=== PATIENT | male | born 1950 | race Caucasian/White ===

== ENCOUNTER 2020-09-16 20:46 | Inpatient (IN) | payer MEDICARE, BC ==
[2020-09-16] MEDS ORDERED: SODIUM CHLORIDE 0.9% 500 ML 500 ML IV STA (21:03)
[2020-09-16] MEDS ORDERED: DILTIAZEM DRIP BOLUS FROM BAG 1 MG SOLN IV ONE (21:04)
[2020-09-16] MEDS ORDERED: NITROGLYCERIN-D5W PMX 50 MG in DEXTROSE/WATER 1 250ML.BAG IV ONE (21:06)
[2020-09-16 21:14] LABS: Basophils % (A) 1 %; Eosinophils # (A) 0.5 k/uL (0-0.7); Eosinophils % (A) 6 %; HGB 14.8 gm/dL (13.0-17.5); Lymphocytes # (A) 1.6 k/uL (1.0-4.8); Lymphocytes % (A) 20 %; MCHC 32.2 g/dL (31.0-37.0); MCV 93.1 fL (80.0-100.0); Mean Platelet Volume 8.3; Monocytes # (A) 0.4 k/uL (0-1.0); Monocytes % (A) 5 %; Neutrophils # (A) 5.4 k/uL (1.3-7.7); Neutrophils % (A) 67 %; Platelet Count 164 k/uL (150-450); RBC 4.94 m/uL (4.30-5.90); RDW 13.6 % (11.5-15.5)
[2020-09-16 21:21] LABS: ALT 25 U/L (4-49); AST 26 U/L (17-59); African American GFR (CKD) >90 (>60 ml/min/1.73 sqM); Albumin 3.9 g/dL (3.5-5.0); Alkaline Phosphatase 69 U/L (38-126); Anion Gap 8 mmol/L; Blood Urea Nitrogen 20 mg/dL (9-20); Calcium 9.1 mg/dL (8.4-10.2); Carbon Dioxide 25 mmol/L (22-30); Chloride 106 mmol/L (98-107); Glucose 224 mg/dL (74-99); Magnesium 1.8 mg/dL (1.6-2.3); Non-African American GFR(CKD) 82 (>60 ml/min/1.73 sqM); Potassium 3.9 mmol/L (3.5-5.1); Sodium 139 mmol/L (137-145); Total Bilirubin 0.4 mg/dL (0.2-1.3); Total Protein 6.9 g/dL (6.3-8.2)
[2020-09-16] MEDS ORDERED: HEPARIN SODIUM,PORCINE 5,000 UNIT/ML 1 ML VIAL IV PRN (21:25)
[2020-09-16] MEDS ORDERED: HEPARIN SODIUM,PORCINE 5,000 UNIT/ML 1 ML VIAL IV ONE (21:25)
[2020-09-16] MEDS ORDERED: HEPARIN SOD,PORK IN 0.45% NACL 25,000 UNIT in 0.45% NACL 1 250ML.BAG IV SCH (21:30)
[2020-09-16] MEDS ORDERED: DILTIAZEM 125 MG in SODIUM CHLORIDE 0.9% 100 ML IV SCH (21:30)
--- NOTE | 2020-09-16 21:32 | XR ---
EXAMINATION TYPE: XR chest 2V DATE OF EXAM: 09/16/2020 COMPARISON: March 06, 2009 HISTORY: Chest pain TECHNIQUE: 2 views FINDINGS: There is no heart failure nor confluent pneumonic infiltrate. There is slight blunting righ t costophrenic angle. There are no hilar masses. Heart size is normal. There are chest leads. IMPRESSION: Pleural diaphragmatic scarring at the right lung base unchanged. No acute lung disease.
[2020-09-16 21:37] LABS: INR 1.1 (<1.2); Prothrombin Time 11.2 sec (9.0-12.0)
--- NOTE | 2020-09-16 21:40 | ED ---
General Adult HPI - General Chief complaint: Chest Pain Stated complaint: Chest pain Time Seen by Provider: 09/16/20 21:03 Source: patient, EMS, RN notes reviewed, old records reviewed Mode of arrival: EMS Limitations: no limitations - History of Present Illness Initial comments: 70-year-old male history of hypertension, diabetes, tobacco use presenting for evaluation of chest pain. Pain began approximately one hour prior to arrival. This was left upper chest pain which radiated to both upper extremities. Was associated with diaphoresis. No vomiting. He has no known history of coronary artery disease. He states that approximately one week ago he had a similar episode which was very brief. EMS was contacted the patient was given aspirin and nitroglycerin and he has had significant improvement in his pain at the time my evaluation. - Related Data Allergies Allergy/AdvReac Type Severity Reaction Status Date / Time No Known Allergies Allergy Verified 09/16/20 22:11 Review of Systems ROS Statement: Those systems with pertinent positive or pertinent negative responses have been documented in the HPI. ROS Other: All systems not noted in ROS Statement are negative. Past Medical History Past Medical History: COPD, Hypertension History of Any Multi-Drug Resistant Organisms: None Reported Past Surgical History: Adenoidectomy, Orthopedic Surgery, Tonsillectomy Past Psychological History: No Psychological Hx Reported Smoking Status: Current every day smoker Past Alcohol Use History: Rare Past Drug Use History: None Reported General Exam Limitations: no limitations General appearance: alert, in no apparent distress Head exam: Present: atraumatic, normocephalic Eye exam: Present: normal appearance, PERRL ENT exam: Present: normal exam Neck exam: Present: normal inspection. Absent: tenderness, meningismus Respiratory exam: Present: normal lung sounds bilaterally. Absent: respiratory distress, wheezes Cardiovascular Exam: Present: tachycardia, irregular rhythm GI/Abdominal exam: Present: soft. Absent: distended, tenderness, guarding, rebound Extremities exam: Present: normal inspection, normal capillary refill. Absent: pedal edema Neurological exam: Present: alert, oriented X3, CN II-XII intact. Absent: motor sensory deficit Psychiatric exam: Present: normal affect, normal mood Skin exam: Present: warm, dry, intact. Absent: cyanosis, diaphoretic Course Vital Signs 09/16/20 09/16/20 20:48 21:35 Temperature 98.2 F Pulse Rate 134 H 114 H Respiratory 18 18 Rate Blood Pressure 142/87 111/86 O2 Sat by Pulse 97 98 Oximetry - Reevaluation(s) Reevaluation #1: 09/16/20 3253 Case discussed with both Dr. Gilmore and Dr. Martinez. EKG Findings - EKG Comments: EKG Findings:: EKG: Atrial fibrillation with RVR, lateral precordial depression, no ST segment elevation, rate of 120, QRS duration 102, QTC 466 Medical Decision Making - Medical Decision Making 70-year-old male presented with chest pain, found to be in A. fib with RVR with lateral precordial depression on EKG. No ST segment elevation. He started on Cardizem, he had been given aspirin and nitroglycerin by EMS. He is heparinized in the emergency department. Chest x-ray is negative for focal pneumonia, no acute findings. He has a normal CBC, normal CMP with exception of hyperglycemia and an initial troponin of 0.086. Case is discussed with both the admitting physician and the rigging up man. He will be admitted to a monitored bed. Diagnosis: A. fib with RVR, new onset. Non-ST segment elevated SD. - Lab Data Result diagrams: 09/16/20 21:05 09/16/20 21:05 Lab Results 09/16/20 09/16/20 09/16/20 Range/Units 21:05 21:05 21:05 WBC 8.0 (3.8-10.6) k/uL RBC 4.94 (4.30-5.90) m/uL Hgb 14.8 (13.0-17.5) gm/dL Hct 46.0 (39.0-53.0) % MCV 93.1 (80.0-100.0) fL MCH 30.0 (25.0-35.0) pg MCHC 32.2 (31.0-37.0) g/dL RDW 13.6 (11.5-15.5) % Plt Count 164 (150-450) k/uL MPV 8.3 Neutrophils % 67 % Lymphocytes % 20 % Monocytes % 5 % Eosinophils % 6 % Basophils % 1 % Neutrophils # 5.4 (1.3-7.7) k/uL Lymphocytes # 1.6 (1.0-4.8) k/uL Monocytes # 0.4 (0-1.0) k/uL Eosinophils # 0.5 (0-0.7) k/uL Basophils # 0.0 (0-0.2) k/uL PT 11.2 (9.0-12.0) sec INR 1.1 (<1.2) APTT 26.0 (22.0-30.0) sec Sodium 139 (137-145) mmol/L Potassium 3.9 (3.5-5.1) mmol/L Chloride 106 (98-107) mmol/L Carbon Dioxide 25 (22-30) mmol/L Anion Gap 8 mmol/L BUN 20 (9-20) mg/dL Creatinine 0.96 (0.66-1.25) mg/dL Est GFR (CKD-EPI)AfAm >90 (>60 ml/min/1.73 sqM) Est GFR (CKD-EPI)NonAf 82 (>60 ml/min/1.73 sqM) Glucose 224 H (74-99) mg/dL Calcium 9.1 (8.4-10.2) mg/dL Magnesium 1.8 (1.6-2.3) mg/dL Total Bilirubin 0.4 (0.2-1.3) mg/dL AST 26 (17-59) U/L ALT 25 (4-49) U/L Alkaline Phosphatase 69 (38-126) U/L Troponin I (0.000-0.034) ng/mL NT-Pro-B Natriuret Pep pg/mL Total Protein 6.9 (6.3-8.2) g/dL Albumin 3.9 (3.5-5.0) g/dL 09/16/20 09/16/20 Range/Units 21:05 21:05 WBC (3.8-10.6) k/uL RBC (4.30-5.90) m/uL Hgb (13.0-17.5) gm/dL Hct (39.0-53.0) % MCV (80.0-100.0) fL MCH (25.0-35.0) pg MCHC (31.0-37.0) g/dL RDW (11.5-15.5) % Plt Count (150-450) k/uL MPV Neutrophils % % Lymphocytes % % Monocytes % % Eosinophils % % Basophils % % Neutrophils # (1.3-7.7) k/uL Lymphocytes # (1.0-4.8) k/uL Monocytes # (0-1.0) k/uL Eosinophils # (0-0.7) k/uL Basophils # (0-0.2) k/uL PT (9.0-12.0) sec INR (<1.2) APTT (22.0-30.0) sec Sodium (137-145) mmol/L Potassium (3.5-5.1) mmol/L Chloride (98-107) mmol/L Carbon Dioxide (22-30) mmol/L Anion Gap mmol/L BUN (9-20) mg/dL Creatinine (0.66-1.25) mg/dL Est GFR (CKD-EPI)AfAm (>60 ml/min/1.73 sqM) Est GFR (CKD-EPI)NonAf (>60 ml/min/1.73 sqM) Glucose (74-99) mg/dL Calcium (8.4-10.2) mg/dL Magnesium (1.6-2.3) mg/dL Total Bilirubin (0.2-1.3) mg/dL AST (17-59) U/L ALT (4-49) U/L Alkaline Phosphatase (38-126) U/L Troponin I 0.086 H* (0.000-0.034) ng/mL NT-Pro-B Natriuret Pep 425 pg/mL Total Protein (6.3-8.2) g/dL Albumin (3.5-5.0) g/dL Critical Care Time Critical Care Time: Yes Total Critical Care Time: 35 Disposition Clinical Impression: Acute non-ST elevation myocardial infarction (NSTEMI), Atrial fibrillation with RVR Disposition: ADMITTED IP TO THIS [facility] Condition: Serious Is patient prescribed a controlled substance at d/c from ED?: No Referrals: Nonstaff,Physician [Primary Care Provider] - 1-2 days Decision to Admit Reason: Admit from EC Decision Date: 09/16/20 Decision Time: 22:10
[2020-09-16] MEDS ORDERED: NON FORMULARY DRUG (Fluticasone/Umeclidin/Vilanter [Trelegy Ellipta 100-62.5-25] 1 EACH Bl INHALATION SCH (22:45)
[2020-09-17] MEDS ORDERED: IPRATROPIUM-ALBUTEROL 3 ML NEB INHALATION PRN (00:21)
--- NOTE | 2020-09-17 00:30 | P.HPIM ---
History of Present Illness H&P Date: 09/16/20 Chief Complaint: chest pain 70 year old male , smoker, hypertension controlled with meds, DM on oral hypoglycemic agents. patient comes in after experiencing sudden chest pain , 8/10 in severity , described as left sided and retrosternal heaviness radiating to both arms, associated with numbness over bilateral hands. denies any associated nausea vomiting, SOB, dizziness, wheezing , or sweating. he recalls raking leaves and doing some yard work earlier today, however, he was walking the dog when his chest mohan started. he also recalls similar event about 4 days ago , again after he raked leaves and did yard work. pain did not subside, he found his blood pressure elevated, and his pulse thready , decided to notify EMS. pain started improving after receiving 2 nitro SL, and aspirin. he currently denies any chest pain , but feels some discomfort, denies any URI symptoms, or GI symptoms. patient denies any cardiac history , but had stress test done a year ago , and was negative in the ED, EKG showed new onset afib with RVR, elevated trops. Review of Systems Pertinent positives as noted in HPI. All other systems were reviewed and are negative Past Medical History Past Medical History: COPD, Hypertension History of Any Multi-Drug Resistant Organisms: None Reported Past Surgical History: Adenoidectomy, Orthopedic Surgery, Tonsillectomy Past Psychological History: No Psychological Hx Reported Smoking Status: Current every day smoker Past Alcohol Use History: Rare Past Drug Use History: None Reported - Past Family History family Family Medical History: Coronary Artery Disease (CAD) Medications and Allergies Home Medications Medication Instructions Recorded Confirmed Type Aspirin [Adult Low Dose Aspirin EC] 81 mg PO HS 09/16/20 09/16/20 History Fluticasone/Umeclidin/Vilanter 1 puff INHALATION Q72H 09/16/20 09/16/20 History [Trelegy Ellipta 100-62.5-25] Losartan Potassium [Cozaar] 25 mg PO HS 09/16/20 09/16/20 History Multivitamins, Thera [Multivitamin 1 tab PO HS 09/16/20 09/16/20 History (formulary)] metFORMIN HCL [Glucophage] 500 mg PO BID 09/16/20 09/16/20 History Allergies Allergy/AdvReac Type Severity Reaction Status Date / Time No Known Allergies Allergy Verified 09/16/20 22:11 Physical Exam Vitals: Vital Signs Temp Pulse Resp BP Pulse Ox 09/16/20 22:30 106 H 18 122/78 98 09/16/20 22:15 108 H 18 135/88 98 09/16/20 22:00 114 H 18 127/85 98 09/16/20 21:35 114 H 18 111/86 98 09/16/20 20:48 98.2 F 134 H 18 142/87 97 Intake and Output 09/16/20 09/16/20 09/16/20 06:59 14:59 22:59 Other: Weight 114.759 kg Constitutional: No acute distress, conversant, pleasant Eyes: Anicteric sclerae, moist conjunctiva, Pupils equal round reactive to light ENMT: NC/AT Oropharynx clear, no erythema, or exudates Neck: Supple, FROM, no masses, or JVD No carotid bruits No thyromegaly Lungs: Clear to auscultation Clear to percussion Normal respiratory effort, no accessory muscle use Cardiovascular: Heart regular in rate and rhythm, No murmurs, gallops, or rubs No peripheral edema Abdominal: Soft Nontender, no guarding, rebound or rigidity Abdomen moving with respiration Normoactive bowel sounds No hepatomegaly, No splenomegaly No palpable mass No abdominal wall hernia noted Skin: Normal temperature, tone, texture, turgor No induration No subcutaneous nodules No rash, lesions No ulcers Extremities: No digital cyanosis No clubbing Pedal pulses intact and symmetrical Radial pulses intact and symmetrical No calf tenderness Psychiatric: Alert and oriented to person, place and time Appropriate affect fair judgement Neuro Muscles Strength 5/5 in all 4 extremities Sensation to light touch grossly present throughout Cranial nerves II-XII grossly intact No focal sensory deficits Lymphatics: no palpable cervical or supraclavicular , or inguinal lymph nodes Results CBC & Chem 7: 09/16/20 21:05 09/16/20 21:05 Labs: Abnormal Lab Results - Last 24 Hours (Table) 09/16/20 09/16/20 Range/Units 21:05 21:05 Glucose 224 H (74-99) mg/dL Troponin I 0.086 H* (0.000-0.034) ng/mL Assessment and Plan Assessment: new onset Aifb with RVR NSTEMI plan aspirin , statin monitoring analyst trend trops nitro for pain and blood pressure control cardizem drip heparin drip cardiology consult DM insulin sliding scale hypertension resume home meds CODE STATUS:full code DVT prophylaxis: on heparin drip Discussed with: Patient, ER Anticipated length of stay < than [address]: home A total of 75 minutes was spent on the care of this complex patient more than 50% of the time was spent in counseling and care coordination.
[2020-09-17 03:34] LABS: Basophils # (A) 0.1 k/uL (0-0.2); Basophils % (A) 1 %; Eosinophils # (A) 0.3 k/uL (0-0.7); Eosinophils % (A) 4 %; HCT 42.9 % (39.0-53.0); HGB 14.4 gm/dL (13.0-17.5); Lymphocytes # (A) 1.9 k/uL (1.0-4.8); Lymphocytes % (A) 28 %; MCH 31.4 pg (25.0-35.0); MCHC 33.7 g/dL (31.0-37.0); MCV 93.3 fL (80.0-100.0); Mean Platelet Volume 8.5; Monocytes # (A) 0.4 k/uL (0-1.0); Monocytes % (A) 7 %; Neutrophils % (A) 58 %; Platelet Count 153 k/uL (150-450); RDW 13.2 % (11.5-15.5); WBC 6.8 k/uL (3.8-10.6)
[2020-09-17 04:15] LABS: Cholesterol 159 mg/dL (<200); HDL Cholesterol 53 mg/dL (40-60); LDL Cholesterol,Calculated 86 mg/dL (0-99); Triglycerides 100 mg/dL (<150)
[2020-09-17] MEDS ORDERED: VERAPAMIL 2.5 MG/ML 2 ML AMP ONE (06:39)
[2020-09-17] MEDS ORDERED: fentaNYL (PF) 50 MCG/ML 2 ML AMP ONE (06:40)
[2020-09-17] MEDS ORDERED: LIDOCAINE 1% INJ 10MG/ML (20 ML MDV) ONE (06:40)
[2020-09-17] MEDS ORDERED: fentaNYL (PF) 50 MCG/ML 2 ML AMP IV ONE (06:46)
[2020-09-17] MEDS ORDERED: LIDOCAINE 1% INJ 10MG/ML (20 ML MDV) SQ ONE (06:47)
[2020-09-17] MEDS ORDERED: IV FLUID CONTINUATION 900 ML IV ONE (06:50)
[2020-09-17] MEDS ORDERED: VERAPAMIL SYRINGE (5 MG/10 ML) INTRAARTER ONE (06:50)
[2020-09-17] MEDS ORDERED: HEPARIN SODIUM 1,000 UN/ML (10ML VL) ONE (06:51)
[2020-09-17] MEDS ORDERED: HEPARIN SODIUM 1,000 UN/ML (10ML VL) IV ONE (06:55)
[2020-09-17] MEDS ORDERED: MIDAZOLAM 2 MG/2 ML VIAL IVP ONE (06:55)
[2020-09-17] MEDS ORDERED: RX INFO: IV CONTRAST WAS GIVEN 1 EACH MISC MISCELLANE PRN (07:17)
[2020-09-17] MEDS ORDERED: HEPARIN SODIUM,PORCINE 5,000 UNIT/ML 1 ML VIAL IV PRN (07:20)
[2020-09-17] MEDS ORDERED: SODIUM CHLORIDE 0.9% 1,000 ML IV SCH (07:30)
--- NOTE | 2020-09-17 07:34 | CONS ---
CONSULTATION CARDIOLOGY CONSULTATION: Mr. Lindsey is a 70-year-old male with known history of hypertension, hyperlipidemia, diabetes mellitus, chronic tobacco use, who presented to the hospital with an episode of chest discomfort. He was walking his dog when he had discomfort in the chest radiating to the left arm and when he checked his blood pressure, he noted that his heart rate was fast. When he came into the emergency room, he was in atrial fibrillation with rapid ventricular response. His pain resolved after getting sublingual nitroglycerin by the EMS. The patient is relatively active physically, has no exertional chest pain. He denies any prior history of cardiac disease. He, according to him, underwent a stress test about a year ago that was unremarkable. He denies any history of palpitation or arrhythmia. His breathing is stable, although he has chronic dyspnea at times related to his smoking. He denies any significant PND or orthopnea. He has some peripheral edema that resolved a few months ago. His coronary risk factors are remarkable for smoking, hypertension, diabetes. There is a family history of premature coronary artery disease in his father. MEDICATION: Include metformin 500 mg twice a day, Trelegy Ellipta, Cozaar 25 mg daily, and aspirin. REVIEW OF SYSTEMS: RESPIRATORY SYSTEM: He has mild dyspnea on exertion related to his chronic tobacco use. GI SYSTEM: No recent GI bleeding. No peptic ulcer disease. SYSTEM: No dysuria or hematuria. NERVOUS SYSTEM: No stroke or seizure. SOCIAL HISTORY: He does not drink alcohol. He drinks moderate caffeine and smokes as noted. PHYSICAL EXAMINATION: GENERAL: A 70-year-old male, alert, oriented, no apparent distress. VITAL SIGNS: Blood pressure 122/70 with a heart in the 60s. HEAD: Normocephalic, eyes sclerae anicteric. NECK: Good carotid upstroke. No bruit, no jugular venous distention. LUNGS: Clear to auscultation. HEART: Regular rate and rhythm S1, S2. No S3 with a systolic murmur at the base. No diastolic murmur. No rub. ABDOMEN: Soft, nontender, positive bowel sounds, no organomegaly. EXTREMITIES: No edema. Intact pulses. LAB DATA: Revealed BUN and creatinine of 20 and 0.96. Troponin 0.86, 1.7, 5.4, cholesterol 159, LDL of 86. Hemoglobin of 14.4. IMAGING: Chest x-ray revealed no acute infiltrate. EKG revealed atrial fibrillation rate of [address]-T wave changes with small QS in leads 3 and AVF. Subsequent EKG reveals sinus mechanism with mild ST-T wave changes in leads 2, 3 and AVF. IMPRESSION: 1. Non ST-segment elevation myocardial infarction. 2. Paroxysmal atrial fibrillation back in sinus mechanism. 3. Hypertension. 4. Diabetes. 5. Chronic tobacco use. RECOMMENDATION: I have recommended to proceed with coronary angiography to assess his status and guide his treatment. The rationale behind the procedures, risks and complication were discussed with the patient and he is full understanding and agreement. Thank you for this consult. Will follow with you. MMROSCOE / IJN: [id number] / CLYDE
[2020-09-17 07:45] LABS: Glucose,Whole Blood 108 mg/dL (75-99)
[2020-09-17] MEDS ORDERED: SYMBICORT 80-4.5 MCG INHALER INHALATION SCH (08:00)
[2020-09-17] MEDS ORDERED: ALBUTEROL NEBULIZED 2.5 MG/3 ML INHALATION PRN (08:32)
[2020-09-17] MEDS ORDERED: ASPIRIN 325 MG TAB PO SCH (09:00)
--- NOTE | 2020-09-17 09:01 | CC ---
CARDIAC CATHETERIZATION REPORT PROCEDURE PERFORMED: Cardiac catheterization. HISTORY: Mr. Lindsey is a 70-year-old male with a known history of hypertension, diabetes, chronic tobacco use and a family history of premature coronary artery disease who presented with symptoms of chest discomfort radiating to the left arm and atrial fibrillation. He subsequently converted to sinus mechanism. He had mild troponin elevation. In view of that, recommendation regarding cardiac catheterization, the procedures, risks, and complication were discussed with the patient who is in full understanding and agreement. PROCEDURE: Patient was brought to flower shop laborer/designer in a fasting semi-sedated state after receiving fentanyl and Benadryl and achieving moderate conscious sedated state. Using Xylocaine anesthesia and Seldinger technique, a 6-Zambian sheath was introduced in the right radial artery. Selective right and left angiography with 5-Zambian, 3.5 bent, right and left Nevin catheters. Multiple views of the coronary arteries including hemiaxial views were obtained. Following that, a 5-[place]ian tight pigtail catheter was introduced in the left ventricle and a 30-degree COSME view of the left ventricle was obtained. Following that, catheter and sheath were removed. Hemostasis was obtained and deployment of TR band. There was no immediate complication. Patient was returned to his room in stable condition. Of note, the patient received an additional 3000 units intravenous heparin as well as intra-arterial verapamil. FINDINGS: FLUOROSCOPY: There was severe calcification involving the left anterior descending artery, left main and the right coronary artery. LEFT MAIN: This is a large-sized vessel, bifurcating into left circumflex, left anterior descending artery. Left main coronary artery has a 10% plaque distally. The rest of the vessel has no high-grade stenosis LEFT ANTERIOR DESCENDING ARTERY: This is a large-sized vessel reaching to the apex with a wraparound apex segment giving rise to a very proximal diagonal branch. At the takeoff of the first septal tabber, there is a 99% stenosis and following that there is a long tubular lesion up to 60% in the LAD extending to the mid segment. The rest of the vessel has no high-grade stenosis. LEFT CIRCUMFLEX: This is a nondominant vessel, large in caliber giving rise to a large obtuse marginal branch. The left circumflex proximally has 20% to 30% plaque. The rest of the vessel has no high-grade stenosis. RIGHT CORONARY ARTERY: This vessel is totally occluded proximally with bridging collaterals and minimal antegrade flow. COLLATERALS: There is good collateral from the left coronary system into the right side PD and PLV and distal right coronary artery. LEFT VENTRICULOGRAM: Left ventriculogram was performed in 30-degree COSME view and revealed a normal size with inferior wall hypokinesis, estimated ejection fraction 45%. There was no significant mitral regurgitation. There was a suggestion of an abdominal aortic aneurysm, although not well visualized. HEMODYNAMICS: There was no gradient across the aortic valve/ the left ventricle end-diastolic pressure was 16-20 mmHg. CONCLUSION: 1. Calcified coronary arteries. 2. 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 3. Critical stenosis in the proximal left anterior descending in a long segment. 4. Mild disease in the left circumflex. 5. Mildly impaired left ventricular systolic function. RECOMMENDATION: In view of finding anatomy and the history of diabetes mellitus, I have recommend proceeding with evaluation for coronary artery bypass grafting to the LAD and to the right coronary artery. Those findings and recommendation were discussed with the patient and his family who consented and are in agreement. Duration of procedure is 21 minute. MMODL / IJN: [id number] /
--- NOTE | 2020-09-17 09:40 | CONS ---
CONSULTATION PULMONARY/CRITICAL CARE CONSULTATION: DATE OF SERVICE: 09/17/2020 This is a 70-year-old gentleman who is the father of one of our cardiothoracic nurse practitioners. He has a history of long-standing hypertension and recently diagnosed diabetes. He also has underlying COPD from heavy tobacco use of more than 50 years. Anyway, he came into the emergency room on September 16 at 20:46 with complaints of chest pain. The pain was in the center of his chest and radiated to both upper extremities. He had some diaphoresis. He had no vomiting. The patient has no established history of coronary artery disease. There is a family history of CAD as well. Anyway, the patient underwent catheterization and was found to have significant coronary artery disease and is thought to be a candidate for bypass grafting. We saw him in the extended stay unit. CURRENT MEDICATIONS: Include the recently initiated metformin for diabetes, Trelegy 1 puff a day, multivitamins, losartan, and baby aspirin. ALLERGIES: Denied. MEDICAL HISTORY: Recently diagnosed diabetes mellitus and hypertension, as well as underlying COPD. SURGICAL HISTORY: Includes adenoidectomy, tonsillectomy, and some orthopedic procedures. SOCIAL HISTORY: Positive for ongoing tobacco use. He has been smoking for 50+ years. Alcohol use is rare. No illicit drug use. OCCUPATIONAL HISTORY: He is currently retired. Apparently worked as a laborer landscape. REVIEW OF SYSTEMS: CONSTITUTIONAL: Negative. NEUROLOGIC: Negative. HEENT: Negative. CARDIOVASCULAR: Chest pain. PULMONARY: Wheezing, shortness of breath. GI: Negative. : Negative. RHEUMATOLOGIC: Negative. IMMUNOLOGIC: Negative. ENDOCRINOLOGIC: Negative. DERMATOLOGIC: Negative. PHYSICAL EXAMINATION: VITAL SIGNS: Current vital signs include a temperature of 98.1, heart rate is 61, respiratory rate 16, blood pressure 124/68 and room air saturation 96%. Appears in no acute distress. HEENT: Examination is grossly unremarkable. NECK: Supple. Full range of motion. No adenopathy. Neck veins are flat. CARDIOVASCULAR: Examination reveals regular rhythm and rate. S1, S2 normal. Heart rate about 60. LUNGS: Reveal some diffuse inspiratory and expiratory wheezes. No rhonchi. No crackles. Breath sounds equal. ABDOMEN: Soft. EXTREMITIES: Intact. No edema. SKIN: Without rash. NEUROLOGIC: Examination is brief but nonfocal. LABORATORY DATA: White count 6.8, hemoglobin 14.4, hematocrit 42.9, platelet count is 153,000. PT/INR normal. PTT 35.8. Sodium, potassium, chloride, CO2 all normal. Anion gap normal. BUN and creatinine were normal. Glucose 224. Troponins were 0.086, 1.760 and 5.460. EKG shows evidence of some atrial fibrillation with RVR. CURRENT MEDICATIONS: Include aspirin, Lipitor, Trelegy 1 puff a day, to be brought from home, IV heparin, insulin, losartan, metoprolol, Bactroban ointment, nitroglycerin ointment, and saline at 75 mL an hour. ASSESSMENT: 1. Status post catheterization with evidence of coronary artery disease, cath report is currently pending. 2. History of hypertension. 3. Non ST-segment elevation myocardial infarction. 4. Atrial fibrillation. 5. Diabetes mellitus. 6. Long history of tobacco use, with likely underlying chronic obstructive pulmonary disease. PLAN: The patient will bring his Trelegy from home. It is a good medication. This is a combination of long-acting muscarinic antagonist, long-acting beta agonist, inhaled corticosteroid. We will add some short-acting beta agonist p.r.n. No additional recommendations are made. Probably bypass grafting early next week. No additional recommendations are made other than ordering a pulmonary function test. MMODL / IJN: [id number] /
--- NOTE | 2020-09-17 09:40 | US ---
EXAMINATION TYPE: US carotid duplex BILAT DATE OF EXAM: 09/17/2020 COMPARISON: NONE CLINICAL HISTORY: 70-year-old male Pre-Op Cardiac Surgery. TECHNIQUE: Carotid duplex ultrasound examination. An direct Doppler criteria was utilized. FINDINGS: EXAM MEASUREMENTS: RIGHT: Peak Systolic Velocity (PSV) cm/sec ----- Right CCA: 72.1 ----- Right ICA: 69.4 ----- Right ECA: 78.2 ICA/CCA ratio: 1.0 RIGHT: End Diastole cm/sec ----- Right CCA: 15.4 ----- Right ICA: 26.7 ----- Right ECA: 4.9 LEFT: Peak Systolic Velocity (PSV) cm/sec ----- Left CCA: 46.0 ----- Left ICA: 66.8 ----- Left ECA: 111.3 ICA/CCA ratio: 1.5 LEFT: End Diastole cm/sec ----- Left CCA: 13.2 ----- Left ICA: 28.4 ----- Left ECA: 7.0 VERTEBRALS (direction of flow): Right Vertebral: Antegrade Left Vertebral: Antegrade Rhythm: Normal Administrative Library Assistant notes: Bilateral intimal thickening, minimal plaque bilateral bulb, no elevated velocitie s, no significant stenosis. IMPRESSION: No hemodynamically significant internal carotid artery stenosis on either side. Criteria for Assigning % of Stenosis / Diameter reduction (Estimation based on the indirect measurements of the internal carotid artery velocities (ICA PSV). 1. Normal (no stenosis)=ICA PSV < 125 cm/s: ratio < 2.0: ICA EDV<40 cm/s. 2. Less than 50% stenosis=ICA PSV < 125 cm/s: ratio < 2.0: ICA EDV<40 cm/s. 3. 50 to 69% stenosis=ICA PSV of 125 to 230 cm/s: ration 2.0 ? 4.0: ICA EDV 40-100 cm/s. 4. Greater than 70% stenosis to near occlusion= ICA PSV > 230 cm/s: ratio > 4.0: ICA EDV > 100 cm/s. 5. Near occlusion= ICA PSV velocities may be low or undetectable: variable ratio and ICA EDV. 6. Total occlusion=unable to detect flow.
--- NOTE | 2020-09-17 09:43 | US ---
EXAMINATION TYPE: US duplex aorta DATE OF EXAM: 09/17/2020 COMPARISON: NONE CLINICAL HISTORY: 70-year-old male assess for AAA. Pre op cardiac surgery TECHNIQUE: Multiple sonographic images of the abdominal aorta are obtained. FINDINGS: EXAM MEASUREMENTS: Abdominal Aorta: Proximal: 3.0 x 2.8 cm Mid: 2.2 x 2.0cm Distal: 2.2 x 2.0cm Bifurcation: obscured by overlying midline bowel gas IMPRESSION: Mildly aneurysmal proximal abdominal aorta at 3.0 cm. The common iliac arteries are obscured by bowel gas.
[2020-09-17] MEDS: NITROGLYCERIN OINT 1 INCH/GM PACKET TOPICAL SCH ×2 (10:00→16:17)
--- NOTE | 2020-09-17 11:33 | ECHOF ---
Referral Reason:mi MEASUREMENTS -------- HEIGHT: 185.4 cm WEIGHT: 114.8 kg BP: 122/72 RVIDd: 2.5 cm (< 3.3) IVSd: 1.1 cm (0.6 - 1.1) LVIDd: 5.4 cm (3.9 - 5.3) LVPWd: 1.4 cm (0.6 - 1.1) IVSs: 1.6 cm LVIDs: 4.0 cm LVPWs: 1.4 cm LAESV Index (A-L): 22.30 ml/m Ao Diam: 3.3 cm (2.0 - 3.7) AV Cusp: 2.3 cm (1.5 - 2.6) LA Diam: 3.7 cm (2.7 - 3.8) MV EXCURSION: 17.961 mm (> 18.000) MV EF SLOPE: 105 mm/s (70 - 150) EPSS: 1.3 cm MV E Yaron: 0.86 m/s MV DecT: 306 ms MV A Yaron: 0.80 m/s MV E/A Ratio: 1.07 RAP: 5.00 mmHg RVSP: 8.33 mmHg FINDINGS -------- This was a technically difficult study with suboptimal views. The left ventricular size is normal. There is borderline concentric left ventricular hypertrophy. Overall left ventricular systolic function is mildly impaired with, an EF between 45 - 50 %. Juany l LAP Grade 1 Diastolic Dysfunction. Basal inferior LV wall motion is hypokinetic. Basal inferos eptal LV wall motion is hypokinetic. The right ventricle is normal in size. The left atrial size is normal. Normal LA size by volume 22+/-6 ml/m2. The right atrial size is normal. Lumason used Aortic valve is trileaflet and is mildly thickened. The mitral valve is normal. There is trace mitral regurgitation. The tricuspid valve appears structurally normal. Trace tricuspid regurgitation present. Right ben tricular systolic pressure is normal at < 35 mmHg. There is no pulmonic regurgitation present. The aortic root size is normal. IVC Not well visulized. There is no pericardial effusion. CONCLUSIONS -------- 1. The left ventricular size is normal. 2. There is borderline concentric left ventricular hypertrophy. 3. Overall left ventricular systolic function is mildly impaired with, an EF between 45 - 50 %. 4. Normal LAP Grade 1 Diastolic Dysfunction. 5. Basal inferior LV wall motion is hypokinetic. 6. Basal inferoseptal LV wall motion is hypokinetic. 7. Aortic valve is trileaflet and is mildly thickened. 8. There is trace mitral regurgitation. 9. Trace tricuspid regurgitation present. 10. There is no pericardial effusion. QUALITY RN: Brandy Schmid RDCS
[2020-09-17 12:35] LABS: Basophils # (A) 0.1 k/uL (0-0.2); Basophils % (A) 1 %; Eosinophils # (A) 0.3 k/uL (0-0.7); Eosinophils % (A) 4 %; HCT 44.3 % (39.0-53.0); HGB 14.4 gm/dL (13.0-17.5); Lymphocytes # (A) 1.7 k/uL (1.0-4.8); Lymphocytes % (A) 22 %; MCH 30.8 pg (25.0-35.0); MCHC 32.4 g/dL (31.0-37.0); MCV 95.2 fL (80.0-100.0); Mean Platelet Volume 8.3; Monocytes # (A) 0.5 k/uL (0-1.0); Monocytes % (A) 6 %; Neutrophils # (A) 5.1 k/uL (1.3-7.7); Neutrophils % (A) 66 %; Platelet Count 137 k/uL (150-450); RBC 4.66 m/uL (4.30-5.90); RDW 13.2 % (11.5-15.5); WBC 7.8 k/uL (3.8-10.6)
[2020-09-17] MEDS ORDERED: NITROGLYCERIN SL TABS 0.4 MG TAB SUBLINGUAL ONE ×2 (12:49→12:55)
[2020-09-17 12:53] LABS: INR 1.1 (<1.2); Prothrombin Time 11.5 sec (9.0-12.0)
[2020-09-17 12:56] LABS: Partial Thromboplastin Time 19.4 sec (22.0-30.0)
[2020-09-17] MEDS ORDERED: HEPARIN SOD,PORK IN 0.45% NACL 25,000 UNIT in 0.45% NACL 1 250ML.BAG IV ONE (13:00)
[2020-09-17] MEDS: HEPARIN SOD,PORK IN 0.45% NACL 25,000 UNIT in 0.45% NACL 1 250ML.BAG IV SCH (13:00)
[2020-09-17] MEDS: METOPROLOL TARTRATE 25 MG TAB PO SCH ×2 (13:00→21:42)
[2020-09-17 13:04] LABS: ALT 28 U/L (4-49); AST 53 U/L (17-59); African American GFR (CKD) >90 (>60 ml/min/1.73 sqM); Albumin 3.8 g/dL (3.5-5.0); Alkaline Phosphatase 63 U/L (38-126); Anion Gap 6 mmol/L; Blood Urea Nitrogen 17 mg/dL (9-20); Carbon Dioxide 25 mmol/L (22-30); Chloride 109 mmol/L (98-107); Glucose 104 mg/dL (74-99); Magnesium 1.8 mg/dL (1.6-2.3); Non-African American GFR(CKD) 90 (>60 ml/min/1.73 sqM); Potassium 4.7 mmol/L (3.5-5.1); Sodium 140 mmol/L (137-145); Total Bilirubin 0.6 mg/dL (0.2-1.3); Total Protein 6.7 g/dL (6.3-8.2)
[2020-09-17] MEDS: INSULIN ASPART (NovoLOG) 100 UNIT/ML VIAL SQ SCH ×4 (13:13→21:43)
[2020-09-17 14:38] LABS: Appearance,Urine Clear (Clear); Bilirubin,Urine Negative (Negative); Blood,Urine Trace (Negative); Color,Urine Yellow; Glucose,Urine (UA) Negative (Negative); Ketones,Urine Negative (Negative); Leukocyte Esterase,Urine Negative (Negative); Mucus,Urine Rare /hpf; Nitrite,Urine Negative (Negative); PH, Urine 5.5 (5.0-8.0); Protein,Urine Negative (Negative); RBC,Urine 2 /hpf (0-5); Urobilinogen,Urine <2.0 mg/dL (<2.0); WBC,Urine 2 /hpf (0-5)
[2020-09-17 14:45] LABS: Specific Gravity,Urine >1.050 (1.001-1.035)
[2020-09-17] MEDS ORDERED: MD COMMUNICATION TO PHARMACY 1 EACH MISC PO ONE ×2 (14:45)
--- NOTE | 2020-09-17 15:18 | P.PN ---
Subjective Progress Note Date: 09/17/20 (delayed charting seen at 1205) Principal diagnosis: chest pain Patient is a 70-year-old male with a history of tobacco abuse, hypertension, prediabetes, and COPD who presented to the emergency department with complaints of chest pain. On arrival via EMS he received 2 nitroglycerin and aspirin and had a improvement in his chest pain. In the emergency department he underwent an extensive evaluation. Initial vital signs showed a heart rate of 134 and a blood pressure 42/87. Initial laboratory analysis demonstrated an elevated troponin at 0.086. He was admitted for further management of his new onset atrial fibrillation with rapid ventricular response and non-ST segment elevated myocardial infarction. He was placed on nitro for pain and blood pressure contr ol, Cardizem drip, and a heparin drip. His aspirin was continued. He was also started on a statin. His metformin was held and started on sliding scale insulin. Overnight he converted to normal sinus rhythm and his Cardizem drip was discontinued. His troponin continued to rise to a max of 5.7. He was therefore urgently taken to cardiac catheterization which demonstrated calcified coronary arteries, chronically occluded right coronary artery with collaterals from the left, and critical stenosis in the LAD and a long segment. It was determined that he likely would need cardiac bypass. Echo with EF 45-50%, Carotid dopplers negative for ischemia, Proximal abdominal aortic aneurysm 3.0 cm. Patient seen and examined at bedside and extended stay. He denies any current chest discomfort, shortness breath, nausea, or vomiting. He reports that he was diagnosed with prediabetes in April and started on metformin. He states he has never had overt diabetes in the past. General: non toxic, no distress, appears at stated age Derm: warm, dry Head: atraumatic, normocephalic, symmetric Eyes: EOMI, no lid lag, anicteric sclera Mouth: no lip lesion, mucus membranes moist Cardiovascular: S1S2 reg, no murmur, positive posterior tibial pulse bilateral, Lungs: Faint wheeze bilateral , no accessory muscle use Abdominal: soft, nontender to palpation, no guarding, no appreciable organomegaly Ext: no gross muscle atrophy, no edema, no contractures Neuro: CN II-XI grossly intact, no focal neuro deficits Psych: Alert, oriented, appropriate affect Non-ST segment elevated myocardial infarction with LAD disease in the setting of diabetes, 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 Diabetes mellitus type 2 with hyperglycemia -Stop metformin -Sliding-scale insulin -Follow blood sugars -Check hemoglobin A1c New-onset atrial fibrillation with rapid ventricular response, -Now in normal sinus rhythm -Off heparin drip and Cardizem -Follow telemetry Abdominal aortic aneurysm 3 cm -Continue outpatient follow-up Hypertension, controlled -Continue with Cozaar and beta randy -Follow blood pressures Obesity with BMI 31.6 -Outpatient structured weight loss Tobacco abuse -Cessation -Nicotine replacement if needed we'll attempt to avoid DVT prophylaxis: heparin gtt Discussed with: Patient,nursing Anticipated discharge: 7-[address]: Home A total of 35 minutes was spent on the care of this complex patient more than 50% of the time was spent in counseling and care coordination. Objective - Vital Signs Vital signs: Vital Signs Temp 98.1 F 09/17/20 06:28 Pulse 59 L 09/17/20 14:30 Resp 16 09/17/20 14:30 BP 136/72 09/17/20 14:30 Pulse Ox 99 09/17/20 14:30 Intake & Output 09/16/20 09/17/20 09/17/20 18:59 06:59 18:59 Intake Total 50 300 Balance 50 300 Weight 114.759 kg Intake: IV 50 300 Sodium Chloride 0.9% 1, 300 000 ml @ 75 mls/hr IV . [id number] [facility] Rx#:[id number] Other: # Voids 1 - Labs CBC & Chem 7: 09/17/20 12:00 09/17/20 12:00 Labs: Abnormal Lab Results - Last 24 Hours (Table) 09/16/20 09/16/20 09/16/20 Range/Units 21:05 21:05 23:55 Plt Count (150-450) k/uL APTT (22.0-30.0) sec Chloride (98-107) mmol/L Glucose 224 H (74-99) mg/dL POC Glucose (mg/dL) (75-99) mg/dL Troponin I 0.086 H* 1.760 H* (0.000-0.034) ng/mL Ur Specific [place] (1.001-1.035) Urine Blood (Negative) Urine Mucus (None) /hpf 09/17/20 09/17/20 09/17/20 Range/Units 03:10 03:11 07:42 Plt Count (150-450) k/uL APTT 35.8 H (22.0-30.0) sec Chloride (98-107) mmol/L Glucose (74-99) mg/dL POC Glucose (mg/dL) 108 H (75-99) mg/dL Troponin I 5.460 H* (0.000-0.034) ng/mL Ur Specific [place] (1.001-1.035) Urine Blood (Negative) Urine Mucus (None) /hpf 09/17/20 09/17/20 09/17/20 Range/Units 12:00 12:00 12:00 Plt Count 137 L (150-450) k/uL APTT 19.4 L (22.0-30.0) sec Chloride 109 H (98-107) mmol/L Glucose 104 H (74-99) mg/dL POC Glucose (mg/dL) (75-99) mg/dL Troponin I (0.000-0.034) ng/mL Ur Specific [place] (1.001-1.035) Urine Blood (Negative) Urine Mucus (None) /hpf 09/17/20 Range/Units 12:53 Plt Count (150-450) k/uL APTT (22.0-30.0) sec Chloride (98-107) mmol/L Glucose (74-99) mg/dL POC Glucose (mg/dL) (75-99) mg/dL Troponin I (0.000-0.034) ng/mL Ur Specific [place] >1.050 H (1.001-1.035) Urine Blood Trace H (Negative) Urine Mucus Rare H (None) /hpf
--- NOTE | 2020-09-17 15:19 | P.GSCN ---
History of Present Illness Consult date: 09/17/20 Reason for Consult: Symptomatic multivessel coronary artery disease, non-STEMI this admission. Requesting physician: Hipolito Gilmore History of present illness: This is a 62-year-old gentleman who is followed by Dr. Marimar Bowers on an outpatient basis. His past medical history significant for hypertension, diabetes mellitus type 2, history of hiatal hernia, history of sleep apnea and recurrent every day tobacco abuse. The patient presented to the emergency department here at [facility] last night with complaints of chest pain which radiated to his bilateral upper extremities and he also felt like his heart was racing. He reports he was walking his dog and once they started on their walk he developed the above-mentioned symptoms. He also reports that he had a similar episode of chest pain 4 days ago which was relieved with rest. He denies any nausea, vomiting, shortness of breath, fever, chills, orthopnea, edema or palpitations. The patient reports that his symptoms were relieved with 2 sublingual nitroglycerin. A 12-lead EKG was completed in the emergency department which showed atrial fibrillation with a heart rate of 120 with nonspecific STT wave changes in leads 3 and aVF. Initial laboratory results showed a glucose of 224, and an initial troponin level of 0.086. Subsequent troponins went as high as 5.460 and he was ruled in for a non-ST elevated myocardial infarction. Due to the patient's presenting symptoms, EKG changes and troponin results a consult was placed to Dr. Gilmore from [facility]. This morning he was taken for a heart catheterization which demonstrated a totally occluded right coronary artery, a 30% stenosis to a circumflex coronary artery, a 99% stenosis to his proximal left anterior descending coronary artery and a 70% stenosis to his mid left anterior setting coronary artery. Also during heart catheterization a left ventriculogram was completed which showed him to have an ejection fraction of 45%. Due to the findings on the cardiac catheterization a consult was placed to Dr. Harjeet Tate from cardiothoracic surgery for further evaluation and treatment recommendations including myocardial revascularization surgery. Review of Systems A 14 point review systems was completed was negative except as mentioned in HPI. Past Medical History Past Medical History: COPD, Diabetes Mellitus, Hypertension Additional Past Medical History / Comment(s): History of hiatal hernia. New- onset atrial fibrillation. History of Any Multi-Drug Resistant Organisms: None Reported Past Surgical History: Adenoidectomy, Orthopedic Surgery, Tonsillectomy Additional Past Surgical History / Comment(s): Surgery to his bilateral knees and to his left wrist. Past Psychological History: No Psychological Hx Reported Smoking Status: Current every day smoker Past Alcohol Use History: Rare Past Drug Use History: None Reported - Past Family History family Family Medical History: Coronary Artery Disease (CAD) Father Family Medical History: Coronary Artery Disease (CAD), Myocardial Infarction ([place]) Additional Family Medical History / Comment(s): His father at age 56 from a massive myocardial infarction Mother Family Medical History: CVA/TIA Additional Family Medical History / Comment(s): Mother from a stroke at age 80. Medications and Allergies Home Medications Medication Instructions Recorded Confirmed Type Aspirin [Adult Low Dose Aspirin EC] 81 mg PO HS 09/16/20 09/16/20 History Fluticasone/Umeclidin/Vilanter 1 puff INHALATION Q72H 09/16/20 09/16/20 History [Trelegy Ellipta 100-62.5-25] Losartan Potassium [Cozaar] 25 mg PO HS 09/16/20 09/16/20 History Multivitamins, Thera [Multivitamin 1 tab PO HS 09/16/20 09/16/20 History (formulary)] metFORMIN HCL [Glucophage] 500 mg PO BID 09/16/20 09/16/20 History Allergies Allergy/AdvReac Type Severity Reaction Status Date / Time No Known Allergies Allergy Verified 09/16/20 22:11 Surgical - Exam Vital Signs Temp Pulse Resp BP Pulse Ox 98.2 F 134 H 18 142/87 97 09/16/20 20:48 09/16/20 20:48 09/16/20 20:48 09/16/20 20:48 09/16/20 20:48 - General well developed, well nourished, no distress, no pain, obese - Eyes PERRL, normal ocular movement, no icteric - ENT normal pinna, normal nares, normal mucosa, no hearing loss, no congestion - Neck Neck is supple, no JVD. no masses, no bruits, trachea midline, no venous distension - Respiratory Lung sounds essentially clear throughout. No wheezes, rhonchi or crackles. Respirations are symmetrical and nonlabored. - Cardiovascular Regular rhythm and rate. S1 and S2 present, negative for S3, gallop or murmur. Bedside telemetry showing sinus bradycardia heart rate 53 BPM. No edema present. - Abdomen No guarding or rigidity. No organomegaly appreciated. Abdomen: soft, non tender, bowel sounds (Active bowel sounds all 4 quadrants present.) - Genitourinary Deferred - Rectum Deferred - Integumentary no rash, no growths, no abnormal pigmentation - Neurologic No focal or neurological deficits. Cranial nerves II through XII intact. normal coordination, normal sensation - Musculoskeletal Moves all 4 extremities appropriately. Strength equal bilateral. - Psychiatric oriented to time, oriented to person, oriented to place, speech is normal, memory intact Results - Labs 09/17/20 12:00 09/17/20 12:00 Abnormal Lab Results - Last 24 Hours (Table) 09/16/20 09/16/20 09/16/20 Range/Units 21:05 21:05 23:55 APTT (22.0-30.0) sec Glucose 224 H (74-99) mg/dL POC Glucose (mg/dL) (75-99) mg/dL Troponin I 0.086 H* 1.760 H* (0.000-0.034) ng/mL 09/17/20 09/17/20 09/17/20 Range/Units 03:10 03:11 07:42 APTT 35.8 H (22.0-30.0) sec Glucose (74-99) mg/dL POC Glucose (mg/dL) 108 H (75-99) mg/dL Troponin I 5.460 H* (0.000-0.034) ng/mL Diabetes panel 09/16/20 09/17/20 Range/Units 21:05 03:08 Sodium 139 (137-145) mmol/L Potassium 3.9 (3.5-5.1) mmol/L Chloride 106 (98-107) mmol/L Carbon Dioxide 25 (22-30) mmol/L BUN 20 (9-20) mg/dL Creatinine 0.96 (0.66-1.25) mg/dL Glucose 224 H (74-99) mg/dL Calcium 9.1 (8.4-10.2) mg/dL AST 26 (17-59) U/L ALT 25 (4-49) U/L Alkaline Phosphatase 69 (38-126) U/L Total Protein 6.9 (6.3-8.2) g/dL Albumin 3.9 (3.5-5.0) g/dL Triglycerides 100 (<150) mg/dL HDL Cholesterol 53 (40-60) mg/dL Calcium panel 09/16/20 Range/Units 21:05 Calcium 9.1 (8.4-10.2) mg/dL Albumin 3.9 (3.5-5.0) g/dL Pituitary panel 09/16/20 Range/Units 21:05 Sodium 139 (137-145) mmol/L Potassium 3.9 (3.5-5.1) mmol/L Chloride 106 (98-107) mmol/L Carbon Dioxide 25 (22-30) mmol/L BUN 20 (9-20) mg/dL Creatinine 0.96 (0.66-1.25) mg/dL Glucose 224 H (74-99) mg/dL Calcium 9.1 (8.4-10.2) mg/dL Adrenal panel 09/16/20 Range/Units 21:05 Sodium 139 (137-145) mmol/L Potassium 3.9 (3.5-5.1) mmol/L Chloride 106 (98-107) mmol/L Carbon Dioxide 25 (22-30) mmol/L BUN 20 (9-20) mg/dL Creatinine 0.96 (0.66-1.25) mg/dL Glucose 224 H (74-99) mg/dL Calcium 9.1 (8.4-10.2) mg/dL Total Bilirubin 0.4 (0.2-1.3) mg/dL AST 26 (17-59) U/L ALT 25 (4-49) U/L Alkaline Phosphatase 69 (38-126) U/L Total Protein 6.9 (6.3-8.2) g/dL Albumin 3.9 (3.5-5.0) g/dL Assessment and Plan Assessment: 1. Symptomatic multivessel coronary artery disease 2. Non-ST elevated myocardial infarction this admission 3. New onset atrial fibrillation with RVR 4. History of hypertension 5. Diabetes mellitus type 2 6. Chronic ongoing tobacco abuse 7. History of hiatal hernia 8. History of sleep apnea Plan: The patient was seen and examined as bedside in the extended stay unit. His chart and diagnostics were reviewed by Dr. Harjeet Roca. The usual preoperative course of myocardial revascularization surgery discussed in detail with the patient, all risks and benefits were reviewed with the patient and once his preoperative testing has been obtained a STS risk score will be discussed with t he patient. 5 m walk test has been deferred as patient began having active chest pain with manipulation to the bathroom with abran requiring sublingual nitro to relieve his pain. Recommend maximizing medical therapy with aspirin, statin, beta randy, we will hold ARB to avoid intra-and postoperative hypotension. Preoperative testing and preoperative teaching has been initiated. Medical management and other comorbidities per primary care service. Due to the nature of his disease process and continued chest pain or plan is for urgent coronary artery bypass graft surgery with left internal mammary artery and endoscopic left radial artery harvest, endoscopic vein harvest, intraoperative transesophageal echocardiogram to be completed on 09/19/[address] Roca. Thank you Dr. Gilmore for this consult and we will look forward to working with you in the care of this patient. I have seen, examined and agree with the nurse practitioner's findings and plan of care Time with Patient: Greater than 30
[2020-09-17] MEDS ORDERED: MD COMMUNICATION TO PHARMACY 1 EACH MISC PO PRN (15:48)
[2020-09-17] MEDS ORDERED: NON FORMULARY DRUG (Fluticasone/Umeclidin/Vilanter [Trelegy Ellipta 100-62.5-25] 1 EACH Bl INHALATION SCH (16:00)
[2020-09-17] MEDS: NON FORMULARY DRUG (Fluticasone/Umeclidin/Vilanter [Trelegy Ellipta 100-62.5-25] 1 EACH Bl INHALATION SCH (16:14)
[2020-09-17 16:43] LABS: Glucose,Whole Blood 118 mg/dL (75-99)
[2020-09-17 20:26] LABS: Glucose,Whole Blood 140 mg/dL (75-99)
[2020-09-17 20:28] LABS: Hepatitis A Antibody IgM Non-Reactive (Non-Reactive); Hepatitis B Core IgM Non-Reactive (Non-Reactive); Hepatitis B Surface Antigen Non-Reactive (Non-Reactive); Hepatitis C IgG Antibody Non-Reactive (Non-Reactive)
[2020-09-17] MEDS ORDERED: ATORVASTATIN 40 MG TAB PO SCH (21:00)
[2020-09-17] MEDS: LOSARTAN 25 MG TAB PO SCH (21:42)
[2020-09-17] MEDS: ATORVASTATIN 80 MG TAB PO SCH (21:42)
[2020-09-17] MEDS: ASPIRIN 81 MG PO SCH (21:43)
[2020-09-17 21:47] LABS: Hemoglobin A1C 6.6 % (4.0-6.0)
[2020-09-17] MEDS: MUPIROCIN 2% OINT 22 GM TUBE NASAL SCH (22:33)
[2020-09-18] MEDS: NITROGLYCERIN OINT 1 INCH/GM PACKET TOPICAL SCH ×3 (00:10→16:15)
[2020-09-18 06:23] LABS: Glucose,Whole Blood 123 mg/dL (75-99)
[2020-09-18] MEDS: INSULIN ASPART (NovoLOG) 100 UNIT/ML VIAL SQ SCH ×4 (07:08→21:07)
[2020-09-18] MEDS: METOPROLOL TARTRATE 25 MG TAB PO SCH ×2 (08:37→20:51)
[2020-09-18] MEDS: HEPARIN SOD,PORK IN 0.45% NACL 25,000 UNIT in 0.45% NACL 1 250ML.BAG IV SCH (08:38)
[2020-09-18 08:48] LABS: Basophils % (A) 0 %; Eosinophils # (A) 0.3 k/uL (0-0.7); Eosinophils % (A) 4 %; HCT 41.2 % (39.0-53.0); HGB 13.8 gm/dL (13.0-17.5); Lymphocytes # (A) 1.3 k/uL (1.0-4.8); Lymphocytes % (A) 18 %; MCH 31.5 pg (25.0-35.0); MCHC 33.6 g/dL (31.0-37.0); MCV 93.8 fL (80.0-100.0); Mean Platelet Volume 8.4; Monocytes # (A) 0.3 k/uL (0-1.0); Monocytes % (A) 4 %; Neutrophils # (A) 5.4 k/uL (1.3-7.7); Neutrophils % (A) 73 %; Platelet Count 122 k/uL (150-450); RBC 4.39 m/uL (4.30-5.90); RDW 13.1 % (11.5-15.5); WBC 7.5 k/uL (3.8-10.6)
--- NOTE | 2020-09-18 08:56 | P.PN ---
Subjective Progress Note Date: 09/18/20 Principal diagnosis: Symptomatic multivessel coronary artery disease, non-ST elevated myocardial infarction this admission, new-onset atrial fibrillation with RVR. Past medical history significant for hypertension, diabetes mellitus type 2, COPD with a preoperative FEV1 of 54% of predicted value, chronic ongoing tobacco abuse, history of hiatal hernia and history of sleep apnea. The patient was seen in follow-up today on 09/18/2020 at his bedside on the cardiac stepdown unit. He is laying in bed, he is awake, alert and oriented 3 and is in no acute apparent distress. He denies any further complaints of chest pain or shortness of breath at this time and reports his last episode of chest pain was yesterday while trying to ambulate to the bathroom. He remains on a he seamus drip per protocol. Oxygen saturations are 97% on 3 L nasal cannula and he is achieving 2000 to 3000 mL on his incentive spirometry. Preoperative teaching has been reinforced with the patient and his questions were answered to the best of my ability. A 5 m walk test was not completed due to his episodes of chest pain with activity. His STS risk score was calculated and discussed with the patient by Dr. Márquez. Objective - Vital Signs Vital signs: Vital Signs Temp 98.1 F 09/18/20 04:00 Pulse 65 09/18/20 04:00 Resp 17 09/18/20 04:00 BP 126/64 09/18/20 04:00 Pulse Ox 97 09/18/20 04:00 Intake & Output 09/17/20 09/18/20 09/18/20 18:59 06:59 18:59 Intake Total 540 165.488 Output Total 1000 Balance 540 -834.512 Weight 114.759 kg Intake: IV 300 Sodium Chloride 0.9% 1, 300 000 ml @ 75 mls/hr IV . [id number] [facility] Rx#:[id number] Intake, IV Titration 165.488 Amount Heparin Sod,Pork in 0.45% 165.488 NaCl 25,000 unit In 0.45 % NaCl 1 250ml.bag @ 8.71 UNITS/KG/HR 9.996 mls/hr IV .Q24H [facility] Rx#: [id number] Oral 240 Output: Urine 1000 Other: Voiding Method Urinal # Voids 1 - Constitutional General appearance: Present: cooperative, no acute distress, obese - EENT Eyes: Present: normal appearance. Absent: scleral icterus ENT: Present: hearing grossly normal - Neck Details: Neck is supple, no JVD, no lymphadenopathy. - Respiratory Details: Lung sounds with few scattered expiratory wheezes and a few scattered crackles to his bilateral bases. No rhonchi. Respirations are symmetrical and nonlabored. Oxygen saturation 97% on 3 L nasal cannula. Achieving 7443-0794 mL on his incentive spirometry. FEV1 showed a predicted value of 54%. - Cardiovascular Details: Regular rhythm and rate. S1 and S2 present, negative for S3, gallop or murmur. No edema present. Knee-high sequential compression devices in place to his bilateral lower extremities. - Gastrointestinal Gastrointestinal Comment(s): Abdomen is soft, nontender and nondistended. Active bowel sounds present in all 4 abdominal quadrants. No guarding or rigidity. No organomegaly appreciated. Tolerating oral intake. - Genitourinary Genitourinary Comment(s): Continues to void. - Integumentary Integumentary Comment(s): Skin is warm and dry. No clubbing or cyanosis is present. No rash or abnormal pigmentation is present. - Neurologic Neurologic Comment(s): No focal or neurological deficits. Neurologic: Present: CNII-XII intact - Musculoskeletal Musculoskeletal: Present: strength equal bilaterally - Psychiatric Psychiatric: Present: A&O x's 3, appropriate affect, intact judgment & insight - Allied health notes Allied health notes reviewed: nursing - Labs CBC & Chem 7: 09/17/20 12:00 09/17/20 12:00 Labs: Abnormal Lab Results - Last 24 Hours (Table) 09/17/20 09/17/20 09/17/20 Range/Units 12:00 12:00 12:00 Plt Count 137 L (150-450) k/uL APTT 19.4 L (22.0-30.0) sec Chloride 109 H (98-107) mmol/L Glucose 104 H (74-99) mg/dL POC Glucose (mg/dL) (75-99) mg/dL Hemoglobin A1c (4.0-6.0) % Ur Specific [place] (1.001-1.035) Urine Blood (Negative) Urine Mucus (None) /hpf Crossmatch 09/17/20 09/17/20 09/17/20 Range/Units 12:00 12:53 13:42 Plt Count (150-450) k/uL APTT (22.0-30.0) sec Chloride (98-107) mmol/L Glucose (74-99) mg/dL POC Glucose (mg/dL) (75-99) mg/dL Hemoglobin A1c 6.6 H (4.0-6.0) % Ur Specific [place] >1.050 H (1.001-1.035) Urine Blood Trace H (Negative) Urine Mucus Rare H (None) /hpf Crossmatch See Detail 09/17/20 09/17/20 09/17/20 Range/Units 16:41 19:31 20:23 Plt Count (150-450) k/uL APTT 33.8 H (22.0-30.0) sec Chloride (98-107) mmol/L Glucose (74-99) mg/dL POC Glucose (mg/dL) 118 H 140 H (75-99) mg/dL Hemoglobin A1c (4.0-6.0) % Ur Specific [place] (1.001-1.035) Urine Blood (Negative) Urine Mucus (None) /hpf Crossmatch 09/18/20 09/18/20 Range/Units 02:17 06:22 Plt Count (150-450) k/uL APTT 68.5 H (22.0-30.0) sec Chloride (98-107) mmol/L Glucose (74-99) mg/dL POC Glucose (mg/dL) 123 H (75-99) mg/dL Hemoglobin A1c (4.0-6.0) % Ur Specific [place] (1.001-1.035) Urine Blood (Negative) Urine Mucus (None) /hpf Crossmatch Microbiology - Last 24 Hours (Table) 09/17/20 08:55 Nasal Screen MRSA/MSSA - Preliminary Nasal Swab - Imaging and Cardiology Carotid duplex studies, vein mapping and [facility] DEL[facility] results reviewed. Assessment and Plan Assessment: 1. Symptomatic multivessel coronary artery disease 2. Non-ST elevated myocardial infarction this admission 3. New onset atrial fibrillation with RVR 4. History of hypertension 5. Diabetes mellitus type 2 6. Chronic ongoing tobacco abuse 7. History of hiatal hernia 8. History of sleep apnea 9. COPD with a preoperative FEV1 54% of predicted value Plan: 1. Continue to optimize medical management with aspirin, statin and beta randy. 2. Nothing by mouth after midnight as the patient is scheduled for myocardial revascularization surgery tomorrow 09/19/2020 to be performed by Dr. Harjeet Roca. 3. Continue preoperative teaching. 4. The importance of smoking cessation has been discussed with the patient. 5. Medical management and other comorbidities per primary care service. 6. GI and DVT prophylaxis. 7. STS risk or has been calculated in discussed with the patient by Dr. Jovanni Márquez. 8. Encourage use of his incentive spirometry 10 times every hour while awake. 9. Discontinue heparin drip at 6 AM on 09/19/2020. 10. More recommendations to follow based on patient's clinical course. Time with Patient: Greater than 30
[2020-09-18] MEDS ORDERED: bisacodyL 5 MG TABLET.DR PO PRN (09:13)
[2020-09-18 09:16] LABS: African American GFR (CKD) >90 (>60 ml/min/1.73 sqM); Anion Gap 6 mmol/L; Blood Urea Nitrogen 15 mg/dL (9-20); Calcium 8.7 mg/dL (8.4-10.2); Carbon Dioxide 25 mmol/L (22-30); Chloride 108 mmol/L (98-107); Glucose 204 mg/dL (74-99); Non-African American GFR(CKD) 83 (>60 ml/min/1.73 sqM); Potassium 4.3 mmol/L (3.5-5.1); Sodium 139 mmol/L (137-145)
--- NOTE | 2020-09-18 10:16 | P.PN ---
Subjective Progress Note Date: 09/18/20 This is a pleasant 70-year-old gentleman with documented history of hypertension, hyperlipidemia, diabetes, nicotine dependence, who presented to the hospital with chest discomfort. He ruled in for non-Q-wave myocardial infarction, was taken to the cardiac catheterization lab by Dr. Gilmore, revealed calcified coronary arteries, chronically occluded RCA with collaterals from the left system, critical stenosis in the proximal LAD in the long segment, mild disease in the circumflex, mildly impaired left ventricular systolic function. Patient has been seen by cardiothoracic surgery and is scheduled to undergo coronary artery bypass grafting surgery on Sunday. Late yesterday afternoon patient did have an episode of chest discomfort while walking to the bathroom. He did have one also earlier in the day. He's been instructed to not be up ambulating in the room, using the urinal at bedside. At the time of my examination today, he denies any chest discomfort and is breathing overall is stable. Echocardiogram with Doppler study was performed which revealed an ejection fraction of 45-50%. Basal inferior and basal inferior septal wall is hypokinetic. Blood pressure this morning 126/60 with a heart rate in the 60s, 97% on 3 L of oxygen. Sodium 139, potassium 4.3, BUN 15, creatinine 0.9, white blood cell count 7.5, hemoglobin 13.8, platelet count 122. Patient is currently on IV heparin drip. Objective - Vital Signs Vital signs: Vital Signs Temp 98.1 F 09/18/20 04:00 Pulse 65 09/18/20 04:00 Resp 17 09/18/20 04:00 BP 126/64 09/18/20 04:00 Pulse Ox 97 09/18/20 04:00 Intake & Output 09/17/20 09/18/20 09/18/20 18:59 06:59 18:59 Intake Total 540 165.488 59.429 Output Total 1000 Balance 540 -834.512 59.429 Weight 114.759 kg Intake: IV 300 Sodium Chloride 0.9% 1, 300 000 ml @ 75 mls/hr IV . [id number] [facility] Rx#:[id number] Intake, IV Titration 165.488 59.429 Amount Heparin Sod,Pork in 0.45% 165.488 59.429 NaCl 25,000 unit In 0.45 % NaCl 1 250ml.bag @ 8.71 UNITS/KG/HR 9.996 mls/hr IV .Q24H [facility] Rx#: [id number] Oral 240 Output: Urine 1000 Other: Voiding Method Urinal # Voids 1 - Exam PHYSICAL EXAMINATION: GENERAL: 70-year-old gentleman in no acute distress at the time of my examination HEENT: Head is atraumatic, normocephalic. Pupils equal, round. Sclera anicteric. Conjunctiva are clear. Mucous membranes of the mouth are moist. Neck is supple. There is no elevated jugular venous pressure. No carotid bruit is heard. HEART EXAMINATION: Heart S1, S2 normal. No murmur or gallop heard.] CHEST EXAMINATION:Lungs are clear to auscultation and precussion. No chest wall tenderness is noted on palpation or with deep breathing. ABDOMEN: [Soft, nontender. Bowel sounds are heard. No organomegaly noted] EXTREMITIES:[2+ peripheral pulses with no evidence of peripheral edema and no calf tenderness noted] NEUROLOGIC [atient is awake, alert and oriented 3. . - Labs CBC & Chem 7: 09/18/20 08:26 09/18/20 06:26 Labs: Abnormal Lab Results - Last 24 Hours (Table) 09/17/20 09/17/20 09/17/20 Range/Units 12:00 12:00 12:00 Plt Count 137 L (150-450) k/uL APTT 19.4 L (22.0-30.0) sec Chloride 109 H (98-107) mmol/L Glucose 104 H (74-99) mg/dL POC Glucose (mg/dL) (75-99) mg/dL Hemoglobin A1c (4.0-6.0) % Troponin I (0.000-0.034) ng/mL Ur Specific [place] (1.001-1.035) Urine Blood (Negative) Urine Mucus (None) /hpf Crossmatch 09/17/20 09/17/20 09/17/20 Range/Units 12:00 12:53 13:42 Plt Count (150-450) k/uL APTT (22.0-30.0) sec Chloride (98-107) mmol/L Glucose (74-99) mg/dL POC Glucose (mg/dL) (75-99) mg/dL Hemoglobin A1c 6.6 H (4.0-6.0) % Troponin I (0.000-0.034) ng/mL Ur Specific [place] >1.050 H (1.001-1.035) Urine Blood Trace H (Negative) Urine Mucus Rare H (None) /hpf Crossmatch See Detail 09/17/20 09/17/20 09/17/20 Range/Units 16:41 19:31 20:23 Plt Count (150-450) k/uL APTT 33.8 H (22.0-30.0) sec Chloride (98-107) mmol/L Glucose (74-99) mg/dL POC Glucose (mg/dL) 118 H 140 H (75-99) mg/dL Hemoglobin A1c (4.0-6.0) % Troponin I (0.000-0.034) ng/mL Ur Specific [place] (1.001-1.035) Urine Blood (Negative) Urine Mucus (None) /hpf Crossmatch 09/18/20 09/18/20 09/18/20 Range/Units 02:17 06:22 06:26 Plt Count (150-450) k/uL APTT 68.5 H (22.0-30.0) sec Chloride 108 H (98-107) mmol/L Glucose 204 H (74-99) mg/dL POC Glucose (mg/dL) 123 H (75-99) mg/dL Hemoglobin A1c (4.0-6.0) % Troponin I (0.000-0.034) ng/mL Ur Specific [place] (1.001-1.035) Urine Blood (Negative) Urine Mucus (None) /hpf Crossmatch 09/18/20 09/18/20 09/18/20 Range/Units 08:26 08:26 08:26 Plt Count 122 L (150-450) k/uL APTT 45.8 H (22.0-30.0) sec Chloride (98-107) mmol/L Glucose (74-99) mg/dL POC Glucose (mg/dL) (75-99) mg/dL Hemoglobin A1c (4.0-6.0) % Troponin I 1.460 H* (0.000-0.034) ng/mL Ur Specific [place] (1.001-1.035) Urine Blood (Negative) Urine Mucus (None) /hpf Crossmatch Microbiology - Last 24 Hours (Table) 09/17/20 08:55 Nasal Screen MRSA/MSSA - Preliminary Nasal Swab Assessment and Plan Plan: Assessment and plan #1 non-ST elevation myocardial infarction #2 symptomatic multivessel coronary artery disease, awaiting bypass surgery #3 hyperlipidemia #4 hypertension #5 diabetes #6 nicotine dependence #7 sleep apnea #8 COPD #9 hiatal hernia Plan We will continue baby aspirin along with IV heparin, statin, metoprolol, losartan. He's been instructed to stay in bed, other than thing the urinal at the bedside. Scheduled for coronary artery bypass grafting surgery tomorrow. DNP note has been reviewed, I agree with a documented findings and plan of care. Patient was seen and examined.
[2020-09-18 11:56] LABS: Glucose,Whole Blood 97 mg/dL (75-99)
[2020-09-18] MEDS: MUPIROCIN 2% OINT 22 GM TUBE NASAL SCH ×2 (14:23→20:51)
--- NOTE | 2020-09-18 16:32 | PN ---
PROGRESS NOTE PULMONARY/CRITICAL CARE PROGRESS NOTE: DATE OF SERVICE: September 18, 2020 HISTORY: This is a 70-year-old gentleman who we saw in consultation yesterday. The patient had recent catheterization showing significant coronary disease. He was also found to have hypertension, non ST-segment elevation myocardial infarction, atrial fibrillation, diabetes, and likely, some underlying COPD from heavy tobacco use. The patient was started on albuterol inhaler, and also was given his home inhaler, which was Trelegy , which is a combination of long-acting muscarinic antagonist, long-acting beta agonist, and inhaled corticosteroids. The patient's surgery has been moved up to Sunday. He was moved from the floor to the ICU. PHYSICAL EXAMINATION: VITAL SIGNS: Current vital signs are reviewed. Temperature 98.5. Heart rate 60, respiratory rate 18, blood pressure 122/72, mean 88, saturations are 95% on 3 L. GENERAL: Appears in no acute distress. HEENT: Examination is grossly unremarkable. NECK: Supple. Full range of motion. No adenopathy. Neck veins are flat. CARDIOVASCULAR: Examination reveals regular rhythm and rate. S1, S2 normal. LUNGS: Reveal some mild expiratory wheezes. No rhonchi and crackles. Breath sounds equal. ABDOMEN: Soft. Bowel sounds are heard. EXTREMITIES are intact. No cyanosis, clubbing, or edema. SKIN: Without rash. NEUROLOGIC: Examination is brief but nonfocal. LABORATORY DATA: White count 7.5, hemoglobin 13.8, hematocrit 1.2, platelet count 122,000. PTT 45.8. Sodium 139, potassium 4.3, chloride 108, CO2 25, anion gap is 6. BUN and creatinine were 15 and 0.94. Most recent troponin was 1.460. COVID testing was negative. Microbiology is negative. No recent x-rays to report. ASSESSMENT: 1. Status post recent catheterization showing coronary artery disease, with anticipated bypass grafting tomorrow. 2. Non ST-segment elevation myocardial infarction. 3. History of essential hypertension. 4. Atrial fibrillation. 5. Recent diagnosis of diabetes mellitus. 6. Longstanding history of tobacco use, with probable underlying chronic obstructive pulmonary disease. PLAN: The patient is cleared for surgery from our perspective. Additional recommendations and suggestions are forthcoming. Prognosis is guarded. After surgery, we will make sure he gets on appropriate inhalers and medications. MMODL / IJN: [id number] /
[2020-09-18 17:12] LABS: Glucose,Whole Blood 124 mg/dL (75-99)
--- NOTE | 2020-09-18 19:23 | P.PN ---
Subjective Progress Note Date: 09/18/20 (delayed charting seen at 1030) Principal diagnosis: chest pain Patient is a 70-year-old male with a history of tobacco abuse, hypertension, prediabetes, and COPD who presented to the emergency department with complaints of chest pain. On arrival via EMS he received 2 nitroglycerin and aspirin and had a improvement in his chest pain. In the emergency department he underwent an extensive evaluation. Initial vital signs showed a heart rate of 134 and a blood pressure 42/87. Initial laboratory analysis demonstrated an elevated troponin at 0.086. He was admitted for further management of his new onset atrial fibrillation with rapid ventricular response and non-ST segment elevated myocardial infarction. He was placed on nitro for pain and blood pressure contr ol, Cardizem drip, and a heparin drip. His aspirin was continued. He was also started on a statin. His metformin was held and started on sliding scale insulin. Overnight he converted to normal sinus rhythm and his Cardizem drip was discontinued. His troponin continued to rise to a max of 5.7. He was therefore urgently taken to cardiac catheterization which demonstrated calcified coronary arteries, chronically occluded right coronary artery with collaterals from the left, and critical stenosis in the LAD and a long segment. It was determined that he likely would need cardiac bypass. Echo with EF 45-50%, Carotid dopplers negative for ischemia, Proximal abdominal aortic aneurysm 3.0 cm. Plan is for CABG. Patient seen and examined at bedside and extended stay. No chest pain, no nausea , no shortness of breath. Discussed A1C results. General: non toxic, no distress, appears at stated age Derm: warm, dry Head: atraumatic, normocephalic, symmetric Eyes: EOMI, no lid lag, anicteric sclera Mouth: no lip lesion, mucus membranes moist Cardiovascular: S1S2 reg, no murmur, positive posterior tibial pulse bilateral, Lungs: CTA bilateral , no accessory muscle use Abdominal: soft, nontender to palpation, no guarding, no appreciable organomegaly Ext: no gross muscle atrophy, no edema, no contractures Neuro: CN II-XI grossly intact, no focal neuro deficits Psych: Alert, oriented, appropriate affect Non-ST segment elevated myocardial infarction with LAD disease in the setting of diabetes, systolic cardiomyopathy with ejection fraction 40% -Cardiothoracic and cardiology recommendations -Plan is for cardiac bypass surgery 09/19 -Carotid Dopplers normal -Aspirin, statin, heaprin -Cozaar, Lopressor - strict I and O, monitor fluid closely. Diabetes mellitus type 2 with hyperglycemia -Stop metformin -Sliding-scale insulin -Follow blood sugars - A1c 6.6 Thrombocytopenia - mild - follow CBC - doubt HIT New-onset atrial fibrillation with rapid ventricular response, -Now in normal sinus rhythm -Off heparin drip and Cardizem -Follow telemetry Abdominal aortic aneurysm 3 cm -Continue outpatient follow-up Hypertension, controlled -Continue with Cozaar and beta randy -Follow blood pressures Obesity with BMI 31.6 -Outpatient structured weight loss Tobacco abuse -Cessation -Nicotine replacement if needed we'll attempt to avoid DVT prophylaxis: heparin gtt Discussed with: Patient,nursing Anticipated discharge: 7-[address]: Home A total of 35 minutes was spent on the care of this complex patient more than 50% of the time was spent in counseling and care coordination. Objective - Vital Signs Vital signs: Vital Signs Temp 97.7 F 09/18/20 16:21 Pulse 73 09/18/20 19:00 Resp 18 09/18/20 19:00 BP 128/69 09/18/20 19:00 Pulse Ox 94 L 09/18/20 19:00 Intake & Output 09/18/20 09/18/20 09/19/20 06:59 18:59 06:59 Intake Total 165.488 359.429 220 Output Total 1000 700 Balance -834.512 -340.571 220 Intake: IV 60 20 0.9 Sodium Chloride 60 20 Carrier Intake, IV Titration 165.488 59.429 Amount Heparin Sod,Pork in 0.45% 165.488 59.429 NaCl 25,000 unit In 0.45 % NaCl 1 250ml.bag @ 8.71 UNITS/KG/HR 9.996 mls/hr IV .Q24H [facility] Rx#: [id number] Oral 240 200 Output: Urine 1000 700 Other: Voiding Method Urinal Bedside Commode # Voids 1 - Labs CBC & Chem 7: 09/18/20 08:26 09/18/20 06:26 Labs: Abnormal Lab Results - Last 24 Hours (Table) 09/17/20 09/17/20 09/17/20 Range/Units 12:00 19:31 20:23 Plt Count (150-450) k/uL APTT 33.8 H (22.0-30.0) sec Chloride (98-107) mmol/L Glucose (74-99) mg/dL POC Glucose (mg/dL) 140 H (75-99) mg/dL Hemoglobin A1c 6.6 H (4.0-6.0) % Troponin I (0.000-0.034) ng/mL Crossmatch 09/18/20 09/18/20 09/18/20 Range/Units 02:17 06:22 06:26 Plt Count (150-450) k/uL APTT 68.5 H (22.0-30.0) sec Chloride 108 H (98-107) mmol/L Glucose 204 H (74-99) mg/dL POC Glucose (mg/dL) 123 H (75-99) mg/dL Hemoglobin A1c (4.0-6.0) % Troponin I (0.000-0.034) ng/mL Crossmatch 09/18/20 09/18/20 09/18/20 Range/Units 08:26 08:26 08:26 Plt Count 122 L (150-450) k/uL APTT (22.0-30.0) sec Chloride (98-107) mmol/L Glucose (74-99) mg/dL POC Glucose (mg/dL) (75-99) mg/dL Hemoglobin A1c (4.0-6.0) % Troponin I 1.460 H* (0.000-0.034) ng/mL Crossmatch See Detail 09/18/20 09/18/20 Range/Units 08:26 17:09 Plt Count (150-450) k/uL APTT 45.8 H (22.0-30.0) sec Chloride (98-107) mmol/L Glucose (74-99) mg/dL POC Glucose (mg/dL) 124 H (75-99) mg/dL Hemoglobin A1c (4.0-6.0) % Troponin I (0.000-0.034) ng/mL Crossmatch Microbiology - Last 24 Hours (Table) 09/17/20 08:55 Nasal Screen MRSA/MSSA - Preliminary Nasal Swab
[2020-09-18] MEDS: ASPIRIN 81 MG PO SCH (20:51)
[2020-09-18] MEDS: ATORVASTATIN 80 MG TAB PO SCH (20:51)
[2020-09-18 21:01] LABS: Glucose,Whole Blood 117 mg/dL (75-99)
[2020-09-18] MEDS: LOSARTAN 25 MG TAB PO SCH (21:37)
[2020-09-19] MEDS: NITROGLYCERIN OINT 1 INCH/GM PACKET TOPICAL SCH (00:19)
[2020-09-19 04:05] LABS: Basophils % (A) 0 %; Eosinophils # (A) 0.3 k/uL (0-0.7); Eosinophils % (A) 4 %; HCT 40.4 % (39.0-53.0); HGB 13.2 gm/dL (13.0-17.5); Lymphocytes # (A) 1.6 k/uL (1.0-4.8); Lymphocytes % (A) 24 %; MCH 30.5 pg (25.0-35.0); MCHC 32.7 g/dL (31.0-37.0); MCV 93.2 fL (80.0-100.0); Mean Platelet Volume 8.8; Monocytes # (A) 0.5 k/uL (0-1.0); Monocytes % (A) 7 %; Neutrophils # (A) 4.3 k/uL (1.3-7.7); Neutrophils % (A) 63 %; Platelet Count 136 k/uL (150-450); RBC 4.33 m/uL (4.30-5.90); RDW 13.1 % (11.5-15.5); WBC 6.9 k/uL (3.8-10.6)
[2020-09-19] MEDS ORDERED: MANNITOL 25% 12.5 GM/50 ML VIAL IV ONE ×2 (05:00→06:00)
[2020-09-19] MEDS ORDERED: METOPROLOL TARTRATE 12.5 MG TAB PO ONE (05:00)
[2020-09-19] MEDS ORDERED: PROTAMINE SULFATE 250 MG in EMPTY BAG 1 BAG IV ONE (05:00)
[2020-09-19] MEDS ORDERED: NITROGLYCERIN-D5W PMX 25 MG/250 ML BTL IV ONE (05:00)
[2020-09-19] MEDS ORDERED: LACTATED RINGERS 1,000 ML IV SCH (05:00)
[2020-09-19] MEDS ORDERED: ATORVASTATIN 10 MG TAB PO ONE (05:00)
[2020-09-19] MEDS ORDERED: HEPARIN SODIUM 1,000 UN/ML (10ML VL) IV ONE (05:00)
[2020-09-19] MEDS ORDERED: ASPIRIN 325 MG TAB PO ONE (05:00)
[2020-09-19] MEDS ORDERED: ALBUMIN HUMAN 5% 500 ML in EMPTY BAG 1 BAG IVPB ONE ×6 (05:00)
[2020-09-19] MEDS ORDERED: ALBUMIN HUMAN 25% 50 ML in EMPTY BAG 1 BAG IVPB ONE (05:00)
[2020-09-19 05:50] LABS: African American GFR (CKD) >90 (>60 ml/min/1.73 sqM); Anion Gap 3 mmol/L; Blood Urea Nitrogen 16 mg/dL (9-20); Calcium 8.7 mg/dL (8.4-10.2); Carbon Dioxide 27 mmol/L (22-30); Chloride 109 mmol/L (98-107); Glucose 120 mg/dL (74-99); Non-African American GFR(CKD) 89 (>60 ml/min/1.73 sqM); Potassium 4.4 mmol/L (3.5-5.1); Sodium 139 mmol/L (137-145)
[2020-09-19] MEDS ORDERED: INSULIN REGULAR 100 UNIT in SODIUM CHLORIDE 0.9% 100 ML IV SCH (06:00)
[2020-09-19] MEDS ORDERED: NITROGLYCERIN-D5W PMX 50 MG in DEXTROSE/WATER 1 250ML.BAG IV SCH ×2 (06:00→13:33)
[2020-09-19] MEDS ORDERED: DEXTROSE 5% IN WATER 1,000 ML with POTASSIUM CHLORIDE 25 MEQ, SODIUM CHLORIDE 2.5MEQ/ML... IV SCH ×6 (06:00)
[2020-09-19] MEDS ORDERED: SODIUM BICARB 8.4% 50 ML SYR (1 MEQ/ML) IV ONE (06:00)
[2020-09-19] MEDS ORDERED: NOREPINEPHRINE 4 MG in SODIUM CHLORIDE 0.9% 250 ML IV SCH (06:00)
[2020-09-19] MEDS ORDERED: TRANEXAMIC ACID 2,000 MG in SODIUM CHLORIDE 0.9% 80 ML IV ONE (06:00)
[2020-09-19] MEDS ORDERED: PHENYLEPHRINE 10 MG/ML VIAL IV ONE (06:00)
[2020-09-19] MEDS ORDERED: PROTAMINE SULFATE 10 MG/ML 25 ML VIAL IV ONE (06:00)
[2020-09-19] MEDS ORDERED: HEPARIN SODIUM,PORCINE 5,000 UNIT in SODIUM CHLORIDE 0.9% 500 ML 500 ML IV ONE (06:00)
[2020-09-19] MEDS ORDERED: PHENYLEPHRINE 40 MG in SODIUM CHLORIDE 0.9% 250 ML IV ONE (06:00)
[2020-09-19] MEDS ORDERED: MAGNESIUM SULFATE SYG 4.06 MEQ/ML SYRINGE IV ONE (06:00)
[2020-09-19] MEDS ORDERED: DILTIAZEM 125 MG in SODIUM CHLORIDE 0.9% 100 ML IV SCH ×3 (06:00→13:33)
[2020-09-19] MEDS ORDERED: DEXTROSE 5% IN WATER 1,000 ML with POTASSIUM CHLORIDE 110 MEQ, MAGNESIUM SULFATE 16 MEQ... IV SCH ×5 (06:00)
[2020-09-19] MEDS ORDERED: CLEVIDIPINE BUTYRATE 25 MG in EMPTY BAG 1 BAG IV SCH ×2 (06:00→13:33)
[2020-09-19] MEDS ORDERED: ceFAZolin 2 GM in SODIUM CHLORIDE 0.9% 30 ML IVPB ONE (06:00)
[2020-09-19] MEDS ORDERED: ceFAZolin 2,000 MG in SODIUM CHLORIDE 0.9% 30 ML IVPB ONE (06:00)
[2020-09-19] MEDS ORDERED: CALCIUM CHLORIDE 100 MG/ML 10 ML SYRINGE IVP ONE (06:00)
[2020-09-19] MEDS ORDERED: CHLORHEXIDINE GLUCONATE 15 ML CUP MUCOUS MEM ONE (06:00)
[2020-09-19] MEDS ORDERED: PAPAVERINE 360 MG in SODIUM CHLORIDE 0.9% 90 ML IV ONE (06:00)
[2020-09-19 08:52] LABS: ABG Base Excess 1.8 mmol/L; ABG Glucose Whole Blood 103 mg/dL (75-99); ABG HCO3 28 mmol/L (21-25); ABG Hematocrit 38 % (34.0-46.0); ABG Ionized Calcium 4.7 mg/dL (4.5-5.3); ABG Lactic Acid Whole Blood 0.9 mmol/L (0.5-1.6); ABG Oxygen Saturation 99.9 % (94-97); ABG PCO2 49 mmHg (35-45); ABG PH 7.36 (7.35-7.45); ABG PO2 411 mmHg (83-108); ABG Potassium Whole Blood 4.1 mmol/L (3.4-4.5); ABG Sodium Whole Blood 141 mmol/L (135-146); ABG TCO2 29 mmol/L (19-24)
--- NOTE | 2020-09-19 09:35 | P.ANPRN ---
Procedure Note - Anesthesia - Invasive Line Right Central Line Time Out Performed: Yes (733) Date of Procedure: 09/19/20 Time of Procedure: 07:34 Location of Patient: Phase I Preparation: Sterile Prep, Sterile Dressing Arterial Line Location: Radial Ultrasound Used: Yes Purpose - Visualization and Identification of Vasculature: Yes Needle Guage: 18g angio Image Stored and Saved: Yes Narrative: Central line placement per sterile protocol utilized. Right neck prepped and drapped. Sterile Protocol. +local + angio +cvp +jwire +uneventful dilation and introduction right IJ Cordis Right Lamont Colt Time Out Performed: Yes (733) Date of Procedure: 09/19/20 Time of Procedure: 07:51 Location of Patient: Phase I Preparation: Sterile Prep, Sterile Dressing Arterial Line Location: Radial Ultrasound Used: No Purpose - Visualization and Identification of Vasculature: No Image Stored and Saved: No Narrative: Central line placement per sterile protocol utilized. Lamont floated in one attempt to pa 47cm. No wedge. Balloon down.
[2020-09-19 10:30] LABS: ABG Base Excess 1.1 mmol/L; ABG Glucose Whole Blood 134 mg/dL (75-99); ABG HCO3 27 mmol/L (21-25); ABG Hematocrit 37 % (34.0-46.0); ABG Ionized Calcium 4.7 mg/dL (4.5-5.3); ABG Oxygen Saturation 97.5 % (94-97); ABG PCO2 49 mmHg (35-45); ABG PH 7.35 (7.35-7.45); ABG PO2 95 mmHg (83-108); ABG Potassium Whole Blood 4.4 mmol/L (3.4-4.5); ABG Sodium Whole Blood 140 mmol/L (135-146); ABG TCO2 29 mmol/L (19-24)
[2020-09-19 11:19] LABS: ABG Base Excess 0.1 mmol/L; ABG Glucose Whole Blood 179 mg/dL (75-99); ABG HCO3 25 mmol/L (21-25); ABG Hematocrit 30 % (34.0-46.0); ABG Ionized Calcium 4.1 mg/dL (4.5-5.3); ABG Lactic Acid Whole Blood 1.3 mmol/L (0.5-1.6); ABG Oxygen Saturation 99.9 % (94-97); ABG PCO2 42 mmHg (35-45); ABG PH 7.39 (7.35-7.45); ABG PO2 325 mmHg (83-108); ABG Potassium Whole Blood 4.8 mmol/L (3.4-4.5); ABG Sodium Whole Blood 135 mmol/L (135-146); ABG TCO2 26 mmol/L (19-24)
[2020-09-19 11:56] LABS: ABG Glucose Whole Blood 170 mg/dL (75-99); ABG HCO3 25 mmol/L (21-25); ABG Hematocrit 32 % (34.0-46.0); ABG Ionized Calcium 4.3 mg/dL (4.5-5.3); ABG Lactic Acid Whole Blood 1.7 mmol/L (0.5-1.6); ABG Oxygen Saturation 99.9 % (94-97); ABG PCO2 43 mmHg (35-45); ABG PH 7.38 (7.35-7.45); ABG PO2 328 mmHg (83-108); ABG Potassium Whole Blood 4.9 mmol/L (3.4-4.5); ABG Sodium Whole Blood 137 mmol/L (135-146); ABG TCO2 27 mmol/L (19-24)
[2020-09-19 13:19] LABS: ABG Base Excess 0.2 mmol/L; ABG Glucose Whole Blood 136 mg/dL (75-99); ABG HCO3 25 mmol/L (21-25); ABG Hematocrit 32 % (34.0-46.0); ABG Ionized Calcium 4.3 mg/dL (4.5-5.3); ABG Lactic Acid Whole Blood 1.9 mmol/L (0.5-1.6); ABG PCO2 40 mmHg (35-45); ABG PH 7.41 (7.35-7.45); ABG Potassium Whole Blood 4.3 mmol/L (3.4-4.5); ABG Sodium Whole Blood 140 mmol/L (135-146); ABG TCO2 26 mmol/L (19-24)
[2020-09-19] MEDS ORDERED: Magnesium Replacement Protocol 1 EACH MISC MISCELLANE PRN (13:33)
[2020-09-19] MEDS ORDERED: METOCLOPRAMIDE 5 MG/ML 2 ML VIAL IVP PRN (13:33)
[2020-09-19] MEDS ORDERED: AMIODARONE 360 MG in DEXTROSE 5% IN WATER 200 ML IV PRN ×2 (13:33)
[2020-09-19] MEDS ORDERED: hydrALAZINE HCL 20 MG/ML 1 ML VIAL IVP PRN (13:33)
[2020-09-19] MEDS ORDERED: ONDANSETRON 4 MG/2 ML VIAL IVP PRN (13:33)
[2020-09-19] MEDS ORDERED: IPRATROPIUM-ALBUTEROL 3 ML NEB INHALATION PRN (13:33)
[2020-09-19] MEDS ORDERED: Phosphorus Replacement Protoco 1 EACH MISC MISCELLANE PRN (13:33)
[2020-09-19] MEDS ORDERED: DEXMEDETOMIDINE/0.9% NACL(PMX) 400 MCG in EMPTY BAG 1 BAG IV SCH (13:33)
[2020-09-19] MEDS ORDERED: BENZOCAINE/MENTHOL LOZENG 1 EACH LOZENGE MUCOUS MEM PRN (13:33)
[2020-09-19] MEDS ORDERED: Potassium Replacement Protocol 1 EACH MISC MISCELLANE PRN (13:33)
[2020-09-19 13:38] LABS: ABG PO2 >420 mmHg (83-108)
[2020-09-19 13:55] LABS: Glucose,Whole Blood 130 mg/dL (75-99)
[2020-09-19] MEDS: ALBUMIN HUMAN 5% 250 ML in EMPTY BAG 1 BAG IVPB PRN (13:58)
[2020-09-19] MEDS: LACTATED RINGERS 1,000 ML IV SCH (14:00)
[2020-09-19 14:17] LABS: Basophils % (A) 0 %; Eosinophils # (A) 0.1 k/uL (0-0.7); Eosinophils % (A) 1 %; HCT 30.3 % (39.0-53.0); Lymphocytes # (A) 0.7 k/uL (1.0-4.8); Lymphocytes % (A) 8 %; MCH 30.5 pg (25.0-35.0); MCV 92.5 fL (80.0-100.0); Mean Platelet Volume 9.7; Monocytes # (A) 0.4 k/uL (0-1.0); Monocytes % (A) 5 %; Neutrophils # (A) 7.4 k/uL (1.3-7.7); Neutrophils % (A) 86 %; RBC 3.27 m/uL (4.30-5.90); RDW 13.3 % (11.5-15.5); WBC 8.7 k/uL (3.8-10.6)
[2020-09-19 14:18] LABS: Ionized Calcium 4.9 mg/dL (4.5-5.3)
[2020-09-19 14:22] LABS: INR 1.2 (<1.2); Partial Thromboplastin Time 32.1 sec (22.0-30.0); Prothrombin Time 12.5 sec (9.0-12.0)
[2020-09-19 14:26] LABS: ALT 17 U/L (4-49); AST 34 U/L (17-59); African American GFR (CKD) >90 (>60 ml/min/1.73 sqM); Albumin 2.9 g/dL (3.5-5.0); Alkaline Phosphatase 35 U/L (38-126); Anion Gap 5 mmol/L; Blood Urea Nitrogen 14 mg/dL (9-20); Calcium 8.2 mg/dL (8.4-10.2); Carbon Dioxide 24 mmol/L (22-30); Chloride 109 mmol/L (98-107); Glucose 121 mg/dL (74-99); Magnesium 2.4 mg/dL (1.6-2.3); Non-African American GFR(CKD) >90 (>60 ml/min/1.73 sqM); Potassium 4.3 mmol/L (3.5-5.1); Sodium 138 mmol/L (137-145); Total Bilirubin 0.7 mg/dL (0.2-1.3); Total Protein 4.8 g/dL (6.3-8.2)
[2020-09-19 14:28] LABS: ABG Base Excess -0.5 mmol/L; ABG HCO3 25 mmol/L (21-25); ABG PCO2 48 mmHg (35-45); ABG PH 7.33 (7.35-7.45); ABG PO2 >400 mmHg (83-108); ABG TCO2 27 mmol/L (19-24); Allen Test Performed? Yes
--- NOTE | 2020-09-19 14:29 | XR ---
EXAMINATION TYPE: XR chest 1V portable DATE OF EXAM: 09/19/2020 COMPARISON: 09/16/2020 HISTORY: Respiratory failure. Postop TECHNIQUE: FINDINGS: Endotracheal tube is 3.5 cm from the jacinda. There is left-sided chest tube with the tip at the left lung apex. There is minimal soft tissue air on the left chest wall. There is nasogastric tu be in the stomach. There is right jugular catheter with tip in the main pulmonary artery. There are s ternal wires. There is blunting of the right costophrenic angle. There is no sign of a pneumothorax. There is no heart failure. IMPRESSION: There is some pleural reaction and thickening at the right lung base increased compared t o preoperative exam. No heart failure.
--- NOTE | 2020-09-19 14:38 | P.PN ---
Subjective Progress Note Date: 09/19/20 Principal diagnosis: chest pain Patient is a 70-year-old male with a history of tobacco abuse, hypertension, prediabetes, and COPD who presented to the emergency department with complaints of chest pain. On arrival via EMS he received 2 nitroglycerin and aspirin and had a improvement in his chest pain. In the emergency department he underwent an extensive evaluation. Initial vital signs showed a heart rate of 134 and a blood pressure 42/87. Initial laboratory analysis demonstrated an elevated troponin at 0.086. He was admitted for further management of his new onset atrial fibrillation with rapid ventricular response and non-ST segment elevated myocardial infarction. He was placed on nitro for pain and blood pressure control, Cardizem drip, and a heparin drip. His aspirin was continued. He was also started on a statin. His metformin was held and started on sliding scale insulin. Overnight he converted to normal sinus rhythm and his Cardizem drip was discontinued. His troponin continued to rise to a max of 5.7. He was therefore urgently taken to cardiac catheterization which demonstrated calcified coronary arteries, chronically occluded right coronary artery with collaterals from the left, and critical stenosis in the LAD and a long segment. It was determined that he likely would need cardiac bypass. Echo with EF 45-50%, Carotid dopplers negative for ischemia, Proximal abdominal aortic aneurysm 3.0 cm. He underwent Tripple Vessel CABG on 09/19 he returned to the ICU. Just returned from the OR. Report given from nurse and IT CONSULTANT. Patient doing as expeced post bypass surgery General: Sedated on vent, ET tube in place. CT and mediastinal tube in place. Cardiovascular: sinus tach on monitor Lungs: on vent 14/550/5/40 Psych: sedated on vent Non-ST segment elevated myocardial infarction with LAD disease in the setting of diabetes, systolic cardiomyopathy with ejection fraction 40% - s/p Triple vessel CABG -Cardiothoracic and cardiology recommendations -Carotid Dopplers normal -Aspirin, statin, -Lopressor - strict I and O, monitor fluid closely. Acute blood loss anemia - anticipated outcome of surgery - transfuse as indicated - follow CBC Diabetes mellitus type 2 with hyperglycemia -Stop metformin -Insulin gtt as indicated -Follow blood sugars - A1c 6.6, Plan for discharge home back on metformin if hyperglycemia improved. If he need insulin short term family can help. Thrombocytopenia - mild - follow CBC - doubt HIT New-onset atrial fibrillation with rapid ventricular response, -Now in normal sinus rhythm -Follow telemetry Abdominal aortic aneurysm 3 cm -Continue outpatient follow-up Hypertension, controlled -Continue with Cozaar and beta randy -Follow blood pressures Obesity with BMI 31.6 -Outpatient structured weight loss Tobacco abuse -Cessation -Nicotine replacement if needed we'll attempt to avoid DVT prophylaxis: heparin Discussed with: Patient,nursing Anticipated discharge: 7-[address]: Home A total of 35 minutes was spent on the care of this complex patient more than 50% of the time was spent in counseling and care coordination. Objective - Vital Signs Vital signs: Vital Signs Temp 98.4 F 09/19/20 04:00 Pulse 60 09/19/20 07:00 Resp 16 09/19/20 07:00 BP 139/85 09/19/20 08:00 Pulse Ox 94 L 09/19/20 07:00 Intake & Output 09/18/20 09/19/20 09/19/20 18:59 06:59 18:59 Intake Total 359.429 828.646 53 Output Total 700 1050 1580 Balance -340.571 -221.354 -1527 Intake: IV 60 240 53 0.9 Sodium Chloride 60 240 20 Carrier Intake, IV Titration 59.429 238.646 Amount Heparin Sod,Pork in 0.45% 59.429 238.646 NaCl 25,000 unit In 0.45 % NaCl 1 250ml.bag @ 8.71 UNITS/KG/HR 9.996 mls/hr IV .Q24H [facility] Rx#: [id number] Oral 240 350 Output: Urine 700 1050 80 Estimated Blood Loss 1500 Other: Voiding Method Bedside Commode Bedside Commode # Voids 1 - Labs CBC & Chem 7: 09/19/20 13:55 09/19/20 03:46 Labs: Abnormal Lab Results - Last 24 Hours (Table) 09/17/20 09/18/20 09/18/20 Range/Units 13:42 08:26 17:09 RBC (4.30-5.90) m/uL Hgb (13.0-17.5) gm/dL Hct (39.0-53.0) % Plt Count (150-450) k/uL APTT (22.0-30.0) sec ABG pCO2 (35-45) mmHg ABG pO2 (83-108) mmHg ABG HCO3 (21-25) mmol/L ABG Total CO2 (19-24) mmol/L ABG O2 Saturation (94-97) % ABG Hematocrit (34.0-46.0) % ABG Potassium (3.4-4.5) mmol/L ABG Ionized Calcium (4.5-5.3) mg/dL ABG Glucose (75-99) mg/dL ABG Lactic Acid (0.5-1.6) mmol/L Hemoglobin (13.0-17.5) gm/dL Chloride (98-107) mmol/L Glucose (74-99) mg/dL POC Glucose (mg/dL) 124 H (75-99) mg/dL Arterial Blood Potassium (3.4-4.5) mmol/L Arterial Blood Glucose (75-99) mg/dL Crossmatch See Detail See Detail 09/18/20 09/19/20 09/19/20 Range/Units 21:00 03:46 03:46 RBC (4.30-5.90) m/uL Hgb (13.0-17.5) gm/dL Hct (39.0-53.0) % Plt Count 136 L (150-450) k/uL APTT 40.7 H (22.0-30.0) sec ABG pCO2 (35-45) mmHg ABG pO2 (83-108) mmHg ABG HCO3 (21-25) mmol/L ABG Total CO2 (19-24) mmol/L ABG O2 Saturation (94-97) % ABG Hematocrit (34.0-46.0) % ABG Potassium (3.4-4.5) mmol/L ABG Ionized Calcium (4.5-5.3) mg/dL ABG Glucose (75-99) mg/dL ABG Lactic Acid (0.5-1.6) mmol/L Hemoglobin (13.0-17.5) gm/dL Chloride (98-107) mmol/L Glucose (74-99) mg/dL POC Glucose (mg/dL) 117 H (75-99) mg/dL Arterial Blood Potassium (3.4-4.5) mmol/L Arterial Blood Glucose (75-99) mg/dL Crossmatch 09/19/20 09/19/20 09/19/20 Range/Units 03:46 08:52 10:29 RBC (4.30-5.90) m/uL Hgb (13.0-17.5) gm/dL Hct (39.0-53.0) % Plt Count (150-450) k/uL APTT (22.0-30.0) sec ABG pCO2 49 H 49 H (35-45) mmHg ABG pO2 411 H (83-108) mmHg ABG HCO3 28 H 27 H (21-25) mmol/L ABG Total CO2 29 H 29 H (19-24) mmol/L ABG O2 Saturation 99.9 H 97.5 H (94-97) % ABG Hematocrit (34.0-46.0) % ABG Potassium (3.4-4.5) mmol/L ABG Ionized Calcium (4.5-5.3) mg/dL ABG Glucose 103 H 134 H (75-99) mg/dL ABG Lactic Acid (0.5-1.6) mmol/L Hemoglobin 12.5 L 12.0 L (13.0-17.5) gm/dL Chloride 109 H (98-107) mmol/L Glucose 120 H (74-99) mg/dL POC Glucose (mg/dL) (75-99) mg/dL Arterial Blood Potassium (3.4-4.5) mmol/L Arterial Blood Glucose 103 H 134 H (75-99) mg/dL Crossmatch 09/19/20 09/19/20 09/19/20 Range/Units 11:19 11:56 13:19 RBC (4.30-5.90) m/uL Hgb (13.0-17.5) gm/dL Hct (39.0-53.0) % Plt Count (150-450) k/uL APTT (22.0-30.0) sec ABG pCO2 (35-45) mmHg ABG pO2 325 H 328 H >420 H (83-108) mmHg ABG HCO3 (21-25) mmol/L ABG Total CO2 26 H 27 H 26 H (19-24) mmol/L ABG O2 Saturation 99.9 H 99.9 H 100.0 H (94-97) % ABG Hematocrit 30 L 32 L 32 L (34.0-46.0) % ABG Potassium 4.8 H 4.9 H (3.4-4.5) mmol/L ABG Ionized Calcium 4.1 L 4.3 L 4.3 L (4.5-5.3) mg/dL ABG Glucose 179 H 170 H 136 H (75-99) mg/dL ABG Lactic Acid 1.7 H 1.9 H (0.5-1.6) mmol/L Hemoglobin 9.8 L 10.3 L 10.3 L (13.0-17.5) gm/dL Chloride (98-107) mmol/L Glucose (74-99) mg/dL POC Glucose (mg/dL) (75-99) mg/dL Arterial Blood Potassium 4.8 H 4.9 H (3.4-4.5) mmol/L Arterial Blood Glucose 179 H 170 H 136 H (75-99) mg/dL Crossmatch 09/19/20 09/19/20 Range/Units 13:54 13:55 RBC 3.27 L (4.30-5.90) m/uL Hgb 10.0 L D (13.0-17.5) gm/dL Hct 30.3 L (39.0-53.0) % Plt Count (150-450) k/uL APTT (22.0-30.0) sec ABG pCO2 (35-45) mmHg ABG pO2 (83-108) mmHg ABG HCO3 (21-25) mmol/L ABG Total CO2 (19-24) mmol/L ABG O2 Saturation (94-97) % ABG Hematocrit (34.0-46.0) % ABG Potassium (3.4-4.5) mmol/L ABG Ionized Calcium (4.5-5.3) mg/dL ABG Glucose (75-99) mg/dL ABG Lactic Acid (0.5-1.6) mmol/L Hemoglobin (13.0-17.5) gm/dL Chloride (98-107) mmol/L Glucose (74-99) mg/dL POC Glucose (mg/dL) 130 H (75-99) mg/dL Arterial Blood Potassium (3.4-4.5) mmol/L Arterial Blood Glucose (75-99) mg/dL Crossmatch Microbiology - Last 24 Hours (Table) 09/17/20 08:55 Nasal Screen MRSA/MSSA - Final Nasal Swab
[2020-09-19 14:47] LABS: Glucose,Whole Blood 125 mg/dL (75-99)
[2020-09-19] MEDS: INSULIN REGULAR 100 UNIT in SODIUM CHLORIDE 0.9% 100 ML IV SCH (14:51)
--- NOTE | 2020-09-19 14:53 | P.PN ---
Subjective Progress Note Date: 09/19/20 Principal diagnosis: Coronary artery disease, non-ST segment elevation myocardial infarction The patient is seen today 09/19/2020 in follow-up in the intensive care unit. He was originally admitted on 09/16/2020 after presenting with a non-ST segment elevation myocardial infarction, atrial fibrillation. He has a history of diabetes mellitus, hypertension, chronic tobacco dependence with underlying COPD. He had subsequently undergone cardiac catheterization and was found to have significant coronary artery disease had undergone urgent myocardial revascularization today. He received a EGAN to the LAD, saphenous vein graft to the RCA, left radial artery to the OM. He is seen in the immediate postoperative period. He is intubated on the mechanical ventilator. Current settings assist-control 14, tidal volume 550, FiO2 100% and a PEEP of 8. Initial blood gases revealed a PaO2 greater than 400, pCO2 40, pH 7.33. Adjustments were made including increasing the rate 18 and dropped the FiO2 to 40%. He does have epicardial pacing wire single with V pacing backup. The left and mediastinal chest tubes are in place. He is currently sedated on propofol at 15 mcg/kg/m. Cardizem at 5 mg per hour, nitroglycerin drip at 5 mcg/m. Lactated Ringer's at 50 mL per hour. Cardiac output 5.0. Cardiac index 2.1. Chest x-ray reveals some pleural reaction and thickening at the right lung base. White count 8.7. Hemoglobin 10.0. INR 1.2. Sodium 138. Potassium 4.3. Creatinine 0.81. Objective - Vital Signs Vital signs: Vital Signs Temp 98.4 F 09/19/20 04:00 Pulse 60 09/19/20 07:00 Resp 16 09/19/20 07:00 BP 139/85 09/19/20 08:00 Pulse Ox 94 L 09/19/20 07:00 Intake & Output 09/18/20 09/19/20 09/19/20 18:59 06:59 18:59 Intake Total 359.429 828.646 53 Output Total 700 1050 1580 Balance -340.571 -221.266 -5194 Intake: IV 60 240 53 0.9 Sodium Chloride 60 240 20 Carrier Intake, IV Titration 59.429 238.646 Amount Heparin Sod,Pork in 0.45% 59.429 238.646 NaCl 25,000 unit In 0.45 % NaCl 1 250ml.bag @ 8.71 UNITS/KG/HR 9.996 mls/hr IV .Q24H [facility] Rx#: [id number] Oral 240 350 Output: Urine 700 1050 80 Estimated Blood Loss 1500 Other: Voiding Method Bedside Commode Bedside Commode # Voids 1 - Exam GENERAL EXAM: Intubated, sedated 70-year-old gentleman, on the mechanical ventilator, comfortable in no apparent distress. HEAD: Normocephalic. EYES: Sluggish reaction of pupils, equal size. NOSE: Clear with pink turbinates. THROAT: Oral endotracheal and gastric tube secured in place. No erythema or exudates. NECK: No masses, no JVD. CHEST: Sternal dressing dry and intact. Chest tubes in place. V pacing wires i n place. LUNGS: Equal air entry with no crackles, wheeze, rhonchi or dullness. CVS: S1 and S2 normal with no audible murmur, regular rhythm. ABDOMEN: No hepatosplenomegaly, normal bowel sounds, no guarding or rigidity. SPINE: No scoliosis or deformity SKIN: No rashes CENTRAL NERVOUS SYSTEM: Sedated, tone is normal in all 4 extremities. EXTREMITIES: Left radial KANDACE in place. There is no peripheral edema. No clubbing, no cyanosis. Peripheral pulses are intact. - Labs CBC & Chem 7: 09/19/20 13:55 09/19/20 13:55 Labs: Abnormal Lab Results - Last 24 Hours (Table) 09/17/20 09/18/20 09/18/20 Range/Units 13:42 08:26 17:09 RBC (4.30-5.90) m/uL Hgb (13.0-17.5) gm/dL Hct (39.0-53.0) % Plt Count (150-450) k/uL PT (9.0-12.0) sec INR (<1.2) APTT (22.0-30.0) sec ABG pH (7.35-7.45) ABG pCO2 (35-45) mmHg ABG pO2 (83-108) mmHg ABG HCO3 (21-25) mmol/L ABG Total CO2 (19-24) mmol/L ABG O2 Saturation (94-97) % ABG Hematocrit (34.0-46.0) % ABG Potassium (3.4-4.5) mmol/L ABG Ionized Calcium (4.5-5.3) mg/dL ABG Glucose (75-99) mg/dL ABG Lactic Acid (0.5-1.6) mmol/L Hemoglobin (13.0-17.5) gm/dL Chloride (98-107) mmol/L Glucose (74-99) mg/dL POC Glucose (mg/dL) 124 H (75-99) mg/dL Calcium (8.4-10.2) mg/dL Magnesium (1.6-2.3) mg/dL Alkaline Phosphatase (38-126) U/L Total Protein (6.3-8.2) g/dL Albumin (3.5-5.0) g/dL Arterial Blood Potassium (3.4-4.5) mmol/L Arterial Blood Glucose (75-99) mg/dL Crossmatch See Detail See Detail 09/18/20 09/19/20 09/19/20 Range/Units 21:00 03:46 03:46 RBC (4.30-5.90) m/uL Hgb (13.0-17.5) gm/dL Hct (39.0-53.0) % Plt Count 136 L (150-450) k/uL PT (9.0-12.0) sec INR (<1.2) APTT 40.7 H (22.0-30.0) sec ABG pH (7.35-7.45) ABG pCO2 (35-45) mmHg ABG pO2 (83-108) mmHg ABG HCO3 (21-25) mmol/L ABG Total CO2 (19-24) mmol/L ABG O2 Saturation (94-97) % ABG Hematocrit (34.0-46.0) % ABG Potassium (3.4-4.5) mmol/L ABG Ionized Calcium (4.5-5.3) mg/dL ABG Glucose (75-99) mg/dL ABG Lactic Acid (0.5-1.6) mmol/L Hemoglobin (13.0-17.5) gm/dL Chloride (98-107) mmol/L Glucose (74-99) mg/dL POC Glucose (mg/dL) 117 H (75-99) mg/dL Calcium (8.4-10.2) mg/dL Magnesium (1.6-2.3) mg/dL Alkaline Phosphatase (38-126) U/L Total Protein (6.3-8.2) g/dL Albumin (3.5-5.0) g/dL Arterial Blood Potassium (3.4-4.5) mmol/L Arterial Blood Glucose (75-99) mg/dL Crossmatch 09/19/20 09/19/20 09/19/20 Range/Units 03:46 08:52 10:29 RBC (4.30-5.90) m/uL Hgb (13.0-17.5) gm/dL Hct (39.0-53.0) % Plt Count (150-450) k/uL PT (9.0-12.0) sec INR (<1.2) APTT (22.0-30.0) sec ABG pH (7.35-7.45) ABG pCO2 49 H 49 H (35-45) mmHg ABG pO2 411 H (83-108) mmHg ABG HCO3 28 H 27 H (21-25) mmol/L ABG Total CO2 29 H 29 H (19-24) mmol/L ABG O2 Saturation 99.9 H 97.5 H (94-97) % ABG Hematocrit (34.0-46.0) % ABG Potassium (3.4-4.5) mmol/L ABG Ionized Calcium (4.5-5.3) mg/dL ABG Glucose 103 H 134 H (75-99) mg/dL ABG Lactic Acid (0.5-1.6) mmol/L Hemoglobin 12.5 L 12.0 L (13.0-17.5) gm/dL Chloride 109 H (98-107) mmol/L Glucose 120 H (74-99) mg/dL POC Glucose (mg/dL) (75-99) mg/dL Calcium (8.4-10.2) mg/dL Magnesium (1.6-2.3) mg/dL Alkaline Phosphatase (38-126) U/L Total Protein (6.3-8.2) g/dL Albumin (3.5-5.0) g/dL Arterial Blood Potassium (3.4-4.5) mmol/L Arterial Blood Glucose 103 H 134 H (75-99) mg/dL Crossmatch 09/19/20 09/19/20 09/19/20 Range/Units 11:19 11:56 13:19 RBC (4.30-5.90) m/uL Hgb (13.0-17.5) gm/dL Hct (39.0-53.0) % Plt Count (150-450) k/uL PT (9.0-12.0) sec INR (<1.2) APTT (22.0-30.0) sec ABG pH (7.35-7.45) ABG pCO2 (35-45) mmHg ABG pO2 325 H 328 H >420 H (83-108) mmHg ABG HCO3 (21-25) mmol/L ABG Total CO2 26 H 27 H 26 H (19-24) mmol/L ABG O2 Saturation 99.9 H 99.9 H 100.0 H (94-97) % ABG Hematocrit 30 L 32 L 32 L (34.0-46.0) % ABG Potassium 4.8 H 4.9 H (3.4-4.5) mmol/L ABG Ionized Calcium 4.1 L 4.3 L 4.3 L (4.5-5.3) mg/dL ABG Glucose 179 H 170 H 136 H (75-99) mg/dL ABG Lactic Acid 1.7 H 1.9 H (0.5-1.6) mmol/L Hemoglobin 9.8 L 10.3 L 10.3 L (13.0-17.5) gm/dL Chloride (98-107) mmol/L Glucose (74-99) mg/dL POC Glucose (mg/dL) (75-99) mg/dL Calcium (8.4-10.2) mg/dL Magnesium (1.6-2.3) mg/dL Alkaline Phosphatase (38-126) U/L Total Protein (6.3-8.2) g/dL Albumin (3.5-5.0) g/dL Arterial Blood Potassium 4.8 H 4.9 H (3.4-4.5) mmol/L Arterial Blood Glucose 179 H 170 H 136 H (75-99) mg/dL Crossmatch 09/19/20 09/19/20 09/19/20 Range/Units 13:54 13:55 13:55 RBC 3.27 L (4.30-5.90) m/uL Hgb 10.0 L D (13.0-17.5) gm/dL Hct 30.3 L (39.0-53.0) % Plt Count (150-450) k/uL PT 12.5 H (9.0-12.0) sec INR 1.2 H (<1.2) APTT 32.1 H (22.0-30.0) sec ABG pH (7.35-7.45) ABG pCO2 (35-45) mmHg ABG pO2 (83-108) mmHg ABG HCO3 (21-25) mmol/L ABG Total CO2 (19-24) mmol/L ABG O2 Saturation (94-97) % ABG Hematocrit (34.0-46.0) % ABG Potassium (3.4-4.5) mmol/L ABG Ionized Calcium (4.5-5.3) mg/dL ABG Glucose (75-99) mg/dL ABG Lactic Acid (0.5-1.6) mmol/L Hemoglobin (13.0-17.5) gm/dL Chloride (98-107) mmol/L Glucose (74-99) mg/dL POC Glucose (mg/dL) 130 H (75-99) mg/dL Calcium (8.4-10.2) mg/dL Magnesium (1.6-2.3) mg/dL Alkaline Phosphatase (38-126) U/L Total Protein (6.3-8.2) g/dL Albumin (3.5-5.0) g/dL Arterial Blood Potassium (3.4-4.5) mmol/L Arterial Blood Glucose (75-99) mg/dL Crossmatch 09/19/20 09/19/20 Range/Units 13:55 14:26 RBC (4.30-5.90) m/uL Hgb (13.0-17.5) gm/dL Hct (39.0-53.0) % Plt Count (150-450) k/uL PT (9.0-12.0) sec INR (<1.2) APTT (22.0-30.0) sec ABG pH 7.33 L (7.35-7.45) ABG pCO2 48 H (35-45) mmHg ABG pO2 >400 H (83-108) mmHg ABG HCO3 (21-25) mmol/L ABG Total CO2 27 H (19-24) mmol/L ABG O2 Saturation 100.0 H (94-97) % ABG Hematocrit (34.0-46.0) % ABG Potassium (3.4-4.5) mmol/L ABG Ionized Calcium (4.5-5.3) mg/dL ABG Glucose (75-99) mg/dL ABG Lactic Acid (0.5-1.6) mmol/L Hemoglobin (13.0-17.5) gm/dL Chloride 109 H (98-107) mmol/L Glucose 121 H (74-99) mg/dL POC Glucose (mg/dL) (75-99) mg/dL Calcium 8.2 L (8.4-10.2) mg/dL Magnesium 2.4 H (1.6-2.3) mg/dL Alkaline Phosphatase 35 L (38-126) U/L Total Protein 4.8 L (6.3-8.2) g/dL Albumin 2.9 L (3.5-5.0) g/dL Arterial Blood Potassium (3.4-4.5) mmol/L Arterial Blood Glucose (75-99) mg/dL Crossmatch Microbiology - Last 24 Hours (Table) 09/17/20 08:55 Nasal Screen MRSA/MSSA - Final Nasal Swab Assessment and Plan Assessment: 1 Non-ST segment elevation myocardial infarction with significant triple-vessel disease. Status post coronary revascularization with EGAN to the LAD, left radial arterial graft to the obtuse marginal branch, saphenous vein graft to the RCA. Postoperative day #0. 2 Acute hypoxic respiratory failure requiring intubation mechanical ventilatory support, expected outcome of surgery 3 Atrial fibrillation 4 Diabetes mellitus 5 Chronic tobacco dependence 6 Hypertension Plan: The patient was seen and evaluated by Dr. Bell Chest x-ray, ABGs and labs reviewed Assist-control rate increased to 18 FiO2 decreased to 40% Continue current treatment plan Plan for extubation within 6 hours per protocol as tolerated We will continue to follow make further recommendations based on his clinical status Critical Care time 38 minutes I, the cosigning physician, performed a history & physical examination of the patient. Lungs sounds are clear. Maintaining good O2 saturations in the 90s on 40% FiO2 via the mechanical ventilator. I discussed the assessment and plan of care with my nurse practitioner, Patricia Munguia. I attest to the above note as dictated by her.
[2020-09-19] MEDS: NON FORMULARY DRUG (Fluticasone/Umeclidin/Vilanter [Trelegy Ellipta 100-62.5-25] 1 EACH Bl INHALATION SCH (15:07)
[2020-09-19 15:08] LABS: Platelet Count 73 k/uL (150-450)
[2020-09-19 15:53] LABS: Basophils % (A) 0 %; Eosinophils # (A) 0.1 k/uL (0-0.7); Eosinophils % (A) 1 %; HCT 31.5 % (39.0-53.0); HGB 10.3 gm/dL (13.0-17.5); Lymphocytes # (A) 0.9 k/uL (1.0-4.8); Lymphocytes % (A) 10 %; MCH 30.1 pg (25.0-35.0); MCHC 32.6 g/dL (31.0-37.0); MCV 92.2 fL (80.0-100.0); Mean Platelet Volume 9.7; Monocytes # (A) 0.3 k/uL (0-1.0); Monocytes % (A) 4 %; Neutrophils # (A) 6.9 k/uL (1.3-7.7); Neutrophils % (A) 84 %; RBC 3.41 m/uL (4.30-5.90); RDW 13.4 % (11.5-15.5); WBC 8.2 k/uL (3.8-10.6)
[2020-09-19 15:56] LABS: Glucose,Whole Blood 119 mg/dL (75-99)
[2020-09-19 15:56] LABS: Platelet Count 76 k/uL (150-450)
[2020-09-19] MEDS ORDERED: IPRATROPIUM-ALBUTEROL 3 ML NEB INHALATION SCH (16:00)
[2020-09-19 16:30] LABS: Glucose,Whole Blood 129 mg/dL (75-99)
[2020-09-19 16:32] LABS: ABG Base Excess -0.8 mmol/L; ABG HCO3 26 mmol/L (21-25); ABG Oxygen Saturation 96.2 % (94-97); ABG PCO2 54 mmHg (35-45); ABG PH 7.29 (7.35-7.45); ABG PO2 83 mmHg (83-108); ABG TCO2 28 mmol/L (19-24); Allen Test Performed? Yes
--- NOTE | 2020-09-19 16:34 | OP ---
OPERATIVE REPORT DATE OF THE OPERATION: 09/19/2020. ATTENDING SURGEON: Dr. Rey Roca. ASSIST: Tanya Laws, Ke Dodson and Kalen Esteban NP. PREOPERATIVE DIAGNOSIS: 1. Non ST elevation myocardial infarction. 2. Three vessel coronary artery disease. POSTOPERATIVE DIAGNOSIS: 1. Non ST elevation myocardial infarction. 2. Three vessel coronary artery disease. PROCEDURE PERFORMED: Coronary bypass grafting x3 with left internal mammary to left anterior descending artery, reverse saphenous vein graft off the aorta to the posterior ventricular branch of the right coronary artery and radial artery off the aorta to the circumflex artery with bilateral lower extremity greater saphenous vein endoscopic vein harvesting, endoscopic left radial artery harvest, clip ligation of the left atrial appendage, and intraoperative ESTRELLITA. ANESTHESIA: General. BLOOD LOSS: 500 mL. SUMMARY: The patient was taken the operating room, placed in supine position. After administration of general endotracheal anesthetic, placement of a [place] catheter arterial line, adequate IV access, Alonzo catheter, patient was carefully prepped and draped in a sterile fashion using chlorhexidine paint and sterile towels. After a negative Eyal's test, the left radial artery was harvested endoscopically. A small incision at the elbow and at the wrist. All branches were doubly clipped and divided and the incisions closed in 2 layers over a small Luis Daniel-Laureano drain. The greater saphenous vein was harvested from both lower extremities, both thighs using the endoscopic vein harvesting technique. All branches were doubly tied and divided. The incision was closed in 2 layers. A midline incision in the chest made, sternum divided. Pericardium was opened. Heart size was mildly enlarged. Aorta was soft. There were some adhesions around the aorta and around the apex anterior lateral wall of the epicardium with the pericardium. These were gingerly taken down. The left pleural space was opened. Left internal mammary artery harvested as a pedicle from the xiphoid to the subclavian vein. There was a 2 mm quality with excellent flow. The patient was heparinized. were cannulated. Antegrade and retrograde cardioplegic catheters positioned in the ascending aorta and the coronary sinus. The patient was placed on bypass, cross-clamp placed, heart arrested with 1 L of antegrade followed by 500 mL retrograde Cardioplegia. Retrograde cardioplegia was delivered 3-500 mL at the end of each 20 minute interval. Distal anastomosis constructed. Reverse saphenous vein graft anastomosis to the posterior ventricular branch of the right coronary artery constructed using a 7-0 Prolene running suture. Caliber of this vessel was 1.75 mm. Next, the radial artery distal anastomosis to the circumflex, large circumflex artery was constructed in a similar fashion. This was a 2 mm vessel. Last, the left internal mammary was beveled distal anastomosis to the mid left anterior descending artery constructed using 8-0 Prolene running suture. Caliber of this vessel was 2 mm. Under single cross-clamp, two proximal anastomosis were constructed on the ascending aorta using 6-0 Prolene running suture. The patient was placed head down. The aortic root was vented. 1 L of warm blood retrograde cardioplegia was run. Cross-clamp was then removed. At this point, the base of the left atrial appendage was measured. A 35 mm AtriClip was secured at the base officially obliterating the left atrial appendage. The cross-clamp was removed. The vein graft de-aired. Once beating in normal sinus rhythm, patient was reperfused and brought off bypass. Came off bypass uneventfully with good hemodynamics. Protamine delivered. Patient decannulated. Ventricular pacing wires were placed. Mediastinal left pleural chest tubes were placed. At this point, the sternum was closed with 3 #6 sternal wires and 3 [id number] [place] sternal cable closure devices. Skin, subcutaneous tissue and fascia closed in 3 layers. No complications. Patient tolerated procedure well. Postoperative ESTRELLITA showed excellent left ventricular function, EF of about 50-55 percent, and the patient was taken to the ICU in critical but stable condition. MMODL / IJN: [id number] /
[2020-09-19 17:15] LABS: ABG Base Excess -0.6 mmol/L; ABG HCO3 26 mmol/L (21-25); ABG Oxygen Saturation 97.2 % (94-97); ABG PCO2 54 mmHg (35-45); ABG PH 7.29 (7.35-7.45); ABG PO2 89 mmHg (83-108); ABG TCO2 28 mmol/L (19-24)
[2020-09-19 17:17] LABS: Allen Test Performed? no
[2020-09-19] MEDS: ACETAMINOPHEN IV (For NPO) 1,000 MG in EMPTY BAG 1 BAG IVPB SCH ×2 (17:24→23:54)
[2020-09-19 17:44] LABS: Glucose,Whole Blood 129 mg/dL (75-99)
[2020-09-19] MEDS ORDERED: KETOROLAC 15 MG/ML 1 ML VIAL IVP SCH (18:00)
[2020-09-19] MEDS: KETOROLAC 15 MG/ML 1 ML VIAL IVP SCH ×2 (18:20→23:53)
[2020-09-19 18:22] LABS: Glucose,Whole Blood 117 mg/dL (75-99)
[2020-09-19] MEDS: HEPARIN SODIUM,PORCINE 5,000 UNIT/ML 1 ML VIAL SQ SCH (18:43)
[2020-09-19 19:19] LABS: Glucose,Whole Blood 141 mg/dL (75-99)
[2020-09-19 19:37] LABS: Basophils % (A) 0 %; Eosinophils # (A) 0.1 k/uL (0-0.7); Eosinophils % (A) 1 %; HGB 11.5 gm/dL (13.0-17.5); Lymphocytes # (A) 0.5 k/uL (1.0-4.8); Lymphocytes % (A) 5 %; MCH 30.5 pg (25.0-35.0); MCHC 32.9 g/dL (31.0-37.0); MCV 92.8 fL (80.0-100.0); Mean Platelet Volume 9.4; Monocytes # (A) 0.4 k/uL (0-1.0); Monocytes % (A) 4 %; Neutrophils % (A) 89 %; RBC 3.78 m/uL (4.30-5.90); RDW 13.5 % (11.5-15.5); WBC 10.1 k/uL (3.8-10.6)
[2020-09-19 19:55] LABS: Platelet Count 89 k/uL (150-450)
[2020-09-19] MEDS: ATORVASTATIN 80 MG TAB PO SCH (20:00)
[2020-09-19 20:18] LABS: Glucose,Whole Blood 134 mg/dL (75-99)
[2020-09-19] MEDS: IPRATROPIUM-ALBUTEROL 3 ML NEB INHALATION SCH (20:38)
[2020-09-19 21:09] LABS: Glucose,Whole Blood 135 mg/dL (75-99)
[2020-09-19 22:54] LABS: Glucose,Whole Blood 143 mg/dL (75-99)
[2020-09-20 00:02] LABS: Glucose,Whole Blood 143 mg/dL (75-99)
[2020-09-20] MEDS: HYDROcodone/APAP 5-325MG 1 EACH TAB PO PRN ×4 (02:22→20:54)
[2020-09-20 02:37] LABS: Glucose,Whole Blood 142 mg/dL (75-99)
[2020-09-20 04:04] LABS: Glucose,Whole Blood 126 mg/dL (75-99)
[2020-09-20 05:06] LABS: Basophils % (A) 0 %; Eosinophils # (A) 0.1 k/uL (0-0.7); Eosinophils % (A) 1 %; HCT 34.8 % (39.0-53.0); HGB 11.2 gm/dL (13.0-17.5); Lymphocytes # (A) 1.2 k/uL (1.0-4.8); Lymphocytes % (A) 13 %; MCH 30.1 pg (25.0-35.0); MCHC 32.3 g/dL (31.0-37.0); MCV 93.3 fL (80.0-100.0); Mean Platelet Volume 9.3; Monocytes # (A) 0.5 k/uL (0-1.0); Monocytes % (A) 5 %; Neutrophils # (A) 7.5 k/uL (1.3-7.7); Neutrophils % (A) 80 %; RBC 3.73 m/uL (4.30-5.90); RDW 13.4 % (11.5-15.5); WBC 9.4 k/uL (3.8-10.6)
[2020-09-20 05:13] LABS: Platelet Count 93 k/uL (150-450)
[2020-09-20 05:21] LABS: Ionized Calcium 4.7 mg/dL (4.5-5.3)
[2020-09-20 05:47] LABS: ALT 19 U/L (4-49); AST 48 U/L (17-59); African American GFR (CKD) >90 (>60 ml/min/1.73 sqM); Albumin 3.2 g/dL (3.5-5.0); Alkaline Phosphatase 46 U/L (38-126); Anion Gap 4 mmol/L; Blood Urea Nitrogen 17 mg/dL (9-20); Calcium 8.3 mg/dL (8.4-10.2); Carbon Dioxide 26 mmol/L (22-30); Chloride 107 mmol/L (98-107); Glucose 120 mg/dL (74-99); Magnesium 2.1 mg/dL (1.6-2.3); Non-African American GFR(CKD) 88 (>60 ml/min/1.73 sqM); Potassium 4.8 mmol/L (3.5-5.1); Sodium 137 mmol/L (137-145); Total Bilirubin 0.9 mg/dL (0.2-1.3); Total Protein 5.5 g/dL (6.3-8.2)
[2020-09-20] MEDS: KETOROLAC 15 MG/ML 1 ML VIAL IVP SCH ×4 (06:00→23:54)
[2020-09-20] MEDS: ALBUMIN HUMAN 5% 250 ML in EMPTY BAG 1 BAG IVPB PRN ×2 (06:16→14:26)
[2020-09-20] MEDS: HEPARIN SODIUM,PORCINE 5,000 UNIT/ML 1 ML VIAL SQ SCH ×3 (06:34→20:25)
[2020-09-20 07:02] LABS: Glucose,Whole Blood 131 mg/dL (75-99)
--- NOTE | 2020-09-20 07:14 | XR ---
EXAMINATION TYPE: XR chest 1V portable DATE OF EXAM: 09/20/2020 COMPARISON: 09/19/2020 HISTORY: Postop TECHNIQUE: Single frontal view of the chest is obtained. FINDINGS: There is left-sided chest tube with the tip at the left lung apex. There is soft tissue em physema overlying the left chest wall. NG tube ET tube have been removed. There is right jugular cath eter with tip in the main pulmonary artery. There are sternal wires. Mediastinal drain noted. Bilater al consolidation and small right effusion. There is 1% left apical pneumothorax. Mild underlying inte rstitial edema not excluded. IMPRESSION: 1. Diffuse pleural-parenchymal changes are stable postoperative changes. Approximately 1% left apical pneumothorax with chest tube in position.
--- NOTE | 2020-09-20 07:38 | PN ---
PROGRESS NOTE Mr. Lindsey is a 70-year-old male known history of hypertension, history of chronic tobacco use, diabetes mellitus, who presented with non ST-segment elevation myocardial infarction, underwent cardiac catheterization, was found to have chronically occluded right coronary artery with critical stenosis in the LAD. He underwent coronary bypass grafting yesterday with EGAN to the LAD, saphenous vein graft to the right coronary artery and radial to the circumflex. He is extubated, sitting up in the chair, feeling well. Denies any change in his breathing. He has some soreness in the chest. He is in sinus mechanism. He denies any dizziness or palpitation. He is on no pressors. He continues to be at this time on aspirin once a day, Lipitor 80 mg daily, Plavix 75 mg daily, metoprolol tartrate 12.5 mg twice a day, IV nitroglycerin and IV Cardizem. PHYSICAL EXAMINATION: Blood pressure 106/40 with the heart rate in the 60s. LUNGS: A few crackles at the bases. No wheezes. HEART: Regular rate and rhythm. S1, S2. No S3. No rub. ABDOMEN: Soft, nontender. EXTREMITIES: No edema. LAB DATA: Lab data revealed BUN and creatinine of 17 and 0.89, potassium 4.8. Hemoglobin of 11.2. Chest x-ray shows a small left apical pneumothorax. IMPRESSION: 1. Status post coronary artery bypass grafting with multivessel coronary artery disease. 2. Status post non ST-segment elevation myocardial infarction. 3. Chronic tobacco use. 4. Diabetes. 5. Hypertension. RECOMMENDATION: From the cardiac standpoint, will continue present therapy, continue to increase his level of activity gradually and depending on his blood pressure, further adjustment of his medical regimen will be done. MMODL / IJN: [id number] /
[2020-09-20] MEDS: IPRATROPIUM-ALBUTEROL 3 ML NEB INHALATION SCH ×4 (08:38→21:56)
[2020-09-20] MEDS: METOPROLOL TARTRATE 12.5 MG TAB PO SCH ×2 (08:43→21:48)
[2020-09-20] MEDS: CLOPIDOGREL 75 MG TAB PO SCH (08:43)
[2020-09-20] MEDS: ASPIRIN 325 MG TAB PO SCH (08:43)
--- NOTE | 2020-09-20 08:43 | P.PN ---
Subjective Progress Note Date: 09/20/20 Principal diagnosis: Symptomatic multivessel coronary artery disease, non-ST elevated myocardial infarction this admission, new-onset preoperative atrial fibrillation with RVR. Past medical history significant for hypertension, diabetes mellitus type 2, COPD with a preoperative FEV1 of 54% of predicted value, chronic ongoing tobacco abuse, history of hiatal hernia and history of sleep apnea. POD #1 coronary artery bypass grafting 3 with left internal mammary artery to left anterior setting coronary artery, reverse greater saphenous vein graft off the aorta to the posterior ventricular branch of the right coronary artery and a radial artery off the aorta to the circumflex coronary artery. Bilateral lower extremity greater saphenous vein endoscopic harvesting, endoscopic left radial artery harvest, clip ligation of the left atrial appendage using a 35 mm Atriclip and intraoperative transesophageal echocardiogram. Postoperative acute blood loss anemia, expected given hemodilution and cardiopulmonary bypass. The patient was seen in follow-up today 09/20/2020 at his bedside in the intensive care unit. He is awake, alert and oriented 3, sitting up to the bedside chair and is in no acute distress. He denies any complaints of shortness of breath although is complaining of some surgical type pain to his chest tube insertion sites with taking a deep breath. He remains hemodynamically stable and is currently on no inotropic or pressor support. Right IJ [place] cath remains in place with current hemodynamics showing a cardiac output 5.9, cardiac index 2.9, PA pressures 28/10 and a CVP 5 mmHg. Cardizem drip is infusing at 5 mg per hour for radial artery spasm prophylaxis. Bedside telemetry showing normal sinus rhythm heart rate 66 BPM. Mediastinal and left pleural chest tubes remain in place to low continuous wall suction -20 cm H2O. No air leak is present. Draining thin serosanguineous drainage with 120 mL output in the last 8 hours and 450 mL output since surgery. Oxygen saturations are 95% on 3 L nasal cannula and he is achieving 1000 mL on his incentive spirometry. Objective - Vital Signs Vital signs: Vital Signs Temp 98.8 F 09/20/20 04:00 Pulse 64 09/20/20 07:00 Resp 29 H 09/20/20 07:00 BP 91/57 09/20/20 07:00 Pulse Ox 94 L 09/20/20 07:00 Intake & Output 09/19/20 09/20/20 09/20/20 18:59 06:59 18:59 Intake Total 372.435 828.815 104.55 Output Total 2550 770 50 Balance -2177.565 58.815 54.55 Weight 120.5 kg Intake: IV 353.5 813 79 0.9 Sodium Chloride 38 Carrier Co/CI 110 20 Diltiazem 125 mg In 25 5 Sodium Chloride 0.9% 100 ml @ 5 MG/HR 5 mls/hr IV .Q24H [facility] Rx#:[id number] Lactated Ringers 1,000 ml 250 600 50 @ 50 mls/hr IV .Q20H [facility] Rx#:[id number] Nitroglycerin-D5w Pmx 50 7.5 5 mg In Dextrose/Water 1 250ml.bag @ 5 MCG/MIN 1.5 mls/hr IV .Q24H [facility] Rx#: [id number] pressure bag 93 9 Intake, IV Titration 18.935 15.815 25.55 Amount Insulin Regular 100 unit 15.815 In Sodium Chloride 0.9% 100 ml @ Per Protocol IV .Q0M [facility] Rx#:[id number] Nitroglycerin-D5w Pmx 50 25.55 mg In Dextrose/Water 1 250ml.bag @ 5 MCG/MIN 1.5 mls/hr IV .Q24H [facility] Rx#: [id number] propofoL 1,000 mg In 18.935 Empty Bag 1 bag @ Titrate IV .Q0M [facility] Rx#: [id number] Output: Chest Tube Drainage 160 250 30 Left Pleural/Mediastinal 160 250 30 Drainage 10 Left Wrist 10 Urine 880 520 20 Estimated Blood Loss 1500 Other: Voiding Method Bedside Commode Indwelling Catheter # Voids 1 ABP, PAP, CO, CI - Last Documented Arterial Blood Pressure 106/42 Pulmonary Artery Pressure 29/11 Cardiac Output 5.9 Cardiac Index 2.4 - Constitutional General appearance: Present: cooperative, no acute distress, obese - EENT Eyes: Present: normal appearance. Absent: scleral icterus - Neck Details: Neck is supple, no JVD, right IJ Cordis and [place] catheter in place and functioning. - Respiratory Details: Lung sounds are essentially clear to his bilateral upper lobes, diminished to his bilateral bases. No wheezes, rhonchi or crackles. Respirations are symmetrical and nonlabored. Oxygen saturation is 95% on 3 L nasal cannula. Achieving 1000 mL on his incentive spirometry. Left pleural and mediastinal chest tubes remain in place to low continuous wall suction -20 cm H2O. No air leak is present. 120 mL output of thin serosanguineous drainage in the last 8 hours and 450 mL since surgery. - Cardiovascular Details: Regular rhythm and rate. S1 and S2 present, negative for S3, gallop or murmur. Sternum is stable. Bedside telemetry showing normal sinus rhythm heart rate 66 BPM. Atrial and ventricular epicardial pacemaker wires in place and connected to backup bedside pacemaker generator on a VVI 50. No edema present. Right IJ Cordis with [place] catheter in place with current hemodynamics showing a cardiac output of 5.9, cardiac index 2.9, PA pressures 28/10, CVP 5 mmHg. Cardizem drip infusing at 5 mg per hour for radial artery prophylaxis. Knee- high FLOYD hose and sequential compression devices in place to his bilateral lower extremities. Right radial arterial line in place. Heart hugger is in place and he is demonstrating appropriate use. - Gastrointestinal Gastrointestinal Comment(s): Abdomen is soft, nontender and nondistended. Hypoactive bowel sounds present in all 4 abdominal quadrants. No guarding or rigidity. No organomegaly appreciated. Tolerating oral intake. - Genitourinary Genitourinary Comment(s): Alonzo catheter for accurate I&O. Draining clear ebony urine with 305 mL output last 8 hours. - Integumentary Integumentary Comment(s): Skin is warm and dry. No clubbing or cyanosis is present. Midline sternal incision is clean, dry and approximated. No drainage or redness is present. Dressing is clean, dry and intact. Left radial artery harvest sites clean, dry and approximated. No drainage or redness is present. KANDACE drain in place draining scant serosanguineous drainage. Bilateral lower extremity EVH sites are clean, dry and approximated. No drainage or redness is present. - Neurologic Neurologic: Present: CNII-XII intact - Musculoskeletal Musculoskeletal: Present: gait normal, generalized weakness, strength equal bilaterally - Psychiatric Psychiatric: Present: A&O x's 3, appropriate affect, intact judgment & insight - Allied health notes Allied health notes reviewed: nursing - Labs CBC & Chem 7: 09/20/20 03:54 09/20/20 03:54 Labs: Abnormal Lab Results - Last 24 Hours (Table) 11/13/20 11/14/20 11/15/20 Range/Units 13:42 08:26 08:52 RBC (4.30-5.90) m/uL Hgb (13.0-17.5) gm/dL Hct (39.0-53.0) % Plt Count (150-450) k/uL Neutrophils # (1.3-7.7) k/uL Lymphocytes # (1.0-4.8) k/uL PT (9.0-12.0) sec INR (<1.2) APTT (22.0-30.0) sec ABG pH (7.35-7.45) ABG pCO2 49 H (35-45) mmHg ABG pO2 411 H (83-108) mmHg ABG HCO3 28 H (21-25) mmol/L ABG Total CO2 29 H (19-24) mmol/L ABG O2 Saturation 99.9 H (94-97) % ABG Hematocrit (34.0-46.0) % ABG Potassium (3.4-4.5) mmol/L ABG Ionized Calcium (4.5-5.3) mg/dL ABG Glucose 103 H (75-99) mg/dL ABG Lactic Acid (0.5-1.6) mmol/L Hemoglobin 12.5 L (13.0-17.5) gm/dL Chloride (98-107) mmol/L Glucose (74-99) mg/dL POC Glucose (mg/dL) (75-99) mg/dL Calcium (8.4-10.2) mg/dL Magnesium (1.6-2.3) mg/dL Alkaline Phosphatase (38-126) U/L Total Protein (6.3-8.2) g/dL Albumin (3.5-5.0) g/dL Arterial Blood Potassium (3.4-4.5) mmol/L Arterial Blood Glucose 103 H (75-99) mg/dL Crossmatch See Detail See Detail 09/19/20 09/19/20 09/19/20 Range/Units 10:29 11:19 11:56 RBC (4.30-5.90) m/uL Hgb (13.0-17.5) gm/dL Hct (39.0-53.0) % Plt Count (150-450) k/uL Neutrophils # (1.3-7.7) k/uL Lymphocytes # (1.0-4.8) k/uL PT (9.0-12.0) sec INR (<1.2) APTT (22.0-30.0) sec ABG pH (7.35-7.45) ABG pCO2 49 H (35-45) mmHg ABG pO2 325 H 328 H (83-108) mmHg ABG HCO3 27 H (21-25) mmol/L ABG Total CO2 29 H 26 H 27 H (19-24) mmol/L ABG O2 Saturation 97.5 H 99.9 H 99.9 H (94-97) % ABG Hematocrit 30 L 32 L (34.0-46.0) % ABG Potassium 4.8 H 4.9 H (3.4-4.5) mmol/L ABG Ionized Calcium 4.1 L 4.3 L (4.5-5.3) mg/dL ABG Glucose 134 H 179 H 170 H (75-99) mg/dL ABG Lactic Acid 1.7 H (0.5-1.6) mmol/L Hemoglobin 12.0 L 9.8 L 10.3 L (13.0-17.5) gm/dL Chloride (98-107) mmol/L Glucose (74-99) mg/dL POC Glucose (mg/dL) (75-99) mg/dL Calcium (8.4-10.2) mg/dL Magnesium (1.6-2.3) mg/dL Alkaline Phosphatase (38-126) U/L Total Protein (6.3-8.2) g/dL Albumin (3.5-5.0) g/dL Arterial Blood Potassium 4.8 H 4.9 H (3.4-4.5) mmol/L Arterial Blood Glucose 134 H 179 H 170 H (75-99) mg/dL Crossmatch 09/19/20 09/19/20 09/19/20 Range/Units 13:19 13:54 13:55 RBC 3.27 L (4.30-5.90) m/uL Hgb 10.0 L D (13.0-17.5) gm/dL Hct 30.3 L (39.0-53.0) % Plt Count 73 L (150-450) k/uL Neutrophils # (1.3-7.7) k/uL Lymphocytes # 0.7 L (1.0-4.8) k/uL PT (9.0-12.0) sec INR (<1.2) APTT (22.0-30.0) sec ABG pH (7.35-7.45) ABG pCO2 (35-45) mmHg ABG pO2 >420 H (83-108) mmHg ABG HCO3 (21-25) mmol/L ABG Total CO2 26 H (19-24) mmol/L ABG O2 Saturation 100.0 H (94-97) % ABG Hematocrit 32 L (34.0-46.0) % ABG Potassium (3.4-4.5) mmol/L ABG Ionized Calcium 4.3 L (4.5-5.3) mg/dL ABG Glucose 136 H (75-99) mg/dL ABG Lactic Acid 1.9 H (0.5-1.6) mmol/L Hemoglobin 10.3 L (13.0-17.5) gm/dL Chloride (98-107) mmol/L Glucose (74-99) mg/dL POC Glucose (mg/dL) 130 H (75-99) mg/dL Calcium (8.4-10.2) mg/dL Magnesium (1.6-2.3) mg/dL Alkaline Phosphatase (38-126) U/L Total Protein (6.3-8.2) g/dL Albumin (3.5-5.0) g/dL Arterial Blood Potassium (3.4-4.5) mmol/L Arterial Blood Glucose 136 H (75-99) mg/dL Crossmatch 09/19/20 09/19/20 09/19/20 Range/Units 13:55 13:55 14:26 RBC (4.30-5.90) m/uL Hgb (13.0-17.5) gm/dL Hct (39.0-53.0) % Plt Count (150-450) k/uL Neutrophils # (1.3-7.7) k/uL Lymphocytes # (1.0-4.8) k/uL PT 12.5 H (9.0-12.0) sec INR 1.2 H (<1.2) APTT 32.1 H (22.0-30.0) sec ABG pH 7.33 L (7.35-7.45) ABG pCO2 48 H (35-45) mmHg ABG pO2 >400 H (83-108) mmHg ABG HCO3 (21-25) mmol/L ABG Total CO2 27 H (19-24) mmol/L ABG O2 Saturation 100.0 H (94-97) % ABG Hematocrit (34.0-46.0) % ABG Potassium (3.4-4.5) mmol/L ABG Ionized Calcium (4.5-5.3) mg/dL ABG Glucose (75-99) mg/dL ABG Lactic Acid (0.5-1.6) mmol/L Hemoglobin (13.0-17.5) gm/dL Chloride 109 H (98-107) mmol/L Glucose 121 H (74-99) mg/dL POC Glucose (mg/dL) (75-99) mg/dL Calcium 8.2 L (8.4-10.2) mg/dL Magnesium 2.4 H (1.6-2.3) mg/dL Alkaline Phosphatase 35 L (38-126) U/L Total Protein 4.8 L (6.3-8.2) g/dL Albumin 2.9 L (3.5-5.0) g/dL Arterial Blood Potassium (3.4-4.5) mmol/L Arterial Blood Glucose (75-99) mg/dL Crossmatch 09/19/20 09/19/20 09/19/20 Range/Units 14:26 15:30 15:36 RBC 3.41 L (4.30-5.90) m/uL Hgb 10.3 L (13.0-17.5) gm/dL Hct 31.5 L (39.0-53.0) % Plt Count 76 L (150-450) k/uL Neutrophils # (1.3-7.7) k/uL Lymphocytes # 0.9 L (1.0-4.8) k/uL PT (9.0-12.0) sec INR (<1.2) APTT (22.0-30.0) sec ABG pH (7.35-7.45) ABG pCO2 (35-45) mmHg ABG pO2 (83-108) mmHg ABG HCO3 (21-25) mmol/L ABG Total CO2 (19-24) mmol/L ABG O2 Saturation (94-97) % ABG Hematocrit (34.0-46.0) % ABG Potassium (3.4-4.5) mmol/L ABG Ionized Calcium (4.5-5.3) mg/dL ABG Glucose (75-99) mg/dL ABG Lactic Acid (0.5-1.6) mmol/L Hemoglobin (13.0-17.5) gm/dL Chloride (98-107) mmol/L Glucose (74-99) mg/dL POC Glucose (mg/dL) 125 H 119 H (75-99) mg/dL Calcium (8.4-10.2) mg/dL Magnesium (1.6-2.3) mg/dL Alkaline Phosphatase (38-126) U/L Total Protein (6.3-8.2) g/dL Albumin (3.5-5.0) g/dL Arterial Blood Potassium (3.4-4.5) mmol/L Arterial Blood Glucose (75-99) mg/dL Crossmatch 09/19/20 09/19/20 09/19/20 Range/Units 16:29 16:30 17:11 RBC (4.30-5.90) m/uL Hgb (13.0-17.5) gm/dL Hct (39.0-53.0) % Plt Count (150-450) k/uL Neutrophils # (1.3-7.7) k/uL Lymphocytes # (1.0-4.8) k/uL PT (9.0-12.0) sec INR (<1.2) APTT (22.0-30.0) sec ABG pH 7.29 L (7.35-7.45) ABG pCO2 54 H (35-45) mmHg ABG pO2 (83-108) mmHg ABG HCO3 26 H (21-25) mmol/L ABG Total CO2 28 H (19-24) mmol/L ABG O2 Saturation (94-97) % ABG Hematocrit (34.0-46.0) % ABG Potassium (3.4-4.5) mmol/L ABG Ionized Calcium (4.5-5.3) mg/dL ABG Glucose (75-99) mg/dL ABG Lactic Acid (0.5-1.6) mmol/L Hemoglobin (13.0-17.5) gm/dL Chloride (98-107) mmol/L Glucose (74-99) mg/dL POC Glucose (mg/dL) 129 H 129 H (75-99) mg/dL Calcium (8.4-10.2) mg/dL Magnesium (1.6-2.3) mg/dL Alkaline Phosphatase (38-126) U/L Total Protein (6.3-8.2) g/dL Albumin (3.5-5.0) g/dL Arterial Blood Potassium (3.4-4.5) mmol/L Arterial Blood Glucose (75-99) mg/dL Crossmatch 09/19/20 09/19/20 09/19/20 Range/Units 17:14 18:16 19:18 RBC (4.30-5.90) m/uL Hgb (13.0-17.5) gm/dL Hct (39.0-53.0) % Plt Count (150-450) k/uL Neutrophils # (1.3-7.7) k/uL Lymphocytes # (1.0-4.8) k/uL PT (9.0-12.0) sec INR (<1.2) APTT (22.0-30.0) sec ABG pH 7.29 L (7.35-7.45) ABG pCO2 54 H (35-45) mmHg ABG pO2 (83-108) mmHg ABG HCO3 26 H (21-25) mmol/L ABG Total CO2 28 H (19-24) mmol/L ABG O2 Saturation 97.2 H (94-97) % ABG Hematocrit (34.0-46.0) % ABG Potassium (3.4-4.5) mmol/L ABG Ionized Calcium (4.5-5.3) mg/dL ABG Glucose (75-99) mg/dL ABG Lactic Acid (0.5-1.6) mmol/L Hemoglobin (13.0-17.5) gm/dL Chloride (98-107) mmol/L Glucose (74-99) mg/dL POC Glucose (mg/dL) 117 H 141 H (75-99) mg/dL Calcium (8.4-10.2) mg/dL Magnesium (1.6-2.3) mg/dL Alkaline Phosphatase (38-126) U/L Total Protein (6.3-8.2) g/dL Albumin (3.5-5.0) g/dL Arterial Blood Potassium (3.4-4.5) mmol/L Arterial Blood Glucose (75-99) mg/dL Crossmatch 09/19/20 09/19/20 09/19/20 Range/Units 19:20 20:17 21:08 RBC 3.78 L (4.30-5.90) m/uL Hgb 11.5 L (13.0-17.5) gm/dL Hct 35.0 L (39.0-53.0) % Plt Count 89 L (150-450) k/uL Neutrophils # 9.0 H (1.3-7.7) k/uL Lymphocytes # 0.5 L (1.0-4.8) k/uL PT (9.0-12.0) sec INR (<1.2) APTT (22.0-30.0) sec ABG pH (7.35-7.45) ABG pCO2 (35-45) mmHg ABG pO2 (83-108) mmHg ABG HCO3 (21-25) mmol/L ABG Total CO2 (19-24) mmol/L ABG O2 Saturation (94-97) % ABG Hematocrit (34.0-46.0) % ABG Potassium (3.4-4.5) mmol/L ABG Ionized Calcium (4.5-5.3) mg/dL ABG Glucose (75-99) mg/dL ABG Lactic Acid (0.5-1.6) mmol/L Hemoglobin (13.0-17.5) gm/dL Chloride (98-107) mmol/L Glucose (74-99) mg/dL POC Glucose (mg/dL) 134 H 135 H (75-99) mg/dL Calcium (8.4-10.2) mg/dL Magnesium (1.6-2.3) mg/dL Alkaline Phosphatase (38-126) U/L Total Protein (6.3-8.2) g/dL Albumin (3.5-5.0) g/dL Arterial Blood Potassium (3.4-4.5) mmol/L Arterial Blood Glucose (75-99) mg/dL Crossmatch 09/19/20 09/20/20 09/20/20 Range/Units 22:52 00:00 02:28 RBC (4.30-5.90) m/uL Hgb (13.0-17.5) gm/dL Hct (39.0-53.0) % Plt Count (150-450) k/uL Neutrophils # (1.3-7.7) k/uL Lymphocytes # (1.0-4.8) k/uL PT (9.0-12.0) sec INR (<1.2) APTT (22.0-30.0) sec ABG pH (7.35-7.45) ABG pCO2 (35-45) mmHg ABG pO2 (83-108) mmHg ABG HCO3 (21-25) mmol/L ABG Total CO2 (19-24) mmol/L ABG O2 Saturation (94-97) % ABG Hematocrit (34.0-46.0) % ABG Potassium (3.4-4.5) mmol/L ABG Ionized Calcium (4.5-5.3) mg/dL ABG Glucose (75-99) mg/dL ABG Lactic Acid (0.5-1.6) mmol/L Hemoglobin (13.0-17.5) gm/dL Chloride (98-107) mmol/L Glucose (74-99) mg/dL POC Glucose (mg/dL) 143 H 143 H 142 H (75-99) mg/dL Calcium (8.4-10.2) mg/dL Magnesium (1.6-2.3) mg/dL Alkaline Phosphatase (38-126) U/L Total Protein (6.3-8.2) g/dL Albumin (3.5-5.0) g/dL Arterial Blood Potassium (3.4-4.5) mmol/L Arterial Blood Glucose (75-99) mg/dL Crossmatch 09/20/20 09/20/20 09/20/20 Range/Units 03:54 03:54 04:02 RBC 3.73 L (4.30-5.90) m/uL Hgb 11.2 L (13.0-17.5) gm/dL Hct 34.8 L (39.0-53.0) % Plt Count 93 L (150-450) k/uL Neutrophils # (1.3-7.7) k/uL Lymphocytes # (1.0-4.8) k/uL PT (9.0-12.0) sec INR (<1.2) APTT (22.0-30.0) sec ABG pH (7.35-7.45) ABG pCO2 (35-45) mmHg ABG pO2 (83-108) mmHg ABG HCO3 (21-25) mmol/L ABG Total CO2 (19-24) mmol/L ABG O2 Saturation (94-97) % ABG Hematocrit (34.0-46.0) % ABG Potassium (3.4-4.5) mmol/L ABG Ionized Calcium (4.5-5.3) mg/dL ABG Glucose (75-99) mg/dL ABG Lactic Acid (0.5-1.6) mmol/L Hemoglobin (13.0-17.5) gm/dL Chloride (98-107) mmol/L Glucose 120 H (74-99) mg/dL POC Glucose (mg/dL) 126 H (75-99) mg/dL Calcium 8.3 L (8.4-10.2) mg/dL Magnesium (1.6-2.3) mg/dL Alkaline Phosphatase (38-126) U/L Total Protein 5.5 L (6.3-8.2) g/dL Albumin 3.2 L (3.5-5.0) g/dL Arterial Blood Potassium (3.4-4.5) mmol/L Arterial Blood Glucose (75-99) mg/dL Crossmatch 09/20/20 Range/Units 07:01 RBC (4.30-5.90) m/uL Hgb (13.0-17.5) gm/dL Hct (39.0-53.0) % Plt Count (150-450) k/uL Neutrophils # (1.3-7.7) k/uL Lymphocytes # (1.0-4.8) k/uL PT (9.0-12.0) sec INR (<1.2) APTT (22.0-30.0) sec ABG pH (7.35-7.45) ABG pCO2 (35-45) mmHg ABG pO2 (83-108) mmHg ABG HCO3 (21-25) mmol/L ABG Total CO2 (19-24) mmol/L ABG O2 Saturation (94-97) % ABG Hematocrit (34.0-46.0) % ABG Potassium (3.4-4.5) mmol/L ABG Ionized Calcium (4.5-5.3) mg/dL ABG Glucose (75-99) mg/dL ABG Lactic Acid (0.5-1.6) mmol/L Hemoglobin (13.0-17.5) gm/dL Chloride (98-107) mmol/L Glucose (74-99) mg/dL POC Glucose (mg/dL) 131 H (75-99) mg/dL Calcium (8.4-10.2) mg/dL Magnesium (1.6-2.3) mg/dL Alkaline Phosphatase (38-126) U/L Total Protein (6.3-8.2) g/dL Albumin (3.5-5.0) g/dL Arterial Blood Potassium (3.4-4.5) mmol/L Arterial Blood Glucose (75-99) mg/dL Crossmatch - Imaging and Cardiology Chest x-ray: report reviewed, image reviewed Assessment and Plan Assessment: 1. Symptomatic multivessel coronary artery disease, status post triple vessel coronary artery bypass grafting surgery 2. Non-ST elevated myocardial infarction this admission 3. Preoperative new onset atrial fibrillation with RVR 4. History of hypertension 5. Diabetes mellitus type 2 6. Chronic ongoing tobacco abuse 7. History of hiatal hernia 8. History of sleep apnea 9. COPD with a preoperative FEV1 54% of predicted value 10. Postoperative acute blood loss anemia, expected Plan: 1. Continue to maximize medical therapy with aspirin, Plavix and beta randy. Will increase metoprolol tartrate as tolerated. 2. Discontinue IV nitroglycerin drip. 3. Wean O2 as tolerated. Continue to encourage use of incentive spirometry 10 times every hour while awake. Bronchodilators per pulmonology/critical care management. 4. Will monitor daily labs and chest x-rays. Electrolytes replacement per protocol. 5. GI/DVT prophylaxis. Protonix switched to by mouth. 6. Pain control with current medication regimen. Toradol has been added. 7. Diabetes/insulin management per primary care service. 8. Discontinue right IJ [place] catheter, keep right IJ Cordis and placed to continuous CVP monitoring. 9. We will keep the mediastinal and left pleural chest tubes in place for another 24 hours. 10. Keep Alonzo catheter for another 24 hours for strict accurate intake and output. 11. Daily weights using standup scale, no bed scale. 12. Discontinue Cardizem drip, start Norvasc 2.5 mg by mouth daily at noon for radial artery spasm prophylaxis. Please do not discontinue without discussing with cardiothoracic surgery service. 13. Keep atrial and ventricular epicardial pacemaker wires in place, grounded epicardial pacemaker wires. 14. More recommendations to follow based on patient's clinical course. Time with Patient: Greater than 30
[2020-09-20] MEDS: NON FORMULARY DRUG (Fluticasone/Umeclidin/Vilanter [Trelegy Ellipta 100-62.5-25] 1 EACH Bl INHALATION SCH (08:44)
[2020-09-20] MEDS ORDERED: MAGNESIUM HYDROXIDE 2,400 MG/10 ML CUP PO PRN (09:00)
[2020-09-20] MEDS ORDERED: PANTOPRAZOLE 40 MG/10 ML VIAL IVP SCH (09:00)
[2020-09-20] MEDS ORDERED: bisacodyL 10 MG SUPP RECTAL PRN (09:00)
[2020-09-20 09:09] LABS: Glucose,Whole Blood 185 mg/dL (75-99)
[2020-09-20] MEDS: PANTOPRAZOLE 40 MG TABLET PO SCH (10:36)
[2020-09-20 11:09] VITALS: BMI 33.2
[2020-09-20 11:27] LABS: Glucose,Whole Blood 150 mg/dL (75-99)
[2020-09-20 11:56] LABS: Glucose,Whole Blood 137 mg/dL (75-99)
[2020-09-20] MEDS ORDERED: amLODIPine 2.5 MG TAB PO SCH (12:00)
--- NOTE | 2020-09-20 12:42 | P.PN ---
Subjective Progress Note Date: 09/20/20 Patient is a 70-year-old male with a history of tobacco abuse, hypertension, prediabetes, and COPD who presented to the emergency department with complaints of chest pain. On arrival via EMS he received 2 nitroglycerin and aspirin and had a improvement in his chest pain. In the emergency department he underwent an extensive evaluation. Initial vital signs showed a heart rate of 134 and a blood pressure 142/87. Initial laboratory analysis demonstrated an elevated troponin at 0.086. He was admitted for further management of his new onset atrial fibrillation with rapid ventricular response and non-ST segment elevated myocardial infarction. He was placed on nitro for pain and blood pressure contr ol, Cardizem drip, and a heparin drip. His aspirin was continued. He was also started on a statin. His metformin was held and started on sliding scale insulin. Subsequently he converted to normal sinus rhythm and his Cardizem drip was discontinued. His troponin continued to rise to a max of 5.7. He was therefore urgently taken to cardiac catheterization which demonstrated calcified coronary arteries, chronically occluded right coronary artery with collaterals from the left, and critical stenosis in the LAD and a long segment. It was determined that he likely would need cardiac bypass. Echo with EF 45-50%, Carotid dopplers negative for ischemia, Proximal abdominal aortic aneurysm 3.0 cm. He underwent Tripple Vessel CABG on 09/19 he returned to the ICU. The patient was seen at the bedside on 09/20. He was in good spirits and reported feeling well aside from mild pleuritic chest discomfort at the site of the surgery. Denied palpitations, nausea, vomiting, or diaphoresis. Denied urinary complaints. General: Non-toxic, in no acute distress, appears stated age, obese HEENT: NC/AT, anicteric sclerae, moist conjunctiva, no lid-lag, PERRLA Cardiovascular: S1/S2 wnl, no murmurs, rubs, or gallops, chest hugger in place with multiple drains Lungs: Clear to auscultation, normal respiratory effort, no accessory muscle use Abdominal: Soft, non-tender, non-distended, no guarding, rebound, or rigidity Skin: Warm, dry Extremities: No edema or contractures Psychiatric: Alert and oriented to person, place and time, appropriate affect Neuro: CN II-XII grossly intact, Strength 4/5 in all 4 extremities, Speech intact, Sensation to light touch grossly intact throughout Non-ST segment elevated myocardial infarction with LAD disease in the setting of diabetes, systolic cardiomyopathy with ejection fraction 40% -s/p Triple vessel CABG on 09/19 -Cardio-thoracic and cardiology recommendations -Carotid Dopplers unremarkable -C/w ASA, statin, lopressor -Strict I and O, Daily weights Acute blood loss anemia, stable - anticipated outcome of surgery - transfuse as indicated - follow CBC Diabetes mellitus type 2 with hyperglycemia -Continue to hold all oral hypoglycemics -Insulin gtt as indicated -Follow blood sugars - A1c 6.6, Plan for discharge home back on metformin if hyperglycemia improved. If he need insulin short term family can help. Thrombocytopenia, stable -Low suspicion for HIT due to low T score -Continue to monitor CBC New-onset atrial fibrillation with rapid ventricular response -Resolved -Continue to monitor Abdominal aortic aneurysm 3 cm -Continue outpatient follow-up Hypertension, controlled -Continue with Cozaar and beta randy -Follow blood pressures Obesity with BMI 31.6 -Outpatient structured weight loss Tobacco abuse -Cessation -Nicotine replacement if needed we'll attempt to avoid DVT prophylaxis -Heparin subq Discussed with: Patient Anticipated discharge date: Home Anticipated discharge place: 4-5 days A total of 35 minutes was spent on the care of this complex patient more than 50% of the time was spent in counseling and care coordination. Objective - Vital Signs Vital signs: Vital Signs Temp 98.8 F 09/20/20 04:00 Pulse 66 09/20/20 11:39 Resp 29 H 09/20/20 07:00 BP 91/57 09/20/20 07:00 Pulse Ox 94 L 09/20/20 07:00 Intake & Output 09/19/20 09/20/20 09/20/20 18:59 06:59 18:59 Intake Total 372.435 828.815 119.733 Output Total 2550 770 50 Balance -2177.565 58.815 69.733 Weight 120.5 kg 120.5 kg Intake: IV 353.5 813 79 0.9 Sodium Chloride 38 Carrier Co/CI 110 20 Diltiazem 125 mg In 25 5 Sodium Chloride 0.9% 100 ml @ 5 MG/HR 5 mls/hr IV .Q24H [facility] Rx#:[id number] Lactated Ringers 1,000 ml 250 600 50 @ 50 mls/hr IV .Q20H [facility] Rx#:[id number] Nitroglycerin-D5w Pmx 50 7.5 5 mg In Dextrose/Water 1 250ml.bag @ 5 MCG/MIN 1.5 mls/hr IV .Q24H [facility] Rx#: [id number] pressure bag 93 9 Intake, IV Titration 18.935 15.815 40.733 Amount Insulin Regular 100 unit 15.815 15.183 In Sodium Chloride 0.9% 100 ml @ Per Protocol IV .Q0M [facility] Rx#:[id number] Nitroglycerin-D5w Pmx 50 25.55 mg In Dextrose/Water 1 250ml.bag @ 5 MCG/MIN 1.5 mls/hr IV .Q24H [facility] Rx#: [id number] propofoL 1,000 mg In 18.935 Empty Bag 1 bag @ Titrate IV .Q0M [facility] Rx#: [id number] Output: Chest Tube Drainage 160 250 30 Left Pleural/Mediastinal 160 250 30 Drainage 10 Left Wrist 10 Urine 880 520 20 Estimated Blood Loss 1500 Other: Voiding Method Bedside Commode Indwelling Catheter # Voids 1 ABP, PAP, CO, CI - Last Documented Arterial Blood Pressure 106/42 Pulmonary Artery Pressure 29/11 Cardiac Output 5.9 Cardiac Index 2.4 - Labs CBC & Chem 7: 09/20/20 03:54 09/20/20 03:54 Labs: Abnormal Lab Results - Last 24 Hours (Table) 09/18/20 09/19/20 09/19/20 Range/Units 08:26 08:52 10:29 RBC (4.30-5.90) m/uL Hgb (13.0-17.5) gm/dL Hct (39.0-53.0) % Plt Count (150-450) k/uL Neutrophils # (1.3-7.7) k/uL Lymphocytes # (1.0-4.8) k/uL PT (9.0-12.0) sec INR (<1.2) APTT (22.0-30.0) sec ABG pH (7.35-7.45) ABG pCO2 49 H 49 H (35-45) mmHg ABG pO2 411 H (83-108) mmHg ABG HCO3 28 H 27 H (21-25) mmol/L ABG Total CO2 29 H 29 H (19-24) mmol/L ABG O2 Saturation 99.9 H 97.5 H (94-97) % ABG Hematocrit (34.0-46.0) % ABG Potassium (3.4-4.5) mmol/L ABG Ionized Calcium (4.5-5.3) mg/dL ABG Glucose 103 H 134 H (75-99) mg/dL ABG Lactic Acid (0.5-1.6) mmol/L Hemoglobin 12.5 L 12.0 L (13.0-17.5) gm/dL Chloride (98-107) mmol/L Glucose (74-99) mg/dL POC Glucose (mg/dL) (75-99) mg/dL Calcium (8.4-10.2) mg/dL Magnesium (1.6-2.3) mg/dL Alkaline Phosphatase (38-126) U/L Total Protein (6.3-8.2) g/dL Albumin (3.5-5.0) g/dL Arterial Blood Potassium (3.4-4.5) mmol/L Arterial Blood Glucose 103 H 134 H (75-99) mg/dL Crossmatch See Detail 09/19/20 09/19/20 09/19/20 Range/Units 11:19 11:56 13:19 RBC (4.30-5.90) m/uL Hgb (13.0-17.5) gm/dL Hct (39.0-53.0) % Plt Count (150-450) k/uL Neutrophils # (1.3-7.7) k/uL Lymphocytes # (1.0-4.8) k/uL PT (9.0-12.0) sec INR (<1.2) APTT (22.0-30.0) sec ABG pH (7.35-7.45) ABG pCO2 (35-45) mmHg ABG pO2 325 H 328 H >420 H (83-108) mmHg ABG HCO3 (21-25) mmol/L ABG Total CO2 26 H 27 H 26 H (19-24) mmol/L ABG O2 Saturation 99.9 H 99.9 H 100.0 H (94-97) % ABG Hematocrit 30 L 32 L 32 L (34.0-46.0) % ABG Potassium 4.8 H 4.9 H (3.4-4.5) mmol/L ABG Ionized Calcium 4.1 L 4.3 L 4.3 L (4.5-5.3) mg/dL ABG Glucose 179 H 170 H 136 H (75-99) mg/dL ABG Lactic Acid 1.7 H 1.9 H (0.5-1.6) mmol/L Hemoglobin 9.8 L 10.3 L 10.3 L (13.0-17.5) gm/dL Chloride (98-107) mmol/L Glucose (74-99) mg/dL POC Glucose (mg/dL) (75-99) mg/dL Calcium (8.4-10.2) mg/dL Magnesium (1.6-2.3) mg/dL Alkaline Phosphatase (38-126) U/L Total Protein (6.3-8.2) g/dL Albumin (3.5-5.0) g/dL Arterial Blood Potassium 4.8 H 4.9 H (3.4-4.5) mmol/L Arterial Blood Glucose 179 H 170 H 136 H (75-99) mg/dL Crossmatch 09/19/20 09/19/20 09/19/20 Range/Units 13:54 13:55 13:55 RBC 3.27 L (4.30-5.90) m/uL Hgb 10.0 L D (13.0-17.5) gm/dL Hct 30.3 L (39.0-53.0) % Plt Count 73 L (150-450) k/uL Neutrophils # (1.3-7.7) k/uL Lymphocytes # 0.7 L (1.0-4.8) k/uL PT 12.5 H (9.0-12.0) sec INR 1.2 H (<1.2) APTT 32.1 H (22.0-30.0) sec ABG pH (7.35-7.45) ABG pCO2 (35-45) mmHg ABG pO2 (83-108) mmHg ABG HCO3 (21-25) mmol/L ABG Total CO2 (19-24) mmol/L ABG O2 Saturation (94-97) % ABG Hematocrit (34.0-46.0) % ABG Potassium (3.4-4.5) mmol/L ABG Ionized Calcium (4.5-5.3) mg/dL ABG Glucose (75-99) mg/dL ABG Lactic Acid (0.5-1.6) mmol/L Hemoglobin (13.0-17.5) gm/dL Chloride (98-107) mmol/L Glucose (74-99) mg/dL POC Glucose (mg/dL) 130 H (75-99) mg/dL Calcium (8.4-10.2) mg/dL Magnesium (1.6-2.3) mg/dL Alkaline Phosphatase (38-126) U/L Total Protein (6.3-8.2) g/dL Albumin (3.5-5.0) g/dL Arterial Blood Potassium (3.4-4.5) mmol/L Arterial Blood Glucose (75-99) mg/dL Crossmatch 09/19/20 09/19/20 09/19/20 Range/Units 13:55 14:26 14:26 RBC (4.30-5.90) m/uL Hgb (13.0-17.5) gm/dL Hct (39.0-53.0) % Plt Count (150-450) k/uL Neutrophils # (1.3-7.7) k/uL Lymphocytes # (1.0-4.8) k/uL PT (9.0-12.0) sec INR (<1.2) APTT (22.0-30.0) sec ABG pH 7.33 L (7.35-7.45) ABG pCO2 48 H (35-45) mmHg ABG pO2 >400 H (83-108) mmHg ABG HCO3 (21-25) mmol/L ABG Total CO2 27 H (19-24) mmol/L ABG O2 Saturation 100.0 H (94-97) % ABG Hematocrit (34.0-46.0) % ABG Potassium (3.4-4.5) mmol/L ABG Ionized Calcium (4.5-5.3) mg/dL ABG Glucose (75-99) mg/dL ABG Lactic Acid (0.5-1.6) mmol/L Hemoglobin (13.0-17.5) gm/dL Chloride 109 H (98-107) mmol/L Glucose 121 H (74-99) mg/dL POC Glucose (mg/dL) 125 H (75-99) mg/dL Calcium 8.2 L (8.4-10.2) mg/dL Magnesium 2.4 H (1.6-2.3) mg/dL Alkaline Phosphatase 35 L (38-126) U/L Total Protein 4.8 L (6.3-8.2) g/dL Albumin 2.9 L (3.5-5.0) g/dL Arterial Blood Potassium (3.4-4.5) mmol/L Arterial Blood Glucose (75-99) mg/dL Crossmatch 09/19/20 09/19/20 09/19/20 Range/Units 15:30 15:36 16:29 RBC 3.41 L (4.30-5.90) m/uL Hgb 10.3 L (13.0-17.5) gm/dL Hct 31.5 L (39.0-53.0) % Plt Count 76 L (150-450) k/uL Neutrophils # (1.3-7.7) k/uL Lymphocytes # 0.9 L (1.0-4.8) k/uL PT (9.0-12.0) sec INR (<1.2) APTT (22.0-30.0) sec ABG pH (7.35-7.45) ABG pCO2 (35-45) mmHg ABG pO2 (83-108) mmHg ABG HCO3 (21-25) mmol/L ABG Total CO2 (19-24) mmol/L ABG O2 Saturation (94-97) % ABG Hematocrit (34.0-46.0) % ABG Potassium (3.4-4.5) mmol/L ABG Ionized Calcium (4.5-5.3) mg/dL ABG Glucose (75-99) mg/dL ABG Lactic Acid (0.5-1.6) mmol/L Hemoglobin (13.0-17.5) gm/dL Chloride (98-107) mmol/L Glucose (74-99) mg/dL POC Glucose (mg/dL) 119 H 129 H (75-99) mg/dL Calcium (8.4-10.2) mg/dL Magnesium (1.6-2.3) mg/dL Alkaline Phosphatase (38-126) U/L Total Protein (6.3-8.2) g/dL Albumin (3.5-5.0) g/dL Arterial Blood Potassium (3.4-4.5) mmol/L Arterial Blood Glucose (75-99) mg/dL Crossmatch 09/19/20 09/19/20 09/19/20 Range/Units 16:30 17:11 17:14 RBC (4.30-5.90) m/uL Hgb (13.0-17.5) gm/dL Hct (39.0-53.0) % Plt Count (150-450) k/uL Neutrophils # (1.3-7.7) k/uL Lymphocytes # (1.0-4.8) k/uL PT (9.0-12.0) sec INR (<1.2) APTT (22.0-30.0) sec ABG pH 7.29 L 7.29 L (7.35-7.45) ABG pCO2 54 H 54 H (35-45) mmHg ABG pO2 (83-108) mmHg ABG HCO3 26 H 26 H (21-25) mmol/L ABG Total CO2 28 H 28 H (19-24) mmol/L ABG O2 Saturation 97.2 H (94-97) % ABG Hematocrit (34.0-46.0) % ABG Potassium (3.4-4.5) mmol/L ABG Ionized Calcium (4.5-5.3) mg/dL ABG Glucose (75-99) mg/dL ABG Lactic Acid (0.5-1.6) mmol/L Hemoglobin (13.0-17.5) gm/dL Chloride (98-107) mmol/L Glucose (74-99) mg/dL POC Glucose (mg/dL) 129 H (75-99) mg/dL Calcium (8.4-10.2) mg/dL Magnesium (1.6-2.3) mg/dL Alkaline Phosphatase (38-126) U/L Total Protein (6.3-8.2) g/dL Albumin (3.5-5.0) g/dL Arterial Blood Potassium (3.4-4.5) mmol/L Arterial Blood Glucose (75-99) mg/dL Crossmatch 09/19/20 09/19/20 09/19/20 Range/Units 18:16 19:18 19:20 RBC 3.78 L (4.30-5.90) m/uL Hgb 11.5 L (13.0-17.5) gm/dL Hct 35.0 L (39.0-53.0) % Plt Count 89 L (150-450) k/uL Neutrophils # 9.0 H (1.3-7.7) k/uL Lymphocytes # 0.5 L (1.0-4.8) k/uL PT (9.0-12.0) sec INR (<1.2) APTT (22.0-30.0) sec ABG pH (7.35-7.45) ABG pCO2 (35-45) mmHg ABG pO2 (83-108) mmHg ABG HCO3 (21-25) mmol/L ABG Total CO2 (19-24) mmol/L ABG O2 Saturation (94-97) % ABG Hematocrit (34.0-46.0) % ABG Potassium (3.4-4.5) mmol/L ABG Ionized Calcium (4.5-5.3) mg/dL ABG Glucose (75-99) mg/dL ABG Lactic Acid (0.5-1.6) mmol/L Hemoglobin (13.0-17.5) gm/dL Chloride (98-107) mmol/L Glucose (74-99) mg/dL POC Glucose (mg/dL) 117 H 141 H (75-99) mg/dL Calcium (8.4-10.2) mg/dL Magnesium (1.6-2.3) mg/dL Alkaline Phosphatase (38-126) U/L Total Protein (6.3-8.2) g/dL Albumin (3.5-5.0) g/dL Arterial Blood Potassium (3.4-4.5) mmol/L Arterial Blood Glucose (75-99) mg/dL Crossmatch 09/19/20 09/19/20 09/19/20 Range/Units 20:17 21:08 22:52 RBC (4.30-5.90) m/uL Hgb (13.0-17.5) gm/dL Hct (39.0-53.0) % Plt Count (150-450) k/uL Neutrophils # (1.3-7.7) k/uL Lymphocytes # (1.0-4.8) k/uL PT (9.0-12.0) sec INR (<1.2) APTT (22.0-30.0) sec ABG pH (7.35-7.45) ABG pCO2 (35-45) mmHg ABG pO2 (83-108) mmHg ABG HCO3 (21-25) mmol/L ABG Total CO2 (19-24) mmol/L ABG O2 Saturation (94-97) % ABG Hematocrit (34.0-46.0) % ABG Potassium (3.4-4.5) mmol/L ABG Ionized Calcium (4.5-5.3) mg/dL ABG Glucose (75-99) mg/dL ABG Lactic Acid (0.5-1.6) mmol/L Hemoglobin (13.0-17.5) gm/dL Chloride (98-107) mmol/L Glucose (74-99) mg/dL POC Glucose (mg/dL) 134 H 135 H 143 H (75-99) mg/dL Calcium (8.4-10.2) mg/dL Magnesium (1.6-2.3) mg/dL Alkaline Phosphatase (38-126) U/L Total Protein (6.3-8.2) g/dL Albumin (3.5-5.0) g/dL Arterial Blood Potassium (3.4-4.5) mmol/L Arterial Blood Glucose (75-99) mg/dL Crossmatch 09/20/20 09/20/20 09/20/20 Range/Units 00:00 02:28 03:54 RBC 3.73 L (4.30-5.90) m/uL Hgb 11.2 L (13.0-17.5) gm/dL Hct 34.8 L (39.0-53.0) % Plt Count 93 L (150-450) k/uL Neutrophils # (1.3-7.7) k/uL Lymphocytes # (1.0-4.8) k/uL PT (9.0-12.0) sec INR (<1.2) APTT (22.0-30.0) sec ABG pH (7.35-7.45) ABG pCO2 (35-45) mmHg ABG pO2 (83-108) mmHg ABG HCO3 (21-25) mmol/L ABG Total CO2 (19-24) mmol/L ABG O2 Saturation (94-97) % ABG Hematocrit (34.0-46.0) % ABG Potassium (3.4-4.5) mmol/L ABG Ionized Calcium (4.5-5.3) mg/dL ABG Glucose (75-99) mg/dL ABG Lactic Acid (0.5-1.6) mmol/L Hemoglobin (13.0-17.5) gm/dL Chloride (98-107) mmol/L Glucose (74-99) mg/dL POC Glucose (mg/dL) 143 H 142 H (75-99) mg/dL Calcium (8.4-10.2) mg/dL Magnesium (1.6-2.3) mg/dL Alkaline Phosphatase (38-126) U/L Total Protein (6.3-8.2) g/dL Albumin (3.5-5.0) g/dL Arterial Blood Potassium (3.4-4.5) mmol/L Arterial Blood Glucose (75-99) mg/dL Crossmatch 09/20/20 09/20/20 09/20/20 Range/Units 03:54 04:02 07:01 RBC (4.30-5.90) m/uL Hgb (13.0-17.5) gm/dL Hct (39.0-53.0) % Plt Count (150-450) k/uL Neutrophils # (1.3-7.7) k/uL Lymphocytes # (1.0-4.8) k/uL PT (9.0-12.0) sec INR (<1.2) APTT (22.0-30.0) sec ABG pH (7.35-7.45) ABG pCO2 (35-45) mmHg ABG pO2 (83-108) mmHg ABG HCO3 (21-25) mmol/L ABG Total CO2 (19-24) mmol/L ABG O2 Saturation (94-97) % ABG Hematocrit (34.0-46.0) % ABG Potassium (3.4-4.5) mmol/L ABG Ionized Calcium (4.5-5.3) mg/dL ABG Glucose (75-99) mg/dL ABG Lactic Acid (0.5-1.6) mmol/L Hemoglobin (13.0-17.5) gm/dL Chloride (98-107) mmol/L Glucose 120 H (74-99) mg/dL POC Glucose (mg/dL) 126 H 131 H (75-99) mg/dL Calcium 8.3 L (8.4-10.2) mg/dL Magnesium (1.6-2.3) mg/dL Alkaline Phosphatase (38-126) U/L Total Protein 5.5 L (6.3-8.2) g/dL Albumin 3.2 L (3.5-5.0) g/dL Arterial Blood Potassium (3.4-4.5) mmol/L Arterial Blood Glucose (75-99) mg/dL Crossmatch 09/20/20 09/20/20 09/20/20 Range/Units 08:49 11:25 11:54 RBC (4.30-5.90) m/uL Hgb (13.0-17.5) gm/dL Hct (39.0-53.0) % Plt Count (150-450) k/uL Neutrophils # (1.3-7.7) k/uL Lymphocytes # (1.0-4.8) k/uL PT (9.0-12.0) sec INR (<1.2) APTT (22.0-30.0) sec ABG pH (7.35-7.45) ABG pCO2 (35-45) mmHg ABG pO2 (83-108) mmHg ABG HCO3 (21-25) mmol/L ABG Total CO2 (19-24) mmol/L ABG O2 Saturation (94-97) % ABG Hematocrit (34.0-46.0) % ABG Potassium (3.4-4.5) mmol/L ABG Ionized Calcium (4.5-5.3) mg/dL ABG Glucose (75-99) mg/dL ABG Lactic Acid (0.5-1.6) mmol/L Hemoglobin (13.0-17.5) gm/dL Chloride (98-107) mmol/L Glucose (74-99) mg/dL POC Glucose (mg/dL) 185 H 150 H 137 H (75-99) mg/dL Calcium (8.4-10.2) mg/dL Magnesium (1.6-2.3) mg/dL Alkaline Phosphatase (38-126) U/L Total Protein (6.3-8.2) g/dL Albumin (3.5-5.0) g/dL Arterial Blood Potassium (3.4-4.5) mmol/L Arterial Blood Glucose (75-99) mg/dL Crossmatch
[2020-09-20 13:52] LABS: Glucose,Whole Blood 184 mg/dL (75-99)
[2020-09-20 15:08] LABS: Glucose,Whole Blood 178 mg/dL (75-99)
[2020-09-20 16:22] LABS: Glucose,Whole Blood 172 mg/dL (75-99)
--- NOTE | 2020-09-20 16:27 | P.PN ---
Subjective Progress Note Date: 09/20/20 70-year-old male patient post non-STEMI, remains in the intensive care unit and the patient is being seen in follow-up today. The patient has diabetes mellitus, hypertension, COPD and history of chronic smoking. Cardiac catheterization was done and the patient was found to have significant coronary artery disease and the patient underwent an urgent cardiac revascularization surgery and the patient underwent EGAN to LAD, SVG to RCA, and left radial artery to OM. The patient was subsequently brought into the intensive care units. Hemodynamically, the patient had a cardiac index of 2.1 and output of 5.0. The patient was sedated with propofol. The patient was on a mechanical ventilator in addition to a Cardizem drip at 5 mg an hour, nitroglycerin drip and lactated Ringer that was running at 50 mL an hour. The patient was gradually weaned off the mechanical ventilator per protocol and the patient was extubated and the patient was switched to nasal cannula. Doing well. Awake and alert. On today's evaluation, the patient is awake and alert. The patient is off the Cardizem drip. The patient is off the nitroglycerin drip. The patient is on no pressors. The patient is on lactated Ringer at the rate of 40 mL an hour. The patient is also on insulin drip at 4 units an hour. The patient on 3 L of oxygen by nasal cannula with pulse ox of 95%. Heart rhythm is sinus. Pacemaker backup VVI at 40. No other issues for now. His emanating. Chest x- ray was reviewed. Chest tubes are all in place. Objective - Vital Signs Vital signs: Vital Signs Temp 98.8 F 09/20/20 04:00 Pulse 70 09/20/20 16:15 Resp 29 H 09/20/20 07:00 BP 91/57 09/20/20 07:00 Pulse Ox 94 L 09/20/20 07:00 Intake & Output 09/19/20 09/20/20 09/20/20 18:59 06:59 18:59 Intake Total 372.435 828.815 129.799 Output Total 2550 770 50 Balance -2177.565 58.815 79.799 Weight 120.5 kg 120.5 kg Intake: IV 353.5 813 79 0.9 Sodium Chloride 38 Carrier Co/CI 110 20 Diltiazem 125 mg In 25 5 Sodium Chloride 0.9% 100 ml @ 5 MG/HR 5 mls/hr IV .Q24H [facility] Rx#:[id number] Lactated Ringers 1,000 ml 250 600 50 @ 50 mls/hr IV .Q20H [facility] Rx#:[id number] Nitroglycerin-D5w Pmx 50 7.5 5 mg In Dextrose/Water 1 250ml.bag @ 5 MCG/MIN 1.5 mls/hr IV .Q24H [facility] Rx#: [id number] pressure bag 93 9 Intake, IV Titration 18.935 15.815 50.799 Amount Insulin Regular 100 unit 15.815 25.249 In Sodium Chloride 0.9% 100 ml @ Per Protocol IV .Q0M [facility] Rx#:[id number] Nitroglycerin-D5w Pmx 50 25.55 mg In Dextrose/Water 1 250ml.bag @ 5 MCG/MIN 1.5 mls/hr IV .Q24H [facility] Rx#: [id number] propofoL 1,000 mg In 18.935 Empty Bag 1 bag @ Titrate IV .Q0M [facility] Rx#: [id number] Output: Chest Tube Drainage 160 250 30 Left Pleural/Mediastinal 160 250 30 Drainage 10 Left Wrist 10 Urine 880 520 20 Estimated Blood Loss 1500 Other: Voiding Method Bedside Commode Indwelling Catheter # Voids 1 ABP, PAP, CO, CI - Last Documented Arterial Blood Pressure 106/42 Pulmonary Artery Pressure 29/11 Cardiac Output 5.9 Cardiac Index 2.4 - Exam - Constitutional General appearance: Present: cooperative, no acute distress, obese - EENT Eyes: Present: normal appearance. Absent: scleral icterus - Neck Details: Neck is supple, no JVD, right IJ Cordis and Timberlake-Colt catheter in place and functioning. - Respiratory Details: Lung sounds are essentially clear to his bilateral upper lobes, diminished to his bilateral bases. No wheezes, rhonchi or crackles. Respirations are symmetrical and nonlabored. Oxygen saturation is 95% on 3 L nasal cannula. Achieving 1000 mL on his incentive spirometry. Left pleural and mediastinal chest tubes remain in place to low continuous wall suction -20 cm H2O. No air leak is present. 120 mL output of thin serosanguineous drainage in the last 8 hours and 450 mL since surgery. - Cardiovascular Details: Regular rhythm and rate. S1 and S2 present, negative for S3, gallop or murmur. Sternum is stable. Bedside telemetry showing normal sinus rhythm heart rate 66 BPM. Atrial and ventricular epicardial pacemaker wires in place and connected to backup bedside pacemaker generator on a VVI 50. No edema present. Right IJ Cordis with Timberlake-Colt catheter in place with current hemodynamics showing a cardiac output of 5.9, cardiac index 2.9, PA pressures 28/10, CVP 5 mmHg. Cardi zem drip infusing at 5 mg per hour for radial artery prophylaxis. Knee-high FLOYD hose and sequential compression devices in place to his bilateral lower extremities. Right radial arterial line in place. Heart hugger is in place and he is demonstrating appropriate use. - Gastrointestinal Gastrointestinal Comment(s): Abdomen is soft, nontender and nondistended. Hypoactive bowel sounds present in all 4 abdominal quadrants. No guarding or rigidity. No organomegaly appreciated. Tolerating oral intake. - Genitourinary Genitourinary Comment(s): Alonzo catheter for accurate I&O. Draining clear ebony urine with 305 mL output last 8 hours. - Integumentary Integumentary Comment(s): Skin is warm and dry. No clubbing or cyanosis is present. Midline sternal incision is clean, dry and approximated. No drainage or redness is present. Dressing is clean, dry and intact. Left radial artery harvest sites clean, dry and approximated. No drainage or redness is present. KANDACE drain in place draining scant serosanguineous drainage. Bilateral lower extremity EVH sites are clean, dry and approximated. No drainage or redness is present. - Neurologic Neurologic: Present: CNII-XII intact - Musculoskeletal Musculoskeletal: Present: gait normal, generalized weakness, strength equal bilaterally - Psychiatric Psychiatric: Present: A&O x's 3, appropriate affect, intact judgment & insight - Allied health notes - Labs CBC & Chem 7: 09/20/20 03:54 09/20/20 03:54 Labs: Abnormal Lab Results - Last 24 Hours (Table) 09/18/20 09/19/20 09/19/20 Range/Units 08:26 16:29 16:30 RBC (4.30-5.90) m/uL Hgb (13.0-17.5) gm/dL Hct (39.0-53.0) % Plt Count (150-450) k/uL Neutrophils # (1.3-7.7) k/uL Lymphocytes # (1.0-4.8) k/uL ABG pH 7.29 L (7.35-7.45) ABG pCO2 54 H (35-45) mmHg ABG HCO3 26 H (21-25) mmol/L ABG Total CO2 28 H (19-24) mmol/L ABG O2 Saturation (94-97) % Glucose (74-99) mg/dL POC Glucose (mg/dL) 129 H (75-99) mg/dL Calcium (8.4-10.2) mg/dL Total Protein (6.3-8.2) g/dL Albumin (3.5-5.0) g/dL Crossmatch See Detail 09/19/20 09/19/20 09/19/20 Range/Units 17:11 17:14 18:16 RBC (4.30-5.90) m/uL Hgb (13.0-17.5) gm/dL Hct (39.0-53.0) % Plt Count (150-450) k/uL Neutrophils # (1.3-7.7) k/uL Lymphocytes # (1.0-4.8) k/uL ABG pH 7.29 L (7.35-7.45) ABG pCO2 54 H (35-45) mmHg ABG HCO3 26 H (21-25) mmol/L ABG Total CO2 28 H (19-24) mmol/L ABG O2 Saturation 97.2 H (94-97) % Glucose (74-99) mg/dL POC Glucose (mg/dL) 129 H 117 H (75-99) mg/dL Calcium (8.4-10.2) mg/dL Total Protein (6.3-8.2) g/dL Albumin (3.5-5.0) g/dL Crossmatch 09/19/20 09/19/20 09/19/20 Range/Units 19:18 19:20 20:17 RBC 3.78 L (4.30-5.90) m/uL Hgb 11.5 L (13.0-17.5) gm/dL Hct 35.0 L (39.0-53.0) % Plt Count 89 L (150-450) k/uL Neutrophils # 9.0 H (1.3-7.7) k/uL Lymphocytes # 0.5 L (1.0-4.8) k/uL ABG pH (7.35-7.45) ABG pCO2 (35-45) mmHg ABG HCO3 (21-25) mmol/L ABG Total CO2 (19-24) mmol/L ABG O2 Saturation (94-97) % Glucose (74-99) mg/dL POC Glucose (mg/dL) 141 H 134 H (75-99) mg/dL Calcium (8.4-10.2) mg/dL Total Protein (6.3-8.2) g/dL Albumin (3.5-5.0) g/dL Crossmatch 09/19/20 09/19/20 09/20/20 Range/Units 21:08 22:52 00:00 RBC (4.30-5.90) m/uL Hgb (13.0-17.5) gm/dL Hct (39.0-53.0) % Plt Count (150-450) k/uL Neutrophils # (1.3-7.7) k/uL Lymphocytes # (1.0-4.8) k/uL ABG pH (7.35-7.45) ABG pCO2 (35-45) mmHg ABG HCO3 (21-25) mmol/L ABG Total CO2 (19-24) mmol/L ABG O2 Saturation (94-97) % Glucose (74-99) mg/dL POC Glucose (mg/dL) 135 H 143 H 143 H (75-99) mg/dL Calcium (8.4-10.2) mg/dL Total Protein (6.3-8.2) g/dL Albumin (3.5-5.0) g/dL Crossmatch 09/20/20 09/20/20 09/20/20 Range/Units 02:28 03:54 03:54 RBC 3.73 L (4.30-5.90) m/uL Hgb 11.2 L (13.0-17.5) gm/dL Hct 34.8 L (39.0-53.0) % Plt Count 93 L (150-450) k/uL Neutrophils # (1.3-7.7) k/uL Lymphocytes # (1.0-4.8) k/uL ABG pH (7.35-7.45) ABG pCO2 (35-45) mmHg ABG HCO3 (21-25) mmol/L ABG Total CO2 (19-24) mmol/L ABG O2 Saturation (94-97) % Glucose 120 H (74-99) mg/dL POC Glucose (mg/dL) 142 H (75-99) mg/dL Calcium 8.3 L (8.4-10.2) mg/dL Total Protein 5.5 L (6.3-8.2) g/dL Albumin 3.2 L (3.5-5.0) g/dL Crossmatch 09/20/20 09/20/20 09/20/20 Range/Units 04:02 07:01 08:49 RBC (4.30-5.90) m/uL Hgb (13.0-17.5) gm/dL Hct (39.0-53.0) % Plt Count (150-450) k/uL Neutrophils # (1.3-7.7) k/uL Lymphocytes # (1.0-4.8) k/uL ABG pH (7.35-7.45) ABG pCO2 (35-45) mmHg ABG HCO3 (21-25) mmol/L ABG Total CO2 (19-24) mmol/L ABG O2 Saturation (94-97) % Glucose (74-99) mg/dL POC Glucose (mg/dL) 126 H 131 H 185 H (75-99) mg/dL Calcium (8.4-10.2) mg/dL Total Protein (6.3-8.2) g/dL Albumin (3.5-5.0) g/dL Crossmatch 09/20/20 09/20/20 09/20/20 Range/Units 11:25 11:54 13:48 RBC (4.30-5.90) m/uL Hgb (13.0-17.5) gm/dL Hct (39.0-53.0) % Plt Count (150-450) k/uL Neutrophils # (1.3-7.7) k/uL Lymphocytes # (1.0-4.8) k/uL ABG pH (7.35-7.45) ABG pCO2 (35-45) mmHg ABG HCO3 (21-25) mmol/L ABG Total CO2 (19-24) mmol/L ABG O2 Saturation (94-97) % Glucose (74-99) mg/dL POC Glucose (mg/dL) 150 H 137 H 184 H (75-99) mg/dL Calcium (8.4-10.2) mg/dL Total Protein (6.3-8.2) g/dL Albumin (3.5-5.0) g/dL Crossmatch 09/20/20 09/20/20 Range/Units 15:06 16:20 RBC (4.30-5.90) m/uL Hgb (13.0-17.5) gm/dL Hct (39.0-53.0) % Plt Count (150-450) k/uL Neutrophils # (1.3-7.7) k/uL Lymphocytes # (1.0-4.8) k/uL ABG pH (7.35-7.45) ABG pCO2 (35-45) mmHg ABG HCO3 (21-25) mmol/L ABG Total CO2 (19-24) mmol/L ABG O2 Saturation (94-97) % Glucose (74-99) mg/dL POC Glucose (mg/dL) 178 H 172 H (75-99) mg/dL Calcium (8.4-10.2) mg/dL Total Protein (6.3-8.2) g/dL Albumin (3.5-5.0) g/dL Crossmatch Assessment and Plan Plan: 1 Non-ST segment elevation myocardial infarction with significant triple-vessel disease. Status post coronary revascularization with EGAN to the LAD, left radial arterial graft to the obtuse marginal branch, saphenous vein graft to the RCA. Postoperative day #1. The patient is hemodynamically stable on no pressors. The patient on a combination of aspirin and Plavix and beta blockers. IV nitroglycerin has been discontinued. 2 post thoracotomy, and the patient was weaned off the mechanical ventilator and the patient was extubated to nasal cannula. Chest tubes remain in place. The chest x-ray was reviewed from today. Output was noted. We'll keep the chest tube in place. 3 new-onset atrial fibrillation with rapid ventricular response, currently in sinus rhythm 4 Diabetes mellitus, type II 5 COPD secondary to Chronic tobacco dependence and a preop FEV1 of 54% of p redicted 6 Hypertension 7 obstructive sleep apnea. 8 hiatal hernia Plan Keep the chest tubes in place for now. Review of the Timberlake-Colt catheter. Keep the Alonzo catheter in place. Ambulate in the hallway. No pressors for now. Continue to use of incentive spirometer. Continue insulin for blood sugar control. The patient is on insulin drip at 4 units an hour. Wean down the FiO2 the patient is currently on 3 L per minute nasal cannula. We'll continue to follow and the patient will be kept in the
[2020-09-20] MEDS: LACTATED RINGERS 1,000 ML IV SCH (16:35)
[2020-09-20 19:31] LABS: Glucose,Whole Blood 149 mg/dL (75-99)
[2020-09-20] MEDS: ATORVASTATIN 80 MG TAB PO SCH (20:24)
[2020-09-20] MEDS: SENNOSIDES-DOCUSATE SODIUM 1 EACH TAB PO SCH (20:25)
[2020-09-20] MEDS: amLODIPine 2.5 MG TAB PO SCH (20:26)
[2020-09-20] MEDS: INSULIN REGULAR 100 UNIT in SODIUM CHLORIDE 0.9% 100 ML IV SCH (20:51)
[2020-09-20 21:02] LABS: Glucose,Whole Blood 147 mg/dL (75-99)
[2020-09-20] MEDS: DEXTROSE 5% IN WATER 100 ML with AMIODARONE 150 MG IV PRN (21:58)
[2020-09-20 23:00] LABS: Glucose,Whole Blood 120 mg/dL (75-99)
[2020-09-21] MEDS: DEXTROSE 5% IN WATER 100 ML with AMIODARONE 150 MG IV PRN ×2 (00:26→06:42)
[2020-09-21 00:33] LABS: Glucose,Whole Blood 131 mg/dL (75-99)
[2020-09-21] MEDS: ALBUMIN HUMAN 5% 250 ML in EMPTY BAG 1 BAG IVPB PRN ×5 (01:29→11:06)
[2020-09-21 02:45] LABS: Glucose,Whole Blood 186 mg/dL (75-99)
[2020-09-21] MEDS: AMIODARONE 300 MG in DEXTROSE 5% IN WATER 250 ML IV PRN ×4 (03:33→15:55)
[2020-09-21] MEDS: HEPARIN SODIUM,PORCINE 5,000 UNIT/ML 1 ML VIAL SQ SCH ×3 (04:47→21:00)
[2020-09-21 05:19] LABS: Glucose,Whole Blood 99 mg/dL (75-99)
[2020-09-21] MEDS: HYDROcodone/APAP 5-325MG 1 EACH TAB PO PRN ×2 (05:31→12:29)
[2020-09-21 05:32] LABS: Basophils % (A) 0 %; Eosinophils # (A) 0.2 k/uL (0-0.7); Eosinophils % (A) 2 %; HCT 30.6 % (39.0-53.0); HGB 10.3 gm/dL (13.0-17.5); Lymphocytes # (A) 1.3 k/uL (1.0-4.8); Lymphocytes % (A) 14 %; MCH 31.5 pg (25.0-35.0); MCHC 33.6 g/dL (31.0-37.0); MCV 93.7 fL (80.0-100.0); Mean Platelet Volume 10.4; Monocytes # (A) 0.6 k/uL (0-1.0); Monocytes % (A) 7 %; Neutrophils # (A) 7.2 k/uL (1.3-7.7); Neutrophils % (A) 76 %; RBC 3.27 m/uL (4.30-5.90); RDW 13.2 % (11.5-15.5); WBC 9.5 k/uL (3.8-10.6)
[2020-09-21] MEDS: KETOROLAC 15 MG/ML 1 ML VIAL IVP SCH (05:32)
[2020-09-21 05:37] LABS: Platelet Count 70 k/uL (150-450)
[2020-09-21 06:04] LABS: Albumin 3.3 g/dL (3.5-5.0); Calcium 8.3 mg/dL (8.4-10.2); Potassium 4.1 mmol/L (3.5-5.1); Total Protein 5.4 g/dL (6.3-8.2)
[2020-09-21 06:17] LABS: Glucose,Whole Blood 124 mg/dL (75-99)
[2020-09-21] MEDS: PANTOPRAZOLE 40 MG TABLET PO SCH (06:22)
[2020-09-21 07:26] LABS: Glucose,Whole Blood 166 mg/dL (75-99)
--- NOTE | 2020-09-21 07:45 | PN ---
PROGRESS NOTE Mr. Lindsey is a 70-year-old male with a known history of chronic tobacco use, history of diabetes and hypertension who presented with non ST-segment elevation myocardial infarction, had episode of paroxysmal atrial fibrillation, underwent cardiac catheterization, was found to have severe coronary artery disease, underwent coronary artery bypass grafting. He is doing well this morning. He is sitting up in the chair. Last night, he had episode of atrial fibrillation requiring IV amiodarone. He is back in sinus mechanism. He denies any dizziness or palpitation. He continues to be on the IV amiodarone per protocol. He is on aspirin, Lipitor 80 mg daily, Plavix 75 mg daily, metoprolol tartrate 12.5 mg twice a day. PHYSICAL EXAMINATION: Blood pressure running in the low 100s, high 90s with the heart rate in 90s. LUNGS: With mild decrease in breath sounds at both bases. No wheezes appreciated. HEART: Regular rate and rhythm. S1, S2. No S3. No rub appreciated. ABDOMEN: Soft, nontender. EXTREMITIES: No edema. LAB DATA: Lab data revealed BUN and creatinine 25 and 1.5, potassium 4.1, hemoglobin 10.3. IMPRESSION: 1. Status post coronary artery bypass grafting, stable. 2. Paroxysmal atrial fibrillation, back in sinus mechanism. 3. Diabetes mellitus. 4. Hypertension by history. 5. Chronic obstructive lung disease. RECOMMENDATION: From the cardiac standpoint, will continue present therapy. If he has further episodes of atrial fibrillation then anticoagulation will need to be initiated. Otherwise, increase in physical activity and continue incentive spirometry and depending on his progress, further recommendation will be made. MMODL / IJN: [id number] /
[2020-09-21 08:06] LABS: Glucose,Whole Blood 159 mg/dL (75-99)
[2020-09-21 09:36] LABS: Glucose,Whole Blood 153 mg/dL (75-99)
[2020-09-21] MEDS: MIDODRINE 5 MG TAB PO SCH ×3 (09:41→17:08)
[2020-09-21] MEDS: METOPROLOL TARTRATE 12.5 MG TAB PO SCH ×2 (09:41→20:59)
[2020-09-21] MEDS: AMIODARONE 200 MG TAB PO SCH ×2 (09:41→20:59)
[2020-09-21] MEDS: CLOPIDOGREL 75 MG TAB PO SCH (09:42)
[2020-09-21] MEDS: ASPIRIN 325 MG TAB PO SCH (09:42)
[2020-09-21 10:03] LABS: Glucose,Whole Blood 150 mg/dL (75-99)
--- NOTE | 2020-09-21 10:29 | XR ---
EXAMINATION TYPE: XR chest 1V portable DATE OF EXAM: 09/21/2020 COMPARISON: 09/20/2020 INDICATION: Postop cardiac surgery TECHNIQUE: Single frontal view of the chest is obtained. FINDINGS: The heart size is mildly prominent. The pulmonary vasculature is prominent. Mild right lower lobe infiltrate is present. A small right pleural effusion is present. Left-sided chest tube is present, no pneumothorax is evident. Mediastinal tube is present. Central ve nous catheter sheath is in the right apex. The Plymouth-Colt catheter is been removed. IMPRESSION: 1. Mild right lower lobe infiltrate with small right pleural effusion.
[2020-09-21] MEDS: IPRATROPIUM-ALBUTEROL 3 ML NEB INHALATION SCH ×4 (11:11→21:10)
[2020-09-21 11:15] LABS: Glucose,Whole Blood 128 mg/dL (75-99)
[2020-09-21 12:02] LABS: Glucose,Whole Blood 113 mg/dL (75-99)
[2020-09-21] MEDS: amLODIPine 2.5 MG TAB PO SCH (12:13)
[2020-09-21 13:13] LABS: Glucose,Whole Blood 170 mg/dL (75-99)
[2020-09-21 14:14] LABS: Glucose,Whole Blood 176 mg/dL (75-99)
[2020-09-21 15:16] LABS: Glucose,Whole Blood 189 mg/dL (75-99)
--- NOTE | 2020-09-21 15:48 | P.PN ---
Subjective Progress Note Date: 09/21/20 Patient is a 70-year-old male with a history of tobacco abuse, hypertension, prediabetes, and COPD who presented to the emergency department with complaints of chest pain. On arrival via EMS he received 2 nitroglycerin and aspirin and had a improvement in his chest pain. In the emergency department he underwent an extensive evaluation. Initial vital signs showed a heart rate of 134 and a blood pressure 142/87. Initial laboratory analysis demonstrated an elevated troponin at 0.086. He was admitted for further management of his new onset atrial fibrillation with rapid ventricular response and non-ST segment elevated myocardial infarction. He was placed on nitro for pain and blood pressure contr ol, Cardizem drip, and a heparin drip. His aspirin was continued. He was also started on a statin. His metformin was held and started on sliding scale insulin. Subsequently he converted to normal sinus rhythm and his Cardizem drip was discontinued. His troponin continued to rise to a max of 5.7. He was therefore urgently taken to cardiac catheterization which demonstrated calcified coronary arteries, chronically occluded right coronary artery with collaterals from the left, and critical stenosis in the LAD and a long segment. It was determined that he likely would need cardiac bypass. Echo with EF 45-50%, Carotid dopplers negative for ischemia, Proximal abdominal aortic aneurysm 3.0 cm. He underwent Tripple Vessel CABG on 09/19 and returned to the ICU. The patient was seen at the bedside on 09/21. Overnight the patient had an episode of Afib after which he was started on IV amiodarone with subsequent conversion to sinus rhythm. The patient reports improvement in his pleuritic c hest discomfort. He is eager to have his chest tubes removed. Denied shortness of breath, nausea, vomiting, palpitations, or diaphoresis. General: Non-toxic, in no acute distress, appears stated age, obese HEENT: NC/AT, anicteric sclerae, moist conjunctiva, no lid-lag, PERRLA Cardiovascular: S1/S2 wnl, no murmurs, rubs, or gallops, chest hugger with chest tube in place Lungs: Clear to auscultation, normal respiratory effort, no accessory muscle use Abdominal: Soft, non-tender, non-distended, no guarding, rebound, or rigidity Skin: Warm, dry Extremities: No edema or contractures Psychiatric: Alert and oriented to person, place and time, appropriate affect Neuro: CN II-XII grossly intact, Strength 4/5 in all 4 extremities, Speech intact, Sensation to light touch grossly intact throughout Non-ST segment elevated myocardial infarction with LAD disease in the setting of diabetes, 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 If he need insulin short term family can help. Thrombocytopenia -HIT abs negative on 09/17 -Cardiothoracic surgery service aware and wish for the patient to continue with the Heparin subq for now -Continue to monitor CBC New-onset atrial fibrillation with rapid ventricular response -Resolved -Continue to monitor Abdominal aortic aneurysm 3 cm -Continue outpatient follow-up Hypertension, controlled -Continue with Metoprolol and Norvasc -Follow blood pressures Obesity with BMI 31.6 -Outpatient structured weight loss Tobacco abuse -Cessation -Nicotine replacement if needed we'll attempt to avoid DVT prophylaxis -Heparin subq Discussed with: Patient Anticipated discharge date: Home Anticipated discharge place: 4-5 days A total of 35 minutes was spent on the care of this complex patient more than 50% of the time was spent in counseling and care coordination. Objective - Vital Signs Vital signs: Vital Signs Temp 98.4 F 09/21/20 12:00 Pulse 69 09/21/20 13:00 Resp 13 09/21/20 13:00 BP 88/54 09/21/20 12:00 Pulse Ox 94 L 09/21/20 13:00 Intake & Output 09/20/20 09/21/20 09/21/20 18:59 06:59 18:59 Intake Total 1515.522 666.869 638.253 Output Total 555 390 270 Balance 960.522 276.869 368.253 Weight 120.5 kg 117.8 kg Intake: IV 719 312 492 Albumin Human 5% 250 ml 250 250 In Empty Bag 1 bag @ 250 mls/hr IVPB Q1HR PRN Rx#: [id number] Co/CI 40 Lactated Ringers 1,000 ml 360 240 200 @ 20 mls/hr IV .Q24H [facility] Rx#:[id number] pressure bag 69 72 42 Intake, IV Titration 56.522 54.869 26.253 Amount Insulin Regular 100 unit 30.972 54.869 26.253 In Sodium Chloride 0.9% 100 ml @ Per Protocol IV .Q0M [facility] Rx#:[id number] Nitroglycerin-D5w Pmx 50 25.55 mg In Dextrose/Water 1 250ml.bag @ 5 MCG/MIN 1.5 mls/hr IV .Q24H [facility] Rx#: [id number] Oral 740 300 120 Output: Chest Tube Drainage 250 40 170 Left Pleural/Mediastinal 250 40 170 Urine 305 350 100 Other: Voiding Method Indwelling Catheter Indwelling Catheter Urinal ABP, PAP, CO, CI - Last Documented Arterial Blood Pressure 109/47 Pulmonary Artery Pressure 29/11 Cardiac Output 8.1 Cardiac Index 3.3 - Labs CBC & Chem 7: 09/21/20 04:38 09/21/20 04:38 Labs: Abnormal Lab Results - Last 24 Hours (Table) 09/20/20 09/20/20 09/20/20 Range/Units 13:48 15:06 16:20 RBC (4.30-5.90) m/uL Hgb (13.0-17.5) gm/dL Hct (39.0-53.0) % Plt Count (150-450) k/uL Sodium (137-145) mmol/L BUN (9-20) mg/dL POC Glucose (mg/dL) 184 H 178 H 172 H (75-99) mg/dL Calcium (8.4-10.2) mg/dL Total Protein (6.3-8.2) g/dL Albumin (3.5-5.0) g/dL 09/20/20 09/20/20 09/20/20 Range/Units 19:29 21:01 22:59 RBC (4.30-5.90) m/uL Hgb (13.0-17.5) gm/dL Hct (39.0-53.0) % Plt Count (150-450) k/uL Sodium (137-145) mmol/L BUN (9-20) mg/dL POC Glucose (mg/dL) 149 H 147 H 120 H (75-99) mg/dL Calcium (8.4-10.2) mg/dL Total Protein (6.3-8.2) g/dL Albumin (3.5-5.0) g/dL 09/21/20 09/21/20 09/21/20 Range/Units 00:32 02:44 04:38 RBC 3.27 L (4.30-5.90) m/uL Hgb 10.3 L (13.0-17.5) gm/dL Hct 30.6 L (39.0-53.0) % Plt Count 70 L (150-450) k/uL Sodium (137-145) mmol/L BUN (9-20) mg/dL POC Glucose (mg/dL) 131 H 186 H (75-99) mg/dL Calcium (8.4-10.2) mg/dL Total Protein (6.3-8.2) g/dL Albumin (3.5-5.0) g/dL 09/21/20 09/21/20 09/21/20 Range/Units 04:38 06:15 07:24 RBC (4.30-5.90) m/uL Hgb (13.0-17.5) gm/dL Hct (39.0-53.0) % Plt Count (150-450) k/uL Sodium 134 L (137-145) mmol/L BUN 25 H (9-20) mg/dL POC Glucose (mg/dL) 124 H 166 H (75-99) mg/dL Calcium 8.3 L (8.4-10.2) mg/dL Total Protein 5.4 L (6.3-8.2) g/dL Albumin 3.3 L (3.5-5.0) g/dL 09/21/20 09/21/20 09/21/20 Range/Units 08:04 09:35 10:02 RBC (4.30-5.90) m/uL Hgb (13.0-17.5) gm/dL Hct (39.0-53.0) % Plt Count (150-450) k/uL Sodium (137-145) mmol/L BUN (9-20) mg/dL POC Glucose (mg/dL) 159 H 153 H 150 H (75-99) mg/dL Calcium (8.4-10.2) mg/dL Total Protein (6.3-8.2) g/dL Albumin (3.5-5.0) g/dL 09/21/20 09/21/20 09/21/20 Range/Units 11:14 12:01 13:11 RBC (4.30-5.90) m/uL Hgb (13.0-17.5) gm/dL Hct (39.0-53.0) % Plt Count (150-450) k/uL Sodium (137-145) mmol/L BUN (9-20) mg/dL POC Glucose (mg/dL) 128 H 113 H 170 H (75-99) mg/dL Calcium (8.4-10.2) mg/dL Total Protein (6.3-8.2) g/dL Albumin (3.5-5.0) g/dL
[2020-09-21] MEDS: LACTATED RINGERS 1,000 ML IV SCH ×2 (15:55→21:00)
[2020-09-21 16:05] LABS: Glucose,Whole Blood 169 mg/dL (75-99)
--- NOTE | 2020-09-21 16:29 | P.PN ---
Subjective Progress Note Date: 09/21/20 70-year-old male patient post non-STEMI, remains in the intensive care unit and the patient is being seen in follow-up today. The patient has diabetes mellitus, hypertension, COPD and history of chronic smoking. Cardiac catheterization was done and the patient was found to have significant coronary artery disease and the patient underwent an urgent cardiac revascularization surgery and the patient underwent EGAN to LAD, SVG to RCA, and left radial artery to OM. The patient was subsequently brought into the intensive care units. Hemodynamically, the patient had a cardiac index of 2.1 and output of 5.0. The patient was sedated with propofol. The patient was on a mechanical ventilator in addition to a Cardizem drip at 5 mg an hour, nitroglycerin drip and lactated Ringer that was running at 50 mL an hour. The patient was gradually weaned off the mechanical ventilator per protocol and the patient was extubated and the patient was switched to nasal cannula. Doing well. Awake and alert. On today's evaluation, the patient is awake and alert. The patient is off the Cardizem drip. The patient is off the nitroglycerin drip. The patient is on no pressors. The patient is on lactated Ringer at the rate of 40 mL an hour. The patient is also on insulin drip at 4 units an hour. The patient on 3 L of oxygen by nasal cannula with pulse ox of 95%. Heart rhythm is sinus. Pacemaker backup VVI at 40. No other issues for now. His emanating. Chest x- ray was reviewed. Chest tubes are all in place. On 09/21/2020, Puneet is doing well. No specific complaints. Awake and alert and sitting up on a chair. Pulse ox 97% liters of oxygen by nasal cannula. The patient is a left pleural and mediastinal chest tubes and the drainage is in order of 30 mL an hour. Chest x-ray showing small bilateral pleural effusion. Chest tubes are in good location. He is in a sinus rhythm for now. He did go into atrial fibrillation with rapid ventricular response at around 10 PM. He was given IV amiodarone per protocol and currently amiodarone is running at 0.5 mg per minute. He is back into normal sinus rhythm and he converted at around 6 PM. He is on lactated Ringer at the rate of 30 mL an hour. He is also on insulin drip at 4.5 units an hour. He is using incentive spirometer pulling approximately 750 mL. No specific complaints. No focal logical deficits. Surgical wound site is dry clean and intact. Adequate urine output. He is currently on a combination of aspirin and Plavix and metoprolol. Objective - Vital Signs Vital signs: Vital Signs Temp 97.9 F 09/21/20 08:00 Pulse 64 09/21/20 09:00 Resp 18 09/21/20 09:00 BP 86/56 09/21/20 08:00 Pulse Ox 96 09/21/20 09:00 Intake & Output 09/20/20 09/21/20 09/21/20 18:59 06:59 18:59 Intake Total 1515.522 666.869 221.182 Output Total 555 390 145 Balance 960.522 276.869 76.182 Weight 120.5 kg 117.8 kg Intake: IV 719 312 98 Albumin Human 5% 250 ml 250 In Empty Bag 1 bag @ 250 mls/hr IVPB Q1HR PRN Rx#: [id number] Co/CI 40 Lactated Ringers 1,000 ml 360 240 80 @ 20 mls/hr IV .Q24H [facility] Rx#:[id number] pressure bag 69 72 18 Intake, IV Titration 56.522 54.869 3.182 Amount Insulin Regular 100 unit 30.972 54.869 3.182 In Sodium Chloride 0.9% 100 ml @ Per Protocol IV .Q0M [facility] Rx#:[id number] Nitroglycerin-D5w Pmx 50 25.55 mg In Dextrose/Water 1 250ml.bag @ 5 MCG/MIN 1.5 mls/hr IV .Q24H [facility] Rx#: [id number] Oral 740 300 120 Output: Chest Tube Drainage 250 40 100 Left Pleural/Mediastinal 250 40 100 Urine 305 350 45 Other: Voiding Method Indwelling Catheter Indwelling Catheter ABP, PAP, CO, CI - Last Documented Arterial Blood Pressure 120/45 Pulmonary Artery Pressure 29/11 Cardiac Output 8.1 Cardiac Index 3.3 - Exam - Constitutional General appearance: Present: cooperative, no acute distress, obese - EENT Eyes: Present: normal appearance. Absent: scleral icterus - Neck Details: Neck is supple, no JVD, right IJ Cordis and Huntington-Colt catheter in place and functioning. - Respiratory Details: Lung sounds are essentially clear to his bilateral upper lobes, diminished to his bilateral bases. No wheezes, rhonchi or crackles. Respirations are symmetrical and nonlabored. Oxygen saturation is 97% on 2 L and the patient is pulling approximately 750 on incentive spirometer. - Cardiovascular Details: Regular rhythm and rate. S1 and S2 present, negative for S3, gallop or murmur. Sternum is stable. Bedside telemetry showing normal sinus rhythm heart rate 66 BPM. Atrial and ventricular epicardial pacemaker wires in place and connected to backup bedside pacemaker - Gastrointestinal Gastrointestinal Comment(s): Abdomen is soft, nontender and nondistended. Hypoactive bowel sounds present in all 4 abdominal quadrants. No guarding or rigidity. No organomegaly appreciated. Tolerating oral intake. - Genitourinary Genitourinary Comment(s): Alonzo catheter for accurate I&O. Draining clear ebony urine with 305 mL output last 8 hours. - Integumentary Integumentary Comment(s): Skin is warm and dry. No clubbing or cyanosis is present. Midline sternal incision is clean, dry and approximated. No drainage or redness is present. Dressing is clean, dry and intact. Left radial artery harvest sites clean, dry and approximated. No drainage or redness is present. KANDACE drain in place draining scant serosanguineous drainage. Bilateral lower extremity EVH sites are clean, dry and approximated. No drainage or redness is present. - Neurologic Neurologic: Present: CNII-XII intact - Musculoskeletal Musculoskeletal: Present: gait normal, generalized weakness, strength equal bilaterally - Psychiatric Psychiatric: Present: A&O x's 3, appropriate affect, intact judgment & insight - Labs CBC & Chem 7: 09/21/20 04:38 09/21/20 04:38 Labs: Abnormal Lab Results - Last 24 Hours (Table) 09/20/20 09/20/20 09/20/20 Range/Units 11:25 11:54 13:48 RBC (4.30-5.90) m/uL Hgb (13.0-17.5) gm/dL Hct (39.0-53.0) % Plt Count (150-450) k/uL Sodium (137-145) mmol/L BUN (9-20) mg/dL POC Glucose (mg/dL) 150 H 137 H 184 H (75-99) mg/dL Calcium (8.4-10.2) mg/dL Total Protein (6.3-8.2) g/dL Albumin (3.5-5.0) g/dL 09/20/20 09/20/20 09/20/20 Range/Units 15:06 16:20 19:29 RBC (4.30-5.90) m/uL Hgb (13.0-17.5) gm/dL Hct (39.0-53.0) % Plt Count (150-450) k/uL Sodium (137-145) mmol/L BUN (9-20) mg/dL POC Glucose (mg/dL) 178 H 172 H 149 H (75-99) mg/dL Calcium (8.4-10.2) mg/dL Total Protein (6.3-8.2) g/dL Albumin (3.5-5.0) g/dL 09/20/20 09/20/20 09/21/20 Range/Units 21:01 22:59 00:32 RBC (4.30-5.90) m/uL Hgb (13.0-17.5) gm/dL Hct (39.0-53.0) % Plt Count (150-450) k/uL Sodium (137-145) mmol/L BUN (9-20) mg/dL POC Glucose (mg/dL) 147 H 120 H 131 H (75-99) mg/dL Calcium (8.4-10.2) mg/dL Total Protein (6.3-8.2) g/dL Albumin (3.5-5.0) g/dL 09/21/20 09/21/20 09/21/20 Range/Units 02:44 04:38 04:38 RBC 3.27 L (4.30-5.90) m/uL Hgb 10.3 L (13.0-17.5) gm/dL Hct 30.6 L (39.0-53.0) % Plt Count 70 L (150-450) k/uL Sodium 134 L (137-145) mmol/L BUN 25 H (9-20) mg/dL POC Glucose (mg/dL) 186 H (75-99) mg/dL Calcium 8.3 L (8.4-10.2) mg/dL Total Protein 5.4 L (6.3-8.2) g/dL Albumin 3.3 L (3.5-5.0) g/dL 09/21/20 09/21/20 09/21/20 Range/Units 06:15 07:24 08:04 RBC (4.30-5.90) m/uL Hgb (13.0-17.5) gm/dL Hct (39.0-53.0) % Plt Count (150-450) k/uL Sodium (137-145) mmol/L BUN (9-20) mg/dL POC Glucose (mg/dL) 124 H 166 H 159 H (75-99) mg/dL Calcium (8.4-10.2) mg/dL Total Protein (6.3-8.2) g/dL Albumin (3.5-5.0) g/dL Assessment and Plan Plan: 1 Non-ST segment elevation myocardial infarction with significant triple-vessel disease. Status post coronary revascularization with EGAN to the LAD, left radial arterial graft to the obtuse marginal branch, saphenous vein graft to the RCA. Postoperative day #2. The patient is hemodynamically stable on no pressors. The patient on a combination of aspirin and Plavix and beta blockers. 2 post thoracotomy, and the patient was weaned off the mechanical ventilator and the patient was extubated to nasal cannula. Chest tubes remain in place. The chest x-ray was reviewed from today. Output was noted. We'll monitor the output from the chest tube and likely taken off horse at least separate the tubes 3 new-onset atrial fibrillation with rapid ventricular response, currently in sinus rhythm, currently on oral amiodarone and her rhythm is sinus 4 Diabetes mellitus, type II 5 COPD secondary to Chronic tobacco dependence and a preop FEV1 of 54% of predicted 6 Hypertension 7 obstructive sleep apnea. 8 hiatal hernia Plan Monitor the output from the chest tube and likely take them out today depending and output Continue aspirin and Plavix and beta blockers Continue using incentive spirometer Insulin drip at 4 units an hour Ablate the patient the hallway We'll keep the patient ICU for 24 hours and will continue to follow.
[2020-09-21] MEDS ORDERED: ACETAMINOPHEN TAB 500 MG TAB PO PRN (16:50)
[2020-09-21 16:58] LABS: Glucose,Whole Blood 164 mg/dL (75-99)
--- NOTE | 2020-09-21 17:08 | P.PN ---
Subjective Progress Note Date: 09/21/20 Principal diagnosis: Symptomatic multivessel coronary artery disease, non-ST elevated myocardial infarction this admission, new-onset preoperative atrial fibrillation with RVR. Past medical history significant for hypertension, diabetes mellitus type 2, COPD with a preoperative FEV1 of 54% of predicted value, chronic ongoing tobacco abuse, history of hiatal hernia and history of sleep apnea. POD #2 coronary artery bypass grafting 3 with left internal mammary artery to left anterior setting coronary artery, reverse greater saphenous vein graft off the aorta to the posterior ventricular branch of the right coronary artery and a radial artery off the aorta to the circumflex coronary artery. Bilateral lower extremity greater saphenous vein endoscopic harvesting, endoscopic left radial artery harvest, clip ligation of the left atrial appendage using a 35 mm Atriclip and intraoperative transesophageal echocardiogram. Postoperative acute blood loss anemia, expected given hemodilution and cardiopulmonary bypass. Postoperative paroxysmal atrial fibrillation, expected as the patient had preoperative atrial fibrillation. The patient was seen in follow-up today 09/21/2020 at his bedside in the intensive care unit. He is awake, alert and oriented 3, sitting up to the bedside chair and is in no acute distress. He denies any complaints of shortness of breath although is complaining of some surgical type pain to his chest tube insertion sites with taking a deep breath. He remains hemodynamically stable and is currently on no inotropic or pressor support. Rig ht IJ cordis remains in place with continuous CVP monitoring, current CVP pressure 10 mmHg. Bedside telemetry showing normal sinus rhythm heart rate atrial fibrillation heart rate 114 BPM. Amiodarone drip was initiated per protocol and is currently infusing at 0.5 mg per hour. Albumin 5% 500 mL IV piggyback given for some hypotension. Mediastinal and left pleural chest tubes remain in place to low continuous wall suction -20 cm H2O. No air leak is present. Draining thin serosanguineous drainage with 70 mL output in the last 8 hours and 430 mL output in the last 24 hours. Oxygen saturations are 96% on 2 L nasal cannula and he is achieving 1000 mL on his incentive spirometry. Objective - Vital Signs Vital signs: Vital Signs Temp 98.4 F 09/21/20 12:00 Pulse 76 09/21/20 14:00 Resp 20 09/21/20 14:00 BP 88/54 09/21/20 12:00 Pulse Ox 93 L 09/21/20 14:00 Intake & Output 09/20/20 09/21/20 09/21/20 18:59 06:59 18:59 Intake Total 1515.522 666.869 881.475 Output Total 555 390 290 Balance 960.522 276.869 591.475 Weight 120.5 kg 117.8 kg Intake: IV 719 312 528 Albumin Human 5% 250 ml 250 250 In Empty Bag 1 bag @ 250 mls/hr IVPB Q1HR PRN Rx#: [id number] Co/CI 40 Lactated Ringers 1,000 ml 360 240 230 @ 20 mls/hr IV .Q24H [facility] Rx#:[id number] pressure bag 69 72 48 Intake, IV Titration 56.522 54.869 33.475 Amount Insulin Regular 100 unit 30.972 54.869 33.475 In Sodium Chloride 0.9% 100 ml @ Per Protocol IV .Q0M [facility] Rx#:[id number] Nitroglycerin-D5w Pmx 50 25.55 mg In Dextrose/Water 1 250ml.bag @ 5 MCG/MIN 1.5 mls/hr IV .Q24H [facility] Rx#: [id number] Oral 740 300 320 Output: Chest Tube Drainage 250 40 190 Left Pleural/Mediastinal 250 40 190 Urine 305 350 100 Other: Voiding Method Indwelling Catheter Indwelling Catheter Urinal ABP, PAP, CO, CI - Last Documented Arterial Blood Pressure 106/47 Pulmonary Artery Pressure 29/11 Cardiac Output 8.1 Cardiac Index 3.3 - Constitutional General appearance: Present: cooperative, no acute distress, obese - EENT Eyes: Present: normal appearance. Absent: scleral icterus ENT: Present: hearing grossly normal - Neck Details: Neck is supple, no JVD, right IJ Cordis in place to continue CVP monitoring. - Respiratory Details: Lung sounds essentially clear throughout, vest tailor bilateral bases. No wheezes, rhonchi or crackles. Respirations are symmetrical and nonlabored. Oxygen saturation is 96% on 2 L nasal cannula. Achieving 1000 mL on his incentive spirometry. Mediastinal and left pleural chest tube remained in place to low continuous wall suction -20 cm H2O. No air leak is present. Draining thin serosanguineous drainage with 430 mL output in the last 24 hours, and 70 mL output in the last 8 hours. - Cardiovascular Details: Regular rhythm and rate. S1 and S2 present, negative for S3, gallop or murmur. Sternum is stable. Ventricular epicardial pacemaker wires in place to bedside pacemaker generator with a VVI 50. No edema present. Knee-high FLOYD hose and sequential compression devices in place to his bilateral lower extremities. Right IJ Cordis in place with continuous CVP monitoring, current CVP pressure 10 mmHg. Heart hugger is in place and he is demonstrating appropriate use. Bedside telemetry showing atrial fibrillation heart rate 114 BPM. Amiodarone drip infusing at 0.5 mg/m. - Gastrointestinal Gastrointestinal Comment(s): Abdomen is soft, nontender and nondistended. Active bowel sounds present in all 4 abdominal quadrants. No guarding or rigidity. No organomegaly appreciated. Passing flatus. Tolerating oral intake. - Genitourinary Genitourinary Comment(s): Alonzo catheter for accurate I&O. Draining clear ebony urine. - Integumentary Integumentary Comment(s): Skin is warm and dry. No clubbing or cyanosis is present. Midline sternal incision is clean, dry and approximated. No drainage or redness is present. Left upper extremity radial artery harvest sites clean, dry and approximated. No drainage or redness is present. Bilateral lower extremity EVH site clean, dry and approximated. No drainage or redness present. - Neurologic Neurologic: Present: CNII-XII intact - Musculoskeletal Musculoskeletal: Present: gait normal, generalized weakness, strength equal bilaterally - Psychiatric Psychiatric: Present: A&O x's 3, appropriate affect, intact judgment & insight - Allied health notes Allied health notes reviewed: nursing - Labs CBC & Chem 7: 09/21/20 04:38 09/21/20 04:38 Labs: Abnormal Lab Results - Last 24 Hours (Table) 09/20/20 09/20/20 09/20/20 Range/Units 16:20 19:29 21:01 RBC (4.30-5.90) m/uL Hgb (13.0-17.5) gm/dL Hct (39.0-53.0) % Plt Count (150-450) k/uL Sodium (137-145) mmol/L BUN (9-20) mg/dL POC Glucose (mg/dL) 172 H 149 H 147 H (75-99) mg/dL Calcium (8.4-10.2) mg/dL Total Protein (6.3-8.2) g/dL Albumin (3.5-5.0) g/dL 09/20/20 09/21/20 09/21/20 Range/Units 22:59 00:32 02:44 RBC (4.30-5.90) m/uL Hgb (13.0-17.5) gm/dL Hct (39.0-53.0) % Plt Count (150-450) k/uL Sodium (137-145) mmol/L BUN (9-20) mg/dL POC Glucose (mg/dL) 120 H 131 H 186 H (75-99) mg/dL Calcium (8.4-10.2) mg/dL Total Protein (6.3-8.2) g/dL Albumin (3.5-5.0) g/dL 09/21/20 09/21/20 09/21/20 Range/Units 04:38 04:38 06:15 RBC 3.27 L (4.30-5.90) m/uL Hgb 10.3 L (13.0-17.5) gm/dL Hct 30.6 L (39.0-53.0) % Plt Count 70 L (150-450) k/uL Sodium 134 L (137-145) mmol/L BUN 25 H (9-20) mg/dL POC Glucose (mg/dL) 124 H (75-99) mg/dL Calcium 8.3 L (8.4-10.2) mg/dL Total Protein 5.4 L (6.3-8.2) g/dL Albumin 3.3 L (3.5-5.0) g/dL 09/21/20 09/21/20 09/21/20 Range/Units 07:24 08:04 09:35 RBC (4.30-5.90) m/uL Hgb (13.0-17.5) gm/dL Hct (39.0-53.0) % Plt Count (150-450) k/uL Sodium (137-145) mmol/L BUN (9-20) mg/dL POC Glucose (mg/dL) 166 H 159 H 153 H (75-99) mg/dL Calcium (8.4-10.2) mg/dL Total Protein (6.3-8.2) g/dL Albumin (3.5-5.0) g/dL 09/21/20 09/21/20 09/21/20 Range/Units 10:02 11:14 12:01 RBC (4.30-5.90) m/uL Hgb (13.0-17.5) gm/dL Hct (39.0-53.0) % Plt Count (150-450) k/uL Sodium (137-145) mmol/L BUN (9-20) mg/dL POC Glucose (mg/dL) 150 H 128 H 113 H (75-99) mg/dL Calcium (8.4-10.2) mg/dL Total Protein (6.3-8.2) g/dL Albumin (3.5-5.0) g/dL 09/21/20 09/21/20 09/21/20 Range/Units 13:11 14:13 15:14 RBC (4.30-5.90) m/uL Hgb (13.0-17.5) gm/dL Hct (39.0-53.0) % Plt Count (150-450) k/uL Sodium (137-145) mmol/L BUN (9-20) mg/dL POC Glucose (mg/dL) 170 H 176 H 189 H (75-99) mg/dL Calcium (8.4-10.2) mg/dL Total Protein (6.3-8.2) g/dL Albumin (3.5-5.0) g/dL - Imaging and Cardiology Chest x-ray: report reviewed, image reviewed Assessment and Plan Assessment: 1. Symptomatic multivessel coronary artery disease, status post triple vessel coronary artery bypass grafting surgery 2. Non-ST elevated myocardial infarction this admission 3. Preoperative new onset atrial fibrillation with RVR, status post clipping of the left atrial appendage with an Atriclip 4. History of hypertension 5. Diabetes mellitus type 2 6. Chronic ongoing tobacco abuse 7. History of hiatal hernia 8. History of sleep apnea 9. COPD with a preoperative FEV1 54% of predicted value 10. Postoperative acute blood loss anemia, expected Plan: 1. Continue to maximize medical therapy with aspirin, Plavix and beta randy. Will increase metoprolol tartrate as tolerated. 2. Continue amiodarone drip at 0.5 mg/m, start amiodarone 400 mg by mouth twice a day for atrial fibrillation prophylaxis. 3. Wean O2 as tolerated. Continue to encourage use of incentive spirometry 10 times every hour while awake. Bronchodilators per pulmonology/critical care management. 4. Will monitor daily labs and chest x-rays. Electrolytes replacement per protocol. 5. GI/DVT prophylaxis. 6. Pain control with current medication regimen. Discontinue Toradol, as his creatinine is trending up. 7. Diabetes/insulin management per primary care service. 8. Discontinue right IJ Cordis. 9. Mediastinal and left pleural chest tubes removed without incident. 4 x 4 gauze dressing, Vaseline impregnated gauze to cover and secured with tape. 10. Discontinue Alonzo catheter. Continue to record strict accurate I's and O's. 11. Daily weights using standup scale, no bed scale. 12. Continue Norvasc 2.5 mg by mouth daily at noon for radial artery spasm prophylaxis. Please do not discontinue without discussing with cardiothoracic surgery service. Hold for systolic blood pressure less than 100 mmHg. 13. Keep ventricular epicardial pacemaker wires in place, and connected the backup bedside pacemaker generator on a VVI 50. 14. Increase activity as tolerated, physical/occupational therapy and cardiac rehab following patient. 15. More recommendations to follow based on patient's clinical course. Nurse practitioner note has been reviewed by the physician. Signing provider agrees with the above documented findings, assessment and plan of care. Time with Patient: Greater than 30
[2020-09-21 19:14] LABS: Glucose,Whole Blood 150 mg/dL (75-99)
[2020-09-21 20:09] LABS: Glucose,Whole Blood 138 mg/dL (75-99)
[2020-09-21] MEDS: INSULIN REGULAR 100 UNIT in SODIUM CHLORIDE 0.9% 100 ML IV SCH (20:55)
[2020-09-21 20:56] LABS: Glucose,Whole Blood 129 mg/dL (75-99)
[2020-09-21] MEDS: ATORVASTATIN 80 MG TAB PO SCH (21:00)
[2020-09-21] MEDS: SENNOSIDES-DOCUSATE SODIUM 1 EACH TAB PO SCH (21:00)
[2020-09-21 22:00] LABS: Glucose,Whole Blood 145 mg/dL (75-99)
[2020-09-21 23:57] LABS: Glucose,Whole Blood 128 mg/dL (75-99)
[2020-09-22 02:10] LABS: Glucose,Whole Blood 87 mg/dL (75-99)
[2020-09-22 04:16] LABS: Glucose,Whole Blood 128 mg/dL (75-99)
[2020-09-22 04:48] LABS: Basophils % (A) 0 %; Eosinophils # (A) 0.3 k/uL (0-0.7); Eosinophils % (A) 3 %; HCT 29.9 % (39.0-53.0); Lymphocytes # (A) 1.1 k/uL (1.0-4.8); Lymphocytes % (A) 10 %; MCH 31.4 pg (25.0-35.0); MCHC 33.4 g/dL (31.0-37.0); Monocytes # (A) 0.6 k/uL (0-1.0); Monocytes % (A) 6 %; Neutrophils # (A) 8.2 k/uL (1.3-7.7); Neutrophils % (A) 78 %; RBC 3.18 m/uL (4.30-5.90); RDW 13.4 % (11.5-15.5); WBC 10.5 k/uL (3.8-10.6)
[2020-09-22 04:50] LABS: Platelet Count 86 k/uL (150-450)
[2020-09-22 05:05] LABS: Albumin 3.3 g/dL (3.5-5.0); Calcium 8.6 mg/dL (8.4-10.2); Potassium 4.5 mmol/L (3.5-5.1); Total Bilirubin 0.8 mg/dL (0.2-1.3); Total Protein 5.6 g/dL (6.3-8.2)
[2020-09-22 06:18] LABS: Glucose,Whole Blood 134 mg/dL (75-99)
[2020-09-22] MEDS: MIDODRINE 5 MG TAB PO SCH ×3 (06:19→17:22)
[2020-09-22] MEDS: PANTOPRAZOLE 40 MG TABLET PO SCH (06:19)
[2020-09-22] MEDS: HEPARIN SODIUM,PORCINE 5,000 UNIT/ML 1 ML VIAL SQ SCH ×5 (06:20→20:58)
--- NOTE | 2020-09-22 07:10 | XR ---
EXAMINATION TYPE: XR chest 2V DATE OF EXAM: 09/22/2020 HISTORY: Shortness of breath. COMPARISON: 09/21/2020 TECHNIQUE: Single view of the chest is submitted. FINDINGS: Left-sided chest tube has been removed. No evidence for pneumothorax. Pleural parenchymal opacity thr oughout the right lung is unchanged. The heart is stable. Hilar and mediastinal structures are within normal limits. Degenerative changes are seen of the dorsal spine. IMPRESSION: 1. Stable scattered pleural parenchymal opacity bilaterally right greater than left.
[2020-09-22 07:11] LABS: Glucose,Whole Blood 118 mg/dL (75-99)
[2020-09-22] MEDS: AMIODARONE 200 MG TAB PO SCH ×2 (07:37→20:59)
[2020-09-22] MEDS: METOPROLOL TARTRATE 12.5 MG TAB PO SCH (07:37)
[2020-09-22] MEDS: DEXTROSE 5% IN WATER 100 ML with AMIODARONE 150 MG IV PRN (07:54)
[2020-09-22 08:09] LABS: Glucose,Whole Blood 169 mg/dL (75-99)
[2020-09-22] MEDS: IPRATROPIUM-ALBUTEROL 3 ML NEB INHALATION SCH ×4 (08:22→20:05)
[2020-09-22] MEDS: Fluticasone/Umeclidin/Vilanter [Trelegy Ellipta 100-62.5-25] INHALATION SCH (08:33)
[2020-09-22] MEDS ORDERED: FUROSEMIDE 10 MG/ML 4 ML VIAL IV STA (08:45)
[2020-09-22] MEDS: CLOPIDOGREL 75 MG TAB PO SCH (09:47)
[2020-09-22] MEDS: ASPIRIN 325 MG TAB PO SCH (09:47)
[2020-09-22 09:53] LABS: Glucose,Whole Blood 174 mg/dL (75-99)
[2020-09-22] MEDS ORDERED: METOPROLOL TARTRATE 12.5 MG TAB PO STA (09:58)
--- NOTE | 2020-09-22 10:12 | PN ---
PROGRESS NOTE Mr. Lindsey is a 70-year-old male who presented with non ST-segment elevation myocardial infarction, had atrial fibrillation that converted spontaneously to sinus mechanism underwent cardiac bypass grafting. His breathing is better. He is denies any chest pain. He is in sinus mechanism. He denies any dizziness or palpitation. He is doing better with the incentive spirometry. He continues to be at this time on amiodarone 4 mg twice a day, aspirin once a day, amlodipine 2.5 mg daily, Lipitor 80 mg daily and metoprolol tartrate 12.5 mg twice a day. PHYSICAL EXAMINATION: Blood pressure 114/70 with a heart rate in 60s. LUNGS: No wheezes or rales. HEART: Regular rate and rhythm, S1, S2. No S3. No rub appreciated. ABDOMEN: Soft and nontender. EXTREMITIES: No edema. LAB DATA: His chest x-ray shows a small effusion on the right side bigger than on the left side. BUN and creatinine 34 and 1.42, which is slightly worse than yesterday. Hemoglobin of 10. IMPRESSION: 1. Status post coronary artery bypass grafting, stable. 2. Atrial fibrillation paroxysmal, remains in sinus mechanism postoperatively. 3. Prior history of smoking. 4. History of diabetes mellitus. 5. History of hypertension. 6. Worsening renal function. RECOMMENDATION: Will follow his renal function closely. Continue on the present therapy. Increase his level of activity. If he has further episodes of atrial fibrillation, then anticoagulation will be required. MMODL / IJN: [id number] /
[2020-09-22] MEDS ORDERED: INSULIN DETEMIR (LEVEMIR) 100 UNIT/ML SYR SQ ONE ×2 (10:30→20:00)
--- NOTE | 2020-09-22 10:50 | P.VSCSTY ---
Greater Saphenous Vein Mapping This is bilateral lower extremity greater saphenous vein mapping. Date of service: 09/16/2020 Vein quality and ultrasound appearance: We see no intraluminal thrombus or wall changes. Vein size groin right : 5.9 x 5.6 groin left: 5.2 x 6.1 High thigh right: 6.8 x 7.0 high thigh left: 4.6 x 4.5 Mid thigh right: 5.2 x 4.9 mid thigh left: 3.4 x 3.4 Above-knee right: 3.3 x 3.1 above- knee left: 2.8 x 2.4 Below knee right: 6.0 x 5.6 below-knee left: 2.3 x 2.1 Mid calf right: 4.2 x 3.7 mid calf left: 2.2 x 2.0 Ankle right: 3.6 x 3.0 ankle left: 2.4 x 2.1 Impression: Usable bilateral greater saphenous vein..
--- NOTE | 2020-09-22 10:53 | P.ARTDOP ---
Arterial Doppler LOWER EXTREMITY ARTERIAL DOPPLER: DATE OF SERVICE: 09/17/2020 Reason for study: Preop CABG. Doppler waveforms: Multiphasic bilaterally throughout. Pulse volume recording: []. Pressure gradients: None. Ankle-brachial indices: Greater than 1 bilaterally. Toe brachial indices: 0.87 on the right, 0.93 on the left Impression: Normal study.
--- NOTE | 2020-09-22 10:55 | P.PN ---
Subjective Progress Note Date: 09/22/20 Principal diagnosis: Symptomatic multivessel coronary artery disease, non-ST elevated myocardial infarction this admission, new-onset preoperative atrial fibrillation with RVR. Past medical history significant for hypertension, diabetes mellitus type 2, COPD with a preoperative FEV1 of 54% of predicted value, chronic ongoing tobacco abuse, history of hiatal hernia and history of sleep apnea. POD #3 coronary artery bypass grafting 3 with left internal mammary artery to left anterior setting coronary artery, reverse greater saphenous vein graft off the aorta to the posterior ventricular branch of the right coronary artery and a radial artery off the aorta to the circumflex coronary artery. Bilateral lower extremity greater saphenous vein endoscopic harvesting, endoscopic left radial artery harvest, clip ligation of the left atrial appendage using a 35 mm Atriclip and intraoperative transesophageal echocardiogram. Postoperative acute blood loss anemia, expected given hemodilution and cardiopulmonary bypass. Postoperative paroxysmal atrial fibrillation, expected as the patient had preoperative atrial fibrillation. The patient was seen in follow-up today 09/22/2020 at his bedside in the intensive care unit. He is awake, alert and oriented 3, sitting up to the bedside chair and is in no acute distress. Currently he denies any complaints of pain although is still having some episodes of shortness of breath with ambulating in the intensive care unit hallway. He remains hemodynamically stable and is currently on no inotropic or pressor support. His bedside monitor this morning is showing atrial fibrillation heart rate 101 BPM. He remains on amiodarone 400 mg by mouth twice a day and was given a 150 mg bolus of amiodarone IV piggyback this a.m. Oxygen saturation's are 94% on 2 L nasal cannula and he is achieving 1000 mL on his incentive spirometry. Ventricular epicardial pacemaker wires remained in place and are grounded. He's been ambulating in the intensive care unit hallway with minimal assistance from nursing and physical therapy staff. He reports he had his postoperative day shower this morning and feels much improved since the shower. His mediastinal and left pleural chest tubes were removed yesterday without incident. Objective - Vital Signs Vital signs: Vital Signs Temp 98.5 F 09/22/20 04:00 Pulse 86 09/22/20 10:00 Resp 24 09/22/20 10:00 BP 109/73 09/22/20 10:00 Pulse Ox 97 09/22/20 10:00 Intake & Output 09/21/20 09/22/20 09/22/20 18:59 06:59 18:59 Intake Total 1420.228 738.415 300.765 Output Total 415 550 0 Balance 1005.228 188.415 300.765 Weight 125.1 kg Intake: IV 672 432 134 Albumin Human 5% 250 ml 250 In Empty Bag 1 bag @ 250 mls/hr IVPB Q1HR PRN Rx#: [id number] Lactated Ringers 1,000 ml 350 360 110 @ 20 mls/hr IV .Q24H [facility] Rx#:[id number] pressure bag 72 72 24 Intake, IV Titration 308.228 56.415 26.765 Amount Amiodarone 300 mg In 250 Dextrose 5% in Water 250 ml @ 0.5 MG/MIN 25 mls/hr IV .Q10H PRN Rx#: [id number] Insulin Regular 100 unit 58.228 56.415 26.765 In Sodium Chloride 0.9% 100 ml @ Per Protocol IV .Q0M [facility] Rx#:[id number] Oral 440 250 140 Output: Chest Tube Drainage 190 Left Pleural/Mediastinal 190 Urine 225 550 0 Other: Voiding Method Urinal Urinal Urinal # Voids 0 0 ABP, PAP, CO, CI - Last Documented Arterial Blood Pressure 111/64 Pulmonary Artery Pressure 29/11 Cardiac Output 8.1 Cardiac Index 3.3 - Constitutional General appearance: Present: cooperative, no acute distress, obese - EENT Eyes: Present: normal appearance. Absent: scleral icterus ENT: Present: hearing grossly normal - Neck Details: Neck is supple, no JVD, no lymphadenopathy. Right IJ Cordis in place with continuous CVP monitoring. - Respiratory Details: Lung sounds are essentially clear throughout, few scattered crackles to his bilateral bases. No wheezes or rhonchi. Respirations are symmetrical and nonlabored. Oxygen saturation are 94% on 2 L nasal cannula. Achieving 1000 mL on his incentive spirometry. - Cardiovascular Details: Irregular rhythm and tachycardic rate. S1 and S2 present, negative for S3, gallop or murmur. Sternum is stable. Bedside telemetry showing atrial fibrillation heart rate 101 BPM. Ventricular epicardial pacemaker wires in place and grounded. Right IJ Cordis in place with continuous CVP monitoring, current CVP pressure 16 mmHg. Knee-high FLOYD hose and sequential compression devices in placed to his bilateral lower extremities. Heart hugger is in place and he is demonstrating appropriate use. No edema present. - Gastrointestinal Gastrointestinal Comment(s): Abdomen is soft, nontender and nondistended. Active bowel sounds present in all 4 abdominal quadrants. No guarding or rigidity. No aortic megaly appreciated. Tolerating oral intake. Passing flatus. - Genitourinary Genitourinary Comment(s): Continues to void. - Integumentary Integumentary Comment(s): Skin is warm and dry. No clubbing or cyanosis is present. Midline sternal incision is clean, dry and approximated. No drainage or redness is present. Left arm radial artery harvest sites clean, dry and approximated. No drainage or redness present. Ulnar pulse palpable. Left hand warm to touch. Bilateral lower extremity EVH site clean, dry and approximated. No drainage or redness is present. - Neurologic Neurologic: Present: CNII-XII intact - Musculoskeletal Musculoskeletal: Present: gait normal, generalized weakness, strength equal bilaterally - Psychiatric Psychiatric: Present: A&O x's 3, appropriate affect, intact judgment & insight - Allied health notes Allied health notes reviewed: nursing - Labs CBC & Chem 7: 09/22/20 04:40 09/22/20 04:40 Labs: Abnormal Lab Results - Last 24 Hours (Table) 09/21/20 09/21/20 09/21/20 Range/Units 11:14 12:01 13:11 RBC (4.30-5.90) m/uL Hgb (13.0-17.5) gm/dL Hct (39.0-53.0) % Plt Count (150-450) k/uL Neutrophils # (1.3-7.7) k/uL Sodium (137-145) mmol/L BUN (9-20) mg/dL Creatinine (0.66-1.25) mg/dL Glucose (74-99) mg/dL POC Glucose (mg/dL) 128 H 113 H 170 H (75-99) mg/dL Total Protein (6.3-8.2) g/dL Albumin (3.5-5.0) g/dL 09/21/20 09/21/20 09/21/20 Range/Units 14:13 15:14 16:03 RBC (4.30-5.90) m/uL Hgb (13.0-17.5) gm/dL Hct (39.0-53.0) % Plt Count (150-450) k/uL Neutrophils # (1.3-7.7) k/uL Sodium (137-145) mmol/L BUN (9-20) mg/dL Creatinine (0.66-1.25) mg/dL Glucose (74-99) mg/dL POC Glucose (mg/dL) 176 H 189 H 169 H (75-99) mg/dL Total Protein (6.3-8.2) g/dL Albumin (3.5-5.0) g/dL 09/21/20 09/21/20 09/21/20 Range/Units 16:57 19:12 20:08 RBC (4.30-5.90) m/uL Hgb (13.0-17.5) gm/dL Hct (39.0-53.0) % Plt Count (150-450) k/uL Neutrophils # (1.3-7.7) k/uL Sodium (137-145) mmol/L BUN (9-20) mg/dL Creatinine (0.66-1.25) mg/dL Glucose (74-99) mg/dL POC Glucose (mg/dL) 164 H 150 H 138 H (75-99) mg/dL Total Protein (6.3-8.2) g/dL Albumin (3.5-5.0) g/dL 09/21/20 09/21/20 09/21/20 Range/Units 20:54 21:58 23:55 RBC (4.30-5.90) m/uL Hgb (13.0-17.5) gm/dL Hct (39.0-53.0) % Plt Count (150-450) k/uL Neutrophils # (1.3-7.7) k/uL Sodium (137-145) mmol/L BUN (9-20) mg/dL Creatinine (0.66-1.25) mg/dL Glucose (74-99) mg/dL POC Glucose (mg/dL) 129 H 145 H 128 H (75-99) mg/dL Total Protein (6.3-8.2) g/dL Albumin (3.5-5.0) g/dL 09/22/20 09/22/20 09/22/20 Range/Units 04:14 04:40 04:40 RBC 3.18 L (4.30-5.90) m/uL Hgb 10.0 L (13.0-17.5) gm/dL Hct 29.9 L (39.0-53.0) % Plt Count 86 L (150-450) k/uL Neutrophils # 8.2 H (1.3-7.7) k/uL Sodium 133 L (137-145) mmol/L BUN 34 H (9-20) mg/dL Creatinine 1.42 H (0.66-1.25) mg/dL Glucose 125 H (74-99) mg/dL POC Glucose (mg/dL) 128 H (75-99) mg/dL Total Protein 5.6 L (6.3-8.2) g/dL Albumin 3.3 L (3.5-5.0) g/dL 09/22/20 09/22/20 09/22/20 Range/Units 06:16 07:10 08:08 RBC (4.30-5.90) m/uL Hgb (13.0-17.5) gm/dL Hct (39.0-53.0) % Plt Count (150-450) k/uL Neutrophils # (1.3-7.7) k/uL Sodium (137-145) mmol/L BUN (9-20) mg/dL Creatinine (0.66-1.25) mg/dL Glucose (74-99) mg/dL POC Glucose (mg/dL) 134 H 118 H 169 H (75-99) mg/dL Total Protein (6.3-8.2) g/dL Albumin (3.5-5.0) g/dL 09/22/20 Range/Units 09:51 RBC (4.30-5.90) m/uL Hgb (13.0-17.5) gm/dL Hct (39.0-53.0) % Plt Count (150-450) k/uL Neutrophils # (1.3-7.7) k/uL Sodium (137-145) mmol/L BUN (9-20) mg/dL Creatinine (0.66-1.25) mg/dL Glucose (74-99) mg/dL POC Glucose (mg/dL) 174 H (75-99) mg/dL Total Protein (6.3-8.2) g/dL Albumin (3.5-5.0) g/dL - Imaging and Cardiology Chest x-ray: report reviewed, image reviewed Assessment and Plan Assessment: 1. Symptomatic multivessel coronary artery disease, status post triple vessel coronary artery bypass grafting surgery 2. Non-ST elevated myocardial infarction this admission 3. Preoperative new onset atrial fibrillation with RVR, status post clipping of the left atrial appendage with an Atriclip 4. History of hypertension 5. Diabetes mellitus type 2 6. Chronic ongoing tobacco abuse 7. History of hiatal hernia 8. History of sleep apnea 9. COPD with a preoperative FEV1 54% of predicted value 10. Postoperative acute blood loss anemia, expected Plan: 1. Continue to maximize medical therapy with aspirin, Plavix and beta randy. Will increase metoprolol tartrate 25 mg by mouth twice a day. 2. Continue amiodarone 400 mg by mouth twice a day for atrial fibrillation prophylaxis. 3. Wean O2 as tolerated. Continue to encourage use of incentive spirometry 10 times every hour while awake. Bronchodilators per pulmonology/critical care management. 4. Will monitor daily labs and chest x-rays. Electrolytes replacement per protocol. 5. GI/DVT prophylaxis. 6. Pain control with current medication regimen. 7. Diabetes/insulin management per primary care service. 8. Lasix 40 mg IV 1 now. 9. Avoid nephrotoxic agents. 10. Continue to record strict accurate I's and O's. 11. Daily weights using standup scale, no bed scale. 12. Continue Norvasc 2.5 mg by mouth daily at noon for radial artery spasm prophylaxis. Please do not discontinue without discussing with cardiothoracic surgery service. Hold for systolic blood pressure less than 100 mmHg. 13. Keep ventricular epicardial pacemaker wires in place, make round ventricular wires. 14. Increase activity as tolerated, physical/occupational therapy and cardiac rehab following patient. 15. First postoperative day shower today. 16. Cardiology note regarding anticoagulation noted. Once pacemaker wires are removed and if the patient continues to have episodes of atrial fibrillation he will be started on anticoagulation. 17. More recommendations to follow based on patient's clinical course. Nurse practitioner note has been reviewed by the physician. Signing provider agrees with the above documented findings, assessment and plan of care. The patient was seen and examined.. Time with Patient: Greater than 30
[2020-09-22] MEDS: INSULIN ASPART (NovoLOG) 100 UNIT/ML VIAL SQ SCH ×3 (11:47→20:59)
[2020-09-22 11:48] LABS: Glucose,Whole Blood 100 mg/dL (75-99)
[2020-09-22] MEDS: amLODIPine 2.5 MG TAB PO SCH (12:40)
[2020-09-22] MEDS: LACTATED RINGERS 1,000 ML IV SCH (16:00)
--- NOTE | 2020-09-22 16:08 | P.PN ---
Subjective Progress Note Date: 09/22/20 (delayed charting seen at 1015) Principal diagnosis: chest pain Patient is a 70-year-old male with a history of tobacco abuse, hypertension, prediabetes, and COPD who presented to the emergency department with complaints of chest pain. On arrival via EMS he received 2 nitroglycerin and aspirin and had a improvement in his chest pain. In the emergency department he underwent an extensive evaluation. Initial vital signs showed a heart rate of 134 and a blood pressure 42/87. Initial laboratory analysis demonstrated an elevated troponin at 0.086. He was admitted for further management of his new onset atrial fibrillation with rapid ventricular response and non-ST segment elevated myocardial infarction. He was placed on nitro for pain and blood pressure contr ol, Cardizem drip, and a heparin drip. His aspirin was continued. He was also started on a statin. His metformin was held and started on sliding scale insulin. Overnight he converted to normal sinus rhythm and his Cardizem drip was discontinued. His troponin continued to rise to a max of 5.7. He was therefore urgently taken to cardiac catheterization which demonstrated calcified coronary arteries, chronically occluded right coronary artery with collaterals from the left, and critical stenosis in the LAD and a long segment. It was determined that he likely would need cardiac bypass. Echo with EF 45-50%, Carotid dopplers negative for ischemia, Proximal abdominal aortic aneurysm 3.0 cm. He underwent Tripple Vessel CABG on 09/19 he returned to the ICU. E Patient seen and examined at bedside. He is feeling frustrated that he has not progressed more. Breating good, pain controlled, eating and drinking well but not back to normal. General: non toxic, no distress, appears at stated age Derm: warm, dry Head: atraumatic, normocephalic, symmetric Eyes: EOMI, no lid lag, anicteric sclera Mouth: no lip lesion, mucus membranes moist Cardiovascular: S1S2 reg, no murmur, positive posterior tibial pulse bilateral, Lungs: Decreased bs bilateral, no rhonchi, no rales , no accessory muscle use Abdominal: soft, nontender to palpation, no guarding, no appreciable organomegaly Ext: no gross muscle atrophy, trace edema, no contractures Neuro: CN II-XI grossly intact, no focal neuro deficits Psych: Alert, oriented, appropriate affect Non-ST segment elevated myocardial infarction with LAD disease in the setting of diabetes s/p tripple vessel CABG 09/19, systolic cardiomyopathy with ejection fraction 40% -Cardiothoracic and cardiology recommendations -Carotid Dopplers normal -Aspirin, statin, Plavix, BB- due to hypotension also on midodrine - strict I and O, monitor fluid closely. [place] - likely due to hypotension, decreased perfusion from A fib in conjunction with need for NSAIDS for pain control - off toradol - avoid nephrotoxic agents - on midodrine for BP support, MAP >60 - repeat in AM, if not improving renal US - Check post void residuals P. A fib, new onset this admission -Amio, lopressor - tele Acute blood loss anemia - anticipated outcome of surgery - transfuse as indicated - follow CBC Diabetes mellitus type 2 with hyperglycemia -Stop metformin -Insulin gtt discontinued SSI and long acting follow BS closely insulin gtt was at 10 untis per hour -Follow blood sugars - A1c 6.6, Plan for discharge home back on metformin if hyperglycemia improved. If he need insulin short term family can help. Thrombocytopenia - mild - follow CBC - HIT AB negative Abdominal aortic aneurysm 3 cm -Continue outpatient follow-up Hypertension, currently with low BP -Continue with current meds, on midodrine -Follow blood pressures Obesity with BMI 31.6 -Outpatient structured weight loss Tobacco abuse -Cessation DVT prophylaxis: heparin Discussed with: Patient,nursing Anticipated discharge:2-[address]: Home A total of 35 minutes was spent on the care of this complex patient more than 50% of the time was spent in counseling and care coordination. Objective - Vital Signs Vital signs: Vital Signs Temp 98.8 F 09/22/20 15:30 Pulse 95 09/22/20 15:49 Resp 16 09/22/20 15:30 BP 99/59 09/22/20 15:30 Pulse Ox 96 09/22/20 15:30 Intake & Output 09/21/20 09/22/20 09/22/20 18:59 06:59 18:59 Intake Total 1420.228 738.415 380.765 Output Total 415 550 800 Balance 1005.228 188.415 -419.235 Weight 125.1 kg Intake: IV 672 432 214 Albumin Human 5% 250 ml 250 In Empty Bag 1 bag @ 250 mls/hr IVPB Q1HR PRN Rx#: [id number] Lactated Ringers 1,000 ml 350 360 190 @ 20 mls/hr IV .Q24H [facility] Rx#:[id number] pressure bag 72 72 24 Intake, IV Titration 308.228 56.415 26.765 Amount Amiodarone 300 mg In 250 Dextrose 5% in Water 250 ml @ 0.5 MG/MIN 25 mls/hr IV .Q10H [facility] Rx#: [id number] Insulin Regular 100 unit 58.228 56.415 26.765 In Sodium Chloride 0.9% 100 ml @ Per Protocol IV .Q0M [facility] Rx#:[id number] Oral 440 250 140 Output: Chest Tube Drainage 190 Left Pleural/Mediastinal 190 Urine 225 550 800 Other: Voiding Method Urinal Urinal Urinal # Voids 0 0 ABP, PAP, CO, CI - Last Documented Arterial Blood Pressure 111/64 Pulmonary Artery Pressure 29/11 Cardiac Output 8.1 Cardiac Index 3.3 - Labs CBC & Chem 7: 09/22/20 04:40 09/22/20 04:40 Labs: Abnormal Lab Results - Last 24 Hours (Table) 09/21/20 09/21/20 09/21/20 Range/Units 16:03 16:57 19:12 RBC (4.30-5.90) m/uL Hgb (13.0-17.5) gm/dL Hct (39.0-53.0) % Plt Count (150-450) k/uL Neutrophils # (1.3-7.7) k/uL Sodium (137-145) mmol/L BUN (9-20) mg/dL Creatinine (0.66-1.25) mg/dL Glucose (74-99) mg/dL POC Glucose (mg/dL) 169 H 164 H 150 H (75-99) mg/dL Total Protein (6.3-8.2) g/dL Albumin (3.5-5.0) g/dL 09/21/20 09/21/20 09/21/20 Range/Units 20:08 20:54 21:58 RBC (4.30-5.90) m/uL Hgb (13.0-17.5) gm/dL Hct (39.0-53.0) % Plt Count (150-450) k/uL Neutrophils # (1.3-7.7) k/uL Sodium (137-145) mmol/L BUN (9-20) mg/dL Creatinine (0.66-1.25) mg/dL Glucose (74-99) mg/dL POC Glucose (mg/dL) 138 H 129 H 145 H (75-99) mg/dL Total Protein (6.3-8.2) g/dL Albumin (3.5-5.0) g/dL 09/21/20 09/22/20 09/22/20 Range/Units 23:55 04:14 04:40 RBC 3.18 L (4.30-5.90) m/uL Hgb 10.0 L (13.0-17.5) gm/dL Hct 29.9 L (39.0-53.0) % Plt Count 86 L (150-450) k/uL Neutrophils # 8.2 H (1.3-7.7) k/uL Sodium (137-145) mmol/L BUN (9-20) mg/dL Creatinine (0.66-1.25) mg/dL Glucose (74-99) mg/dL POC Glucose (mg/dL) 128 H 128 H (75-99) mg/dL Total Protein (6.3-8.2) g/dL Albumin (3.5-5.0) g/dL 09/22/20 09/22/20 09/22/20 Range/Units 04:40 06:16 07:10 RBC (4.30-5.90) m/uL Hgb (13.0-17.5) gm/dL Hct (39.0-53.0) % Plt Count (150-450) k/uL Neutrophils # (1.3-7.7) k/uL Sodium 133 L (137-145) mmol/L BUN 34 H (9-20) mg/dL Creatinine 1.42 H (0.66-1.25) mg/dL Glucose 125 H (74-99) mg/dL POC Glucose (mg/dL) 134 H 118 H (75-99) mg/dL Total Protein 5.6 L (6.3-8.2) g/dL Albumin 3.3 L (3.5-5.0) g/dL 09/22/20 09/22/20 09/22/20 Range/Units 08:08 09:51 11:46 RBC (4.30-5.90) m/uL Hgb (13.0-17.5) gm/dL Hct (39.0-53.0) % Plt Count (150-450) k/uL Neutrophils # (1.3-7.7) k/uL Sodium (137-145) mmol/L BUN (9-20) mg/dL Creatinine (0.66-1.25) mg/dL Glucose (74-99) mg/dL POC Glucose (mg/dL) 169 H 174 H 100 H (75-99) mg/dL Total Protein (6.3-8.2) g/dL Albumin (3.5-5.0) g/dL
--- NOTE | 2020-09-22 16:18 | P.PN ---
Subjective Progress Note Date: 09/22/20 70-year-old male patient post non-STEMI, remains in the intensive care unit and the patient is being seen in follow-up today. The patient has diabetes mellitus, hypertension, COPD and history of chronic smoking. Cardiac catheterization was done and the patient was found to have significant coronary artery disease and the patient underwent an urgent cardiac revascularization surgery and the patient underwent EGAN to LAD, SVG to RCA, and left radial artery to OM. The patient was subsequently brought into the intensive care units. Hemodynamically, the patient had a cardiac index of 2.1 and output of 5.0. The patient was sedated with propofol. The patient was on a mechanical ventilator in addition to a Cardizem drip at 5 mg an hour, nitroglycerin drip and lactated Ringer that was running at 50 mL an hour. The patient was gradually weaned off the mechanical ventilator per protocol and the patient was extubated and the patient was switched to nasal cannula. Doing well. Awake and alert. On today's evaluation, the patient is awake and alert. The patient is off the Cardizem drip. The patient is off the nitroglycerin drip. The patient is on no pressors. The patient is on lactated Ringer at the rate of 40 mL an hour. The patient is also on insulin drip at 4 units an hour. The patient on 3 L of oxygen by nasal cannula with pulse ox of 95%. Heart rhythm is sinus. Pacemaker backup VVI at 40. No other issues for now. His emanating. Chest x- ray was reviewed. Chest tubes are all in place. On 09/21/2020, Puneet is doing well. No specific complaints. Awake and alert and sitting up on a chair. Pulse ox 97% liters of oxygen by nasal cannula. The patient is a left pleural and mediastinal chest tubes and the drainage is in order of 30 mL an hour. Chest x-ray showing small bilateral pleural effusion. Chest tubes are in good location. He is in a sinus rhythm for now. He did go into atrial fibrillation with rapid ventricular response at around 10 PM. He was given IV amiodarone per protocol and currently amiodarone is running at 0.5 mg per minute. He is back into normal sinus rhythm and he converted at around 6 PM. He is on lactated Ringer at the rate of 30 mL an hour. He is also on insulin drip at 4.5 units an hour. He is using incentive spirometer pulling approximately 750 mL. No specific complaints. No focal logical deficits. Surgical wound site is dry clean and intact. Adequate urine output. He is currently on a combination of aspirin and Plavix and metoprolol. On 09/22/2020, the patient doing well. No complaints. Right-sided chest tube is removed. The chest x-ray showing some limited atelectatic changes. The patient using incentive spirometer. He is pulling more than 1000. Aolnzo catheter is removed. Chest tubes have been removed. Currently on insulin drip at 1 unit an hour. He remains in atrial fibrillation. He converted back into A. fib and the rate is controlled for now. He is currently on room air oxygen and pulse ox is around 96%. He is postop day #3. I noted the rise in the creatinine this needs to be monitored very closely in the creatinine is up to 1.4. He is awake and alert and following commands and answering questions appropriately. No other significant events otherwise for now. Objective - Vital Signs Vital signs: Vital Signs Temp 98.8 F 09/22/20 15:30 Pulse 106 H 09/22/20 15:59 Resp 16 09/22/20 15:30 BP 99/59 09/22/20 15:30 Pulse Ox 96 09/22/20 15:30 Intake & Output 09/21/20 09/22/20 09/22/20 18:59 06:59 18:59 Intake Total 1420.228 738.415 380.765 Output Total 415 550 800 Balance 1005.228 188.415 -419.235 Weight 125.1 kg Intake: IV 672 432 214 Albumin Human 5% 250 ml 250 In Empty Bag 1 bag @ 250 mls/hr IVPB Q1HR PRN Rx#: [id number] Lactated Ringers 1,000 ml 350 360 190 @ 20 mls/hr IV .Q24H [facility] Rx#:[id number] pressure bag 72 72 24 Intake, IV Titration 308.228 56.415 26.765 Amount Amiodarone 300 mg In 250 Dextrose 5% in Water 250 ml @ 0.5 MG/MIN 25 mls/hr IV .Q10H [facility] Rx#: [id number] Insulin Regular 100 unit 58.228 56.415 26.765 In Sodium Chloride 0.9% 100 ml @ Per Protocol IV .Q0M [facility] Rx#:[id number] Oral 440 250 140 Output: Chest Tube Drainage 190 Left Pleural/Mediastinal 190 Urine 225 550 800 Other: Voiding Method Urinal Urinal Urinal # Voids 0 0 ABP, PAP, CO, CI - Last Documented Arterial Blood Pressure 111/64 Pulmonary Artery Pressure 29/11 Cardiac Output 8.1 Cardiac Index 3.3 - Exam - Constitutional General appearance: Present: cooperative, no acute distress, obese - EENT Eyes: Present: normal appearance. Absent: scleral icterus ENT: Present: hearing grossly normal - Neck Details: Neck is supple, no JVD, no lymphadenopathy. Right IJ Cordis in place with continuous CVP monitoring. - Respiratory Details: Lung sounds are essentially clear throughout, few scattered crackles to his bilateral bases. No wheezes or rhonchi. Respirations are symmetrical and nonlabored. Oxygen saturation are 94% on 2 L nasal cannula. Achieving 1000 mL on his incentive spirometry. - Cardiovascular Details: Irregular rhythm and tachycardic rate. S1 and S2 present, negative for S3, gallop or murmur. Sternum is stable. Bedside telemetry showing atrial fibrillation heart rate 101 BPM. Ventricular epicardial pacemaker wires in place and grounded. Right IJ Cordis in place with continuous CVP monitoring, current CVP pressure 16 mmHg. Knee-high FLOYD hose and sequential compression devices in placed to his bilateral lower extremities. Heart hugger is in place and he is demonstrating appropriate use. No edema present. - Gastrointestinal Gastrointestinal Comment(s): Abdomen is soft, nontender and nondistended. Active bowel sounds present in all 4 abdominal quadrants. No guarding or rigidity. No aortic megaly appreciated. Tolerating oral intake. Passing flatus. - Genitourinary Genitourinary Comment(s): Continues to void. - Integumentary Integumentary Comment(s): Skin is warm and dry. No clubbing or cyanosis is present. Midline sternal incision is clean, dry and approximated. No drainage or redness is present. Left arm radial artery harvest sites clean, dry and approximated. No drainage or redness present. Ulnar pulse palpable. Left hand warm to touch. Bilateral lower extremity EVH site clean, dry and approximated. No drainage or redness is present. - Neurologic Neurologic: Present: CNII-XII intact - Musculoskeletal Musculoskeletal: Present: gait normal, generalized weakness, strength equal bilaterally - Psychiatric Psychiatric: Present: A&O x's 3, appropriate affect, intact judgment & insight - Labs CBC & Chem 7: 09/22/20 04:40 09/22/20 04:40 Labs: Abnormal Lab Results - Last 24 Hours (Table) 09/21/20 09/21/20 09/21/20 Range/Units 16:57 19:12 20:08 RBC (4.30-5.90) m/uL Hgb (13.0-17.5) gm/dL Hct (39.0-53.0) % Plt Count (150-450) k/uL Neutrophils # (1.3-7.7) k/uL Sodium (137-145) mmol/L BUN (9-20) mg/dL Creatinine (0.66-1.25) mg/dL Glucose (74-99) mg/dL POC Glucose (mg/dL) 164 H 150 H 138 H (75-99) mg/dL Total Protein (6.3-8.2) g/dL Albumin (3.5-5.0) g/dL 09/21/20 09/21/20 09/21/20 Range/Units 20:54 21:58 23:55 RBC (4.30-5.90) m/uL Hgb (13.0-17.5) gm/dL Hct (39.0-53.0) % Plt Count (150-450) k/uL Neutrophils # (1.3-7.7) k/uL Sodium (137-145) mmol/L BUN (9-20) mg/dL Creatinine (0.66-1.25) mg/dL Glucose (74-99) mg/dL POC Glucose (mg/dL) 129 H 145 H 128 H (75-99) mg/dL Total Protein (6.3-8.2) g/dL Albumin (3.5-5.0) g/dL 09/22/20 09/22/20 09/22/20 Range/Units 04:14 04:40 04:40 RBC 3.18 L (4.30-5.90) m/uL Hgb 10.0 L (13.0-17.5) gm/dL Hct 29.9 L (39.0-53.0) % Plt Count 86 L (150-450) k/uL Neutrophils # 8.2 H (1.3-7.7) k/uL Sodium 133 L (137-145) mmol/L BUN 34 H (9-20) mg/dL Creatinine 1.42 H (0.66-1.25) mg/dL Glucose 125 H (74-99) mg/dL POC Glucose (mg/dL) 128 H (75-99) mg/dL Total Protein 5.6 L (6.3-8.2) g/dL Albumin 3.3 L (3.5-5.0) g/dL 09/22/20 09/22/20 09/22/20 Range/Units 06:16 07:10 08:08 RBC (4.30-5.90) m/uL Hgb (13.0-17.5) gm/dL Hct (39.0-53.0) % Plt Count (150-450) k/uL Neutrophils # (1.3-7.7) k/uL Sodium (137-145) mmol/L BUN (9-20) mg/dL Creatinine (0.66-1.25) mg/dL Glucose (74-99) mg/dL POC Glucose (mg/dL) 134 H 118 H 169 H (75-99) mg/dL Total Protein (6.3-8.2) g/dL Albumin (3.5-5.0) g/dL 09/22/20 09/22/20 Range/Units 09:51 11:46 RBC (4.30-5.90) m/uL Hgb (13.0-17.5) gm/dL Hct (39.0-53.0) % Plt Count (150-450) k/uL Neutrophils # (1.3-7.7) k/uL Sodium (137-145) mmol/L BUN (9-20) mg/dL Creatinine (0.66-1.25) mg/dL Glucose (74-99) mg/dL POC Glucose (mg/dL) 174 H 100 H (75-99) mg/dL Total Protein (6.3-8.2) g/dL Albumin (3.5-5.0) g/dL Assessment and Plan Plan: 1 Non-ST segment elevation myocardial infarction with significant triple-vessel disease. Status post coronary revascularization with EGAN to the LAD, left radial arterial graft to the obtuse marginal branch, saphenous vein graft to the RCA. Postoperative day # 3. The patient is hemodynamically stable on no pressors. The patient on a combination of aspirin and Plavix and beta blockers. 2 post thoracotomy, and the patient was weaned off the mechanical ventilator and the patient was extubated and currently the patient on room air oxygen. 3 new-onset atrial fibrillation with rapid ventricular response, currently rate is controlled for now. 4 Diabetes mellitus, type II 5 COPD secondary to Chronic tobacco dependence and a preop FEV1 of 54% of predicted 6 Hypertension 7 obstructive sleep apnea. 8 hiatal hernia 9 acute kidney injury Plan Chest tubes have been removed Patient is currently on room air oxygen Continue aspirin and Plavix and beta blockers Continue using incentive spirometer Switch this patient to a long-acting insulin along with a sliding scale coverage for blood sugar control Continue aspirin, Plavix, metoprolol 25 mg twice a day and Norvasc 2.5 mg by mouth daily Consider anti-coagulation after removal of the pacemaker wires We'll keep the patient ICU for 24 hours and will continue to follow.
[2020-09-22 17:14] LABS: Glucose,Whole Blood 136 mg/dL (75-99)
[2020-09-22 20:13] LABS: Glucose,Whole Blood 163 mg/dL (75-99)
[2020-09-22] MEDS: METOPROLOL TARTRATE 25 MG TAB PO SCH (20:58)
[2020-09-22] MEDS: INSULIN DETEMIR (LEVEMIR) 100 UNIT/ML SYR SQ SCH (20:59)
[2020-09-22] MEDS: SENNOSIDES-DOCUSATE SODIUM 1 EACH TAB PO SCH (20:59)
[2020-09-22] MEDS: ATORVASTATIN 80 MG TAB PO SCH (20:59)
[2020-09-23 02:00] LABS: Glucose,Whole Blood 129 mg/dL (75-99)
[2020-09-23] MEDS: HEPARIN SODIUM,PORCINE 5,000 UNIT/ML 1 ML VIAL SQ SCH (03:16)
[2020-09-23 06:31] LABS: Glucose,Whole Blood 131 mg/dL (75-99)
[2020-09-23] MEDS: INSULIN ASPART (NovoLOG) 100 UNIT/ML VIAL SQ SCH ×4 (06:49→22:17)
[2020-09-23] MEDS: PANTOPRAZOLE 40 MG TABLET PO SCH (06:49)
[2020-09-23] MEDS: MIDODRINE 5 MG TAB PO SCH ×3 (06:49→17:13)
--- NOTE | 2020-09-23 07:14 | XR ---
EXAMINATION TYPE: XR chest 1V portable DATE OF EXAM: 09/23/2020 COMPARISON: Prior chest x-ray 09/22/2020 HISTORY: Postop coronary artery bypass graft TECHNIQUE: Single frontal view of the chest is obtained. FINDINGS: Patient is post median sternotomy and left atrial appendage clipping placement. There are overlying cardiac leads. Pleural parenchymal changes are similar. Heart remains enlarged. No sizable pneumothorax. IMPRESSION: No significant change compared to prior exam. Probable basilar atelectasis, possible sma ll right pleural effusion.
[2020-09-23 07:15] LABS: HCT 32.4 % (39.0-53.0); HGB 10.7 gm/dL (13.0-17.5); MCH 31.4 pg (25.0-35.0); MCHC 33.1 g/dL (31.0-37.0); MCV 94.7 fL (80.0-100.0); Mean Platelet Volume 9.6; Platelet Count 125 k/uL (150-450); RBC 3.42 m/uL (4.30-5.90); RDW 13.4 % (11.5-15.5); WBC 9.3 k/uL (3.8-10.6)
[2020-09-23 07:29] LABS: Calcium 8.7 mg/dL (8.4-10.2); Potassium 4.2 mmol/L (3.5-5.1)
[2020-09-23] MEDS: NON FORMULARY DRUG (Fluticasone/Umeclidin/Vilanter [Trelegy Ellipta 100-62.5-25] 1 EACH Bl INHALATION SCH (07:41)
[2020-09-23] MEDS: HEPARIN SOD,PORK IN 0.45% NACL 25,000 UNIT in 0.45% NACL 1 250ML.BAG IV SCH (07:42)
[2020-09-23] MEDS: AMIODARONE 200 MG TAB PO SCH ×2 (08:09→21:36)
[2020-09-23] MEDS: CLOPIDOGREL 75 MG TAB PO SCH (08:09)
[2020-09-23] MEDS: ASPIRIN 325 MG TAB PO SCH (08:10)
[2020-09-23] MEDS: METOPROLOL TARTRATE 25 MG TAB PO SCH ×3 (08:10→21:36)
[2020-09-23] MEDS: IPRATROPIUM-ALBUTEROL 3 ML NEB INHALATION SCH ×4 (08:47→22:14)
[2020-09-23] MEDS: FUROSEMIDE 10 MG/ML 4 ML VIAL IV SCH ×2 (08:59→21:37)
[2020-09-23] MEDS: guaiFENesin 600 MG TABLET.ER PO SCH ×2 (08:59→21:36)
[2020-09-23] MEDS ORDERED: APIXABAN 2.5 MG TABLET PO SCH (09:00)
[2020-09-23] MEDS: POTASSIUM CHLORIDE ER 20 MEQ TAB.ER PO SCH (09:00)
--- NOTE | 2020-09-23 10:10 | PN ---
PROGRESS NOTE Mr. Lindsey is a 70-year-old male who presented with a non ST-segment elevation myocardial infarction, episode of atrial fibrillation, underwent coronary bypass grafting. He has a history of diabetes and chronic tobacco use. He is in atrial fibrillation this morning. He continues to have episode of dyspnea on exertion, although overall he thinks better than before. He denies any chest pain. He denies any dizziness. He denies any palpitation. He continues to be on amiodarone 400 mg twice a day, amlodipine 2.5 mg daily, aspirin once a day, Lipitor 80 mg daily, Plavix 75 mg daily and metoprolol tartrate 25 mg twice a day. PHYSICAL EXAMINATION: Blood pressure 102/59 with a heart rate in the 90s. LUNGS: With decreased air exchange. No wheezes. HEART: Irregular, regular, S1, S2. No S3 with no rub. ABDOMEN: Soft, nontender. EXTREMITIES: No edema. LAB DATA: Revealed BUN and creatinine 70 and 1.29, potassium 10.7. IMPRESSION: 1. Status post coronary artery bypass grafting. 2. Status post non ST-segment elevation myocardial infarction. 3. Atrial fibrillation paroxysmal. 4. Prior history of smoking with chronic obstructive lung disease. 5. Diabetes mellitus. 6. Acute renal injury, improving. 7. History of hypertension. RECOMMENDATION: I would recommend to stop the Plavix and change the aspirin to 81 mg daily. Consider start anticoagulation today. I will cut down the dose of the aspirin to 81 mg daily, increase his level of activity. I have discussed those findings with the cardiovascular team. If he remains in atrial fibrillation in 4 weeks, then I would recommend to proceed with cardioversion. MMODL / IJN: [id number] /
--- NOTE | 2020-09-23 11:00 | ECHOF ---
Referral Reason:assess LV fxn MEASUREMENTS -------- HEIGHT: 190.5 cm WEIGHT: 123.4 kg BP: 102/59 FINDINGS -------- This was a technically difficult study with suboptimal views. Overall left ventricular systolic function is mild-moderately impaired with, an EF between 40 - 45 %. There is a moderate pericardial effusion located near the left ventricle. Lumason used CONCLUSIONS -------- 1. This was a technically difficult study with suboptimal views. 2. Lumason used 3. There is a moderate pericardial effusion located near the left ventricle. GRANTS ASSISTANT: Nat Fregoso RDCS
[2020-09-23 11:57] LABS: Glucose,Whole Blood 138 mg/dL (75-99)
[2020-09-23] MEDS: amLODIPine 2.5 MG TAB PO SCH (11:58)
[2020-09-23] MEDS: Fluticasone/Umeclidin/Vilanter [Trelegy Ellipta 100-62.5-25] INHALATION SCH (12:27)
--- NOTE | 2020-09-23 12:36 | P.PN ---
Subjective Progress Note Date: 09/23/20 Principal diagnosis: Symptomatic multivessel coronary artery disease, non-ST elevated myocardial infarction this admission, new-onset preoperative atrial fibrillation with RVR. Past medical history significant for hypertension, diabetes mellitus type 2, COPD with a preoperative FEV1 of 54% of predicted value, chronic ongoing tobacco abuse, history of hiatal hernia and history of sleep apnea. POD #4 coronary artery bypass grafting 3 with left internal mammary artery to left anterior setting coronary artery, reverse greater saphenous vein graft off the aorta to the posterior ventricular branch of the right coronary artery and a radial artery off the aorta to the circumflex coronary artery. Bilateral lower extremity greater saphenous vein endoscopic harvesting, endoscopic left radial artery harvest, clip ligation of the left atrial appendage using a 35 mm Atriclip and intraoperative transesophageal echocardiogram. Postoperative acute blood loss anemia, expected given hemodilution and cardiopulmonary bypass. Postoperative paroxysmal atrial fibrillation, expected as the patient had preoperative atrial fibrillation. The patient was seen in follow-up today 09/23/2020 at his bedside on the cardiac stepdown unit. He is awake, alert and oriented 3, sitting up to the bedside chair and is in no acute distress. The patient reports she had just gotten back from using the restroom and is complaining of some shortness of breath and is having a hard time completing a sentence with his breathing. He reports once he can't sit down for a bit his breathing recovers. Denies any complaints of pain at this time. He reports he has been ambulating in the cardiac stepdown unit hallway with minimal assistance from nursing staff, although he has to take frequent breaks due to his breathing. He remains hemodynamically stable and is currently on no inotropic or pressor support, remote telemetry showing atrial fibrillation heart rate 91 bpm, blood pressure is 124/75 with a map of 91 and he is 99% on room air. Achieving 1000 mL on his incentive spirometry. He reports he had a bowel movement this morning. He has been tolerating oral intake. Objective - Vital Signs Vital signs: Vital Signs Temp 97.9 F 09/23/20 08:00 Pulse 90 09/23/20 08:56 Resp 19 09/23/20 08:00 BP 124/75 09/23/20 08:00 Pulse Ox 100 09/23/20 08:00 Intake & Output 09/22/20 09/23/20 09/23/20 18:59 06:59 18:59 Intake Total 480.765 540 180 Output Total 1118 200 650 Balance -637.235 340 -470 Weight 123.6 kg Intake: IV 214 Lactated Ringers 1,000 ml 190 @ 20 mls/hr IV .Q24H [facility] Rx#:[id number] pressure bag 24 Intake, IV Titration 26.765 Amount Insulin Regular 100 unit 26.765 In Sodium Chloride 0.9% 100 ml @ Per Protocol IV .Q0M [facility] Rx#:[id number] Oral 240 540 180 Output: Urine 1100 200 650 Post Void Residual 18 Other: Voiding Method Urinal Toilet Urinal # Voids 0 1 1 # Bowel Movements 0 0 1 ABP, PAP, CO, CI - Last Documented Arterial Blood Pressure 111/64 Pulmonary Artery Pressure 29/11 Cardiac Output 8.1 Cardiac Index 3.3 - Constitutional General appearance: Present: cooperative, no acute distress, obese - EENT Eyes: Present: normal appearance. Absent: scleral icterus ENT: Present: hearing grossly normal - Neck Details: Neck is supple, no JVD, no lymphadenopathy. - Respiratory Details: Lung sounds diminished to his bilateral bases, expiratory wheezes throughout. No rhonchi or crackles. Respirations are symmetrical and nonlabored. Oxygen saturation 99% on room air. Achieving 1000 mL on his incentive spirometry. - Cardiovascular Details: Irregular rhythm with controlled rate. S1 and S2 present, negative for S3, gallop or murmur. Sternum is stable. Remote telemetry showing atrial fibrillation heart rate 91 BPM. Knee-high FLOYD hose and sequential compression devices in place to his bilateral lower extremities. Heart hugger is in place and he is demonstrating appropriate use. Atrial epicardial pacemaker wires in place and grounded. - Gastrointestinal Gastrointestinal Comment(s): Abdomen is soft, nontender and nondistended. Active bowel sounds present in all 4 abdominal quadrants. No guarding or rigidity. Tolerating oral intake. Bowel movement this a.m. - Genitourinary Genitourinary Comment(s): Continues to void. 500 mL output in the last 8 hours. - Integumentary Integumentary Comment(s): Skin is warm and dry. No clubbing or cyanosis is present. Midline sternal incision is clean, dry and approximated. No drainage or redness is present. Left arm radial artery harvest sites clean, dry and approximated. No drainage redness is present. Bilateral lower extremity EVH sites are clean, dry and approximated. No drainage redness present. - Neurologic Neurologic: Present: CNII-XII intact - Musculoskeletal Musculoskeletal: Present: gait normal, strength equal bilaterally - Psychiatric Psychiatric: Present: A&O x's 3, appropriate affect, intact judgment & insight - Allied health notes Allied health notes reviewed: nursing - Labs CBC & Chem 7: 09/23/20 07:00 09/23/20 07:00 Labs: Abnormal Lab Results - Last 24 Hours (Table) 09/22/20 09/22/20 09/23/20 Range/Units 17:12 20:11 01:58 RBC (4.30-5.90) m/uL Hgb (13.0-17.5) gm/dL Hct (39.0-53.0) % Plt Count (150-450) k/uL BUN (9-20) mg/dL Creatinine (0.66-1.25) mg/dL Glucose (74-99) mg/dL POC Glucose (mg/dL) 136 H 163 H 129 H (75-99) mg/dL 09/23/20 09/23/20 09/23/20 Range/Units 06:29 07:00 07:00 RBC 3.42 L (4.30-5.90) m/uL Hgb 10.7 L (13.0-17.5) gm/dL Hct 32.4 L (39.0-53.0) % Plt Count 125 L (150-450) k/uL BUN 39 H (9-20) mg/dL Creatinine 1.29 H (0.66-1.25) mg/dL Glucose 120 H (74-99) mg/dL POC Glucose (mg/dL) 131 H (75-99) mg/dL 09/23/20 Range/Units 11:55 RBC (4.30-5.90) m/uL Hgb (13.0-17.5) gm/dL Hct (39.0-53.0) % Plt Count (150-450) k/uL BUN (9-20) mg/dL Creatinine (0.66-1.25) mg/dL Glucose (74-99) mg/dL POC Glucose (mg/dL) 138 H (75-99) mg/dL - Imaging and Cardiology Chest x-ray: report reviewed, image reviewed Assessment and Plan Assessment: 1. Symptomatic multivessel coronary artery disease, status post triple vessel coronary artery bypass grafting surgery 2. Non-ST elevated myocardial infarction this admission 3. Preoperative new onset atrial fibrillation with RVR, status post clipping of the left atrial appendage with an Atriclip 4. History of hypertension 5. Diabetes mellitus type 2 6. Chronic ongoing tobacco abuse 7. History of hiatal hernia 8. History of sleep apnea 9. COPD with a preoperative FEV1 54% of predicted value 10. Postoperative acute blood loss anemia, expected Plan: 1. Continue to maximize medical therapy with low dose aspirin, and beta randy. Will increase metoprolol tartrate 25 mg by mouth 3 times a day. 2. Continue amiodarone 400 mg by mouth twice a day for atrial fibrillation prophylaxis. 3. Continue to encourage use of incentive spirometry 10 times every hour while awake. Bronchodilators per pulmonology/critical care management. 4. Will monitor daily labs and chest x-rays. Electrolytes replacement per protocol. 5. GI/DVT prophylaxis. 6. Pain control with current medication regimen. 7. Diabetes/insulin management per primary care service. 8. Lasix 40 mg IV every 12 hours 4 doses. Start potassium chloride 20 mEq by mouth daily 2 doses. 9. Avoid nephrotoxic agents. 10. Continue to record strict accurate I's and O's. 11. Daily weights using standup scale, no bed scale. 12. Continue Norvasc 2.5 mg by mouth daily at noon for radial artery spasm prophylaxis. Please do not discontinue without discussing with cardiothoracic surgery service. Hold for systolic blood pressure less than 100 mmHg. 13. Ventricular epicardial pacemaker wires removed without incident. The patient will be on bed rest for 1 hour post pacemaker wire removal. 14. Increase activity as tolerated, physical/occupational therapy and cardiac rehab following patient. 15. We will obtain a limited 2-D echocardiogram to assess LV function, as the patient is having some episodes of shortness of breath with activity. 16. He has been started on Eliquis 2.5 mg by mouth twice a day for an ticoagulation. 17. More recommendations to follow based on patient's clinical course. Nurse practitioner note has been reviewed by the physician. Signing provider agrees with the above documented findings, assessment and plan of care. The patient was seen and examined. Time with Patient: Greater than 30
--- NOTE | 2020-09-23 14:57 | P.PN ---
Subjective Progress Note Date: 09/23/20 Principal diagnosis: Coronary artery disease, non-ST segment elevation myocardial infarction Patient is seen today 09/23/2020 in follow-up on the selective care unit. He is currently sitting up in bed. Awake and alert in no acute distress. He was quite short of breath earlier this morning. He received some IV Lasix and breathing treatment currently he is doing better but still with an end expiratory wheeze. He is dyspneic with exertion. Continues to maintain good O2 saturations in the mid 90s on room air. He's been afebrile. He did have postop A. fib with rapid ventricular rate. He is currently on an amiodarone drip at 0.5 mg/m. He is on oral beta blockers. His Lasix as scheduled now at 40 mg IV every 12 hours. Repeat limited echocardiogram today revealed mild to moderately impaired left ventricular systolic function with ejection fraction 40-45%. There is a moderate pericardial effusion noted near the left ventricle. White count 9.3. Hemoglobin 10.7. Platelet count 125. Sodium 139. Potassium 4.2. Creatinine 1.29. Chest x-ray reveals pleural parenchymal changes. No change compared. Objective - Vital Signs Vital signs: Vital Signs Temp 97.9 F 09/23/20 08:00 Pulse 65 09/23/20 12:33 Resp 19 09/23/20 12:00 BP 96/57 09/23/20 12:00 Pulse Ox 96 09/23/20 12:00 Intake & Output 09/22/20 09/23/20 09/23/20 18:59 06:59 18:59 Intake Total 480.765 540 420 Output Total 1118 200 650 Balance -637.235 340 -230 Weight 123.6 kg Intake: IV 214 Lactated Ringers 1,000 ml 190 @ 20 mls/hr IV .Q24H [facility] Rx#:[id number] pressure bag 24 Intake, IV Titration 26.765 Amount Insulin Regular 100 unit 26.765 In Sodium Chloride 0.9% 100 ml @ Per Protocol IV .Q0M [facility] Rx#:[id number] Oral 240 540 420 Output: Urine 1100 200 650 Post Void Residual 18 Other: Voiding Method Urinal Toilet Urinal # Voids 0 1 1 # Bowel Movements 0 0 1 ABP, PAP, CO, CI - Last Documented Arterial Blood Pressure 111/64 Pulmonary Artery Pressure 29/11 Cardiac Output 8.1 Cardiac Index 3.3 - Exam GENERAL EXAM: Awake, alert very pleasant 70-year-old gentleman, on room air, comfortable in no apparent distress. HEAD: Normocephalic. EYES: Sluggish reaction of pupils, equal size. NOSE: Clear with pink turbinates. THROAT: Oral endotracheal and gastric tube secured in place. No erythema or exudates. NECK: No masses, no JVD. CHEST: Sternal dressing dry and intact. Heart Hugger are in place LUNGS: Equal air entry with basilar crackles CVS: S1 and S2 normal with no audible murmur, regular rhythm. ABDOMEN: No hepatosplenomegaly, normal bowel sounds, no guarding or rigidity. SPINE: No scoliosis or deformity SKIN: No rashes CENTRAL NERVOUS SYSTEM: Sedated, tone is normal in all 4 extremities. EXTREMITIES: There is no peripheral edema. No clubbing, no cyanosis. Peripheral pulses are intact. - Labs CBC & Chem 7: 09/23/20 07:00 09/23/20 07:00 Labs: Abnormal Lab Results - Last 24 Hours (Table) 09/22/20 09/22/20 09/23/20 Range/Units 17:12 20:11 01:58 RBC (4.30-5.90) m/uL Hgb (13.0-17.5) gm/dL Hct (39.0-53.0) % Plt Count (150-450) k/uL BUN (9-20) mg/dL Creatinine (0.66-1.25) mg/dL Glucose (74-99) mg/dL POC Glucose (mg/dL) 136 H 163 H 129 H (75-99) mg/dL 09/23/20 09/23/20 09/23/20 Range/Units 06:29 07:00 07:00 RBC 3.42 L (4.30-5.90) m/uL Hgb 10.7 L (13.0-17.5) gm/dL Hct 32.4 L (39.0-53.0) % Plt Count 125 L (150-450) k/uL BUN 39 H (9-20) mg/dL Creatinine 1.29 H (0.66-1.25) mg/dL Glucose 120 H (74-99) mg/dL POC Glucose (mg/dL) 131 H (75-99) mg/dL 09/23/20 Range/Units 11:55 RBC (4.30-5.90) m/uL Hgb (13.0-17.5) gm/dL Hct (39.0-53.0) % Plt Count (150-450) k/uL BUN (9-20) mg/dL Creatinine (0.66-1.25) mg/dL Glucose (74-99) mg/dL POC Glucose (mg/dL) 138 H (75-99) mg/dL Assessment and Plan Assessment: 1 Non-ST segment elevation myocardial infarction with significant triple-vessel disease. Status post coronary revascularization with EGAN to the LAD, left radial arterial graft to the obtuse marginal branch, saphenous vein graft to the RCA. 2 Acute hypoxic respiratory failure requiring intubation mechanical ventilatory support, expected outcome of surgery and recovered and on room air 3 Atrial fibrillation 4 Diabetes mellitus 5 Chronic tobacco dependence 6 Hypertension 7 Moderate pericardial effusion, an expected outcome of surgery Plan: The patient was seen and evaluated by Dr. Perez Chest x-ray and labs reviewed Receiving IV diuretics Echocardiogram reviewed Increase use of the incentive spirometer and cough and deep breathing exercises Continue bronchodilators We will continue to follow make further recommendations based on his clinical status I, the cosigning physician, performed a history & physical examination of the patient. Lungs sounds basilar crackles. Maintaining good O2 saturations in the 90s on room air. I discussed the assessment and plan of care with my nurse practitioner, Patricia Munguia. I attest to the above note as dictated by her.
--- NOTE | 2020-09-23 15:02 | P.PN ---
Subjective Progress Note Date: 09/23/20 Principal diagnosis: NSTEMI Patient is complaining from sob with any activity. He is ok if he stays in bed. No chest pain. No dizziness. No nausea or vomiting. Objective - Vital Signs Vital signs: Vital Signs Temp 97.9 F 09/23/20 08:00 Pulse 65 09/23/20 12:33 Resp 19 09/23/20 12:00 BP 96/57 09/23/20 12:00 Pulse Ox 96 09/23/20 12:00 Intake & Output 09/22/20 09/23/20 09/23/20 18:59 06:59 18:59 Intake Total 480.765 540 420 Output Total 1118 200 650 Balance -637.235 340 -230 Weight 123.6 kg Intake: IV 214 Lactated Ringers 1,000 ml 190 @ 20 mls/hr IV .Q24H [facility] Rx#:[id number] pressure bag 24 Intake, IV Titration 26.765 Amount Insulin Regular 100 unit 26.765 In Sodium Chloride 0.9% 100 ml @ Per Protocol IV .Q0M [facility] Rx#:[id number] Oral 240 540 420 Output: Urine 1100 200 650 Post Void Residual 18 Other: Voiding Method Urinal Toilet Urinal # Voids 0 1 1 # Bowel Movements 0 0 1 ABP, PAP, CO, CI - Last Documented Arterial Blood Pressure 111/64 Pulmonary Artery Pressure 29/11 Cardiac Output 8.1 Cardiac Index 3.3 - Exam General: non toxic, no distress, appears at stated age Derm: warm, dry Head: atraumatic, normocephalic, symmetric Eyes: EOMI, no lid lag, anicteric sclera Mouth: no lip lesion, mucus membranes moist Cardiovascular: S1S2 reg, no murmur, positive posterior tibial pulse bilateral, Lungs: Decreased bs bilateral, no rhonchi, no rales , no accessory muscle use Abdominal: soft, nontender to palpation, no guarding, no appreciable organomegaly Ext: no gross muscle atrophy, trace edema, no contractures Neuro: CN II-XI grossly intact, no focal neuro deficits Psych: Alert, oriented, appropriate affect - Labs CBC & Chem 7: 09/23/20 07:00 09/23/20 07:00 Labs: Abnormal Lab Results - Last 24 Hours (Table) 09/22/20 09/22/20 09/23/20 Range/Units 17:12 20:11 01:58 RBC (4.30-5.90) m/uL Hgb (13.0-17.5) gm/dL Hct (39.0-53.0) % Plt Count (150-450) k/uL BUN (9-20) mg/dL Creatinine (0.66-1.25) mg/dL Glucose (74-99) mg/dL POC Glucose (mg/dL) 136 H 163 H 129 H (75-99) mg/dL 09/23/20 09/23/20 09/23/20 Range/Units 06:29 07:00 07:00 RBC 3.42 L (4.30-5.90) m/uL Hgb 10.7 L (13.0-17.5) gm/dL Hct 32.4 L (39.0-53.0) % Plt Count 125 L (150-450) k/uL BUN 39 H (9-20) mg/dL Creatinine 1.29 H (0.66-1.25) mg/dL Glucose 120 H (74-99) mg/dL POC Glucose (mg/dL) 131 H (75-99) mg/dL 09/23/20 Range/Units 11:55 RBC (4.30-5.90) m/uL Hgb (13.0-17.5) gm/dL Hct (39.0-53.0) % Plt Count (150-450) k/uL BUN (9-20) mg/dL Creatinine (0.66-1.25) mg/dL Glucose (74-99) mg/dL POC Glucose (mg/dL) 138 H (75-99) mg/dL Assessment and Plan Plan: Non-ST segment elevated myocardial infarction with LAD disease in the setting of diabetes s/p tripple vessel CABG 09/19, systolic cardiomyopathy with ejection fraction 40% -Cardiothoracic and cardiology recommendations -Carotid Dopplers normal -Aspirin, statin, BB - strict I and O, monitor fluid closely. [place] - likely due to hypotension, decreased perfusion from A fib in conjunction with need for NSAIDS for pain control - off toradol - Improved. - avoid nephrotoxic agents - on midodrine for BP support, MAP >60 P. A fib, new onset this admission -Amio, lopressor increased by cardio to 25mg TID - tele SOB ? pericardial effusion showing up on the echo CXR ok Started on lasix. Follow clinically. Acute blood loss anemia - anticipated outcome of surgery - transfuse as indicated, hgb stable Diabetes mellitus type 2 with hyperglycemia -Stop metformin -Insulin SS with levemir 20 units daily - A1c 6.6, Plan for discharge home back on metformin if hyperglycemia improved. If he need insulin short term family can help. Thrombocytopenia - mild - follow CBC - HIT AB negative Abdominal aortic aneurysm 3 cm -Continue outpatient follow-up Hypertension, currently with low BP -Continue with current meds, on midodrine -Follow blood pressures Obesity with BMI 31.6 -Outpatient structured weight loss Tobacco abuse -Cessation DVT prophylaxis: heparin Discussed with: Patient Anticipated discharge:2-[address]: Home A total of 35 minutes was spent on the care of this complex patient more than 50% of the time was spent in counseling and care coordination.
[2020-09-23 16:50] LABS: Glucose,Whole Blood 121 mg/dL (75-99)
[2020-09-23 20:47] LABS: Glucose,Whole Blood 167 mg/dL (75-99)
[2020-09-23] MEDS: ATORVASTATIN 80 MG TAB PO SCH (21:37)
[2020-09-23] MEDS: SENNOSIDES-DOCUSATE SODIUM 1 EACH TAB PO SCH (21:38)
[2020-09-23] MEDS: INSULIN DETEMIR (LEVEMIR) 100 UNIT/ML SYR SQ SCH (22:17)
[2020-09-24 02:06] LABS: Glucose,Whole Blood 112 mg/dL (75-99)
[2020-09-24 06:38] LABS: Glucose,Whole Blood 104 mg/dL (75-99)
[2020-09-24] MEDS: MIDODRINE 5 MG TAB PO SCH (06:49)
--- NOTE | 2020-09-24 07:53 | XR ---
EXAMINATION TYPE: XR chest 1V portable DATE OF EXAM: 09/24/2020 COMPARISON: 09/23/2020 INDICATION: Postop CABG TECHNIQUE: Single frontal view of the chest is obtained. FINDINGS: The heart size is prominent. The pulmonary vasculature is prominent. Mild right lower lobe infiltrate is present. Small right pleural effusion is likely present Findings are stable. Sternotomy wires are present from the patient's CABG. IMPRESSION: 1. Mild stable right lower lobe infiltrate. Minimal effusion may be present.
[2020-09-24] MEDS: INSULIN ASPART (NovoLOG) 100 UNIT/ML VIAL SQ SCH ×4 (07:55→12:47)
[2020-09-24 07:56] VITALS: TEMP 98.1
[2020-09-24] MEDS: METOPROLOL TARTRATE 25 MG TAB PO SCH ×2 (08:05→08:55)
[2020-09-24] MEDS: NITROGLYCERIN OINT 1 INCH/GM PACKET TOPICAL SCH (08:05)
[2020-09-24] MEDS: MUPIROCIN 2% OINT 22 GM TUBE NASAL SCH (08:05)
[2020-09-24] MEDS: PANTOPRAZOLE 40 MG TABLET PO SCH (08:55)
[2020-09-24] MEDS: AMIODARONE 200 MG TAB PO SCH (08:55)
[2020-09-24] MEDS: guaiFENesin 600 MG TABLET.ER PO SCH (08:55)
[2020-09-24] MEDS: FUROSEMIDE 10 MG/ML 4 ML VIAL IV SCH (08:56)
[2020-09-24] MEDS: POTASSIUM CHLORIDE ER 20 MEQ TAB.ER PO SCH (08:56)
[2020-09-24] MEDS ORDERED: COLCHICINE 0.6 MG EACH PO SCH (09:00)
[2020-09-24] MEDS ORDERED: ASPIRIN 81 MG PO SCH (09:00)
[2020-09-24] MEDS: NON FORMULARY DRUG (Fluticasone/Umeclidin/Vilanter [Trelegy Ellipta 100-62.5-25] 1 EACH Bl INHALATION SCH (09:03)
[2020-09-24] MEDS: IPRATROPIUM-ALBUTEROL 3 ML NEB INHALATION SCH ×2 (09:08→11:45)
[2020-09-24 09:24] LABS: HCT 34.7 % (39.0-53.0); HGB 9.6 gm/dL (13.0-17.5); Hypochromasia Slight; MCHC 27.7 g/dL (31.0-37.0); MCV 97.4 fL (80.0-100.0); Mean Platelet Volume 9.4; Platelet Count 166 k/uL (150-450); RBC 3.56 m/uL (4.30-5.90); RDW 13.8 % (11.5-15.5); WBC 7.7 k/uL (3.8-10.6)
[2020-09-24] MEDS ORDERED: APIXABAN 2.5 MG TABLET PO SCH (09:30)
[2020-09-24] MEDS: Fluticasone/Umeclidin/Vilanter [Trelegy Ellipta 100-62.5-25] INHALATION SCH (10:01)
[2020-09-24 10:06] LABS: Calcium 8.5 mg/dL (8.4-10.2); Magnesium 2.2 mg/dL (1.6-2.3); Potassium 4.4 mmol/L (3.5-5.1)
--- NOTE | 2020-09-24 10:22 | PN ---
PROGRESS NOTE Mr. Lindsey is a 70-year-old male who presented with non ST-segment elevation myocardial infarction, had episode of paroxysmal atrial fibrillation, underwent coronary bypass grafting because of severe coronary artery disease. He has a prior history of diabetes and chronic tobacco use. He has been complaining of dyspnea with ambulation. He is feeling better overall. He denies any chest pain. He denies any dizziness or palpitation. He has had a repeat echocardiogram revealed ejection fraction 40% to 45% with a high pericardial effusion but no tamponade. Hemodynamically, he is stable otherwise. He continues to be on amiodarone 400 mg twice a day. He was started on Eliquis .5 mg twice a day aspirin once a day. He is on furosemide 40 mg q.12 hours and metoprolol tartrate 25 mg 3 times a day. PHYSICAL EXAMINATION: Blood pressure 137/70 with a heart rate in the 60S. LUNGS: With mild crackles, no wheeze. HEART: Regular rate and rhythm, S1, S2, no S2, no rub. ABDOMEN: Soft, nontender. EXTREMITIES: No significant edema. IMPRESSION: 1. Status post coronary artery bypass grafting. 2. Mild ischemic cardiomyopathy. 3. Paroxysmal atrial fibrillation. 4. Prior history of smoking. 5. Diabetes. 6. Acute renal injury postoperatively, stable. RECOMMENDATION: I will continue to increase his level of activity follow his renal function. If his pressure is stable, then I would recommend to add an CHALO inhibitor in view of his cardiomyopathy and history of diabetes. I would recommend to increase the dose of his Eliquis to 5 mg twice a day in view of his age and his renal function. MMODL / IJN: [id number] /
[2020-09-24 10:48] LABS: Glucose,Whole Blood 145 mg/dL (75-99)
[2020-09-24] MEDS ORDERED: CLOPIDOGREL 75 MG TAB PO SCH (11:15)
--- NOTE | 2020-09-24 12:01 | P.PN ---
Subjective Progress Note Date: 09/24/20 Principal diagnosis: NSTEMI Patient continues to complain from shortness of breath with ambulation. No chest pain. No fevers or chills. Objective - Vital Signs Vital signs: Vital Signs Temp 98.1 F 09/24/20 07:55 Pulse 68 09/24/20 07:55 Resp 21 09/24/20 07:55 BP 137/70 09/24/20 07:55 Pulse Ox 94 L 09/24/20 07:55 Intake & Output 09/23/20 09/24/20 09/24/20 18:59 06:59 18:59 Intake Total 660 240 Output Total 920 650 801 Balance -260 -650 -561 Weight 123.831 kg Intake: Oral 660 240 Output: Urine 920 650 801 Other: Voiding Method Toilet Urinal # Voids 1 2 400 # Bowel Movements 1 ABP, PAP, CO, CI - Last Documented Arterial Blood Pressure 111/64 Pulmonary Artery Pressure 29/11 Cardiac Output 8.1 Cardiac Index 3.3 - Exam General: non toxic, no distress, appears at stated age Derm: warm, dry Head: atraumatic, normocephalic, symmetric Eyes: EOMI, no lid lag, anicteric sclera Mouth: no lip lesion, mucus membranes moist Cardiovascular: S1S2 reg, no murmur, positive posterior tibial pulse bilateral, Lungs: Decreased bs bilateral, no rhonchi, no rales , no accessory muscle use Abdominal: soft, nontender to palpation, no guarding, no appreciable org anomegaly Ext: no gross muscle atrophy, trace edema, no contractures Neuro: CN II-XI grossly intact, no focal neuro deficits Psych: Alert, oriented, appropriate affect - Labs CBC & Chem 7: 09/24/20 08:24 09/24/20 08:24 Labs: Abnormal Lab Results - Last 24 Hours (Table) 09/23/20 09/23/20 09/23/20 Range/Units 11:55 16:48 20:46 RBC (4.30-5.90) m/uL Hgb (13.0-17.5) gm/dL Hct (39.0-53.0) % MCHC (31.0-37.0) g/dL Carbon Dioxide (22-30) mmol/L BUN (9-20) mg/dL Creatinine (0.66-1.25) mg/dL Glucose (74-99) mg/dL POC Glucose (mg/dL) 138 H 121 H 167 H (75-99) mg/dL 09/24/20 09/24/20 09/24/20 Range/Units 02:05 06:36 08:24 RBC 3.56 L (4.30-5.90) m/uL Hgb 9.6 L (13.0-17.5) gm/dL Hct 34.7 L (39.0-53.0) % MCHC 27.7 L (31.0-37.0) g/dL Carbon Dioxide (22-30) mmol/L BUN (9-20) mg/dL Creatinine (0.66-1.25) mg/dL Glucose (74-99) mg/dL POC Glucose (mg/dL) 112 H 104 H (75-99) mg/dL 09/24/20 09/24/20 Range/Units 08:24 10:46 RBC (4.30-5.90) m/uL Hgb (13.0-17.5) gm/dL Hct (39.0-53.0) % MCHC (31.0-37.0) g/dL Carbon Dioxide 21 L (22-30) mmol/L BUN 42 H (9-20) mg/dL Creatinine 1.30 H (0.66-1.25) mg/dL Glucose 155 H (74-99) mg/dL POC Glucose (mg/dL) 145 H (75-99) mg/dL Assessment and Plan Plan: Non-ST segment elevated myocardial infarction with LAD disease in the setting of diabetes s/p tripple vessel CABG 09/19, systolic cardiomyopathy with ejection fraction 40% -Cardiothoracic and cardiology recommendations -Carotid Dopplers normal -Aspirin, statin, BB, Cozaar added by cardiology today due to CHF -Strict I and O, monitor fluid closely. [place] - likely due to hypotension, decreased perfusion from A fib in conjunction with need for NSAIDS for pain control - off toradol - Improved. - avoid nephrotoxic agents - on midodrine for BP support, MAP >60 P. A fib, new onset this admission -Amio, lopressor increased by cardio to 25mg TID -Continue eliquis - tele SOB Pericardial effusion showing up on the echo, CT surgery aware CXR ok Started on lasix 4 doses. Follow clinically. Acute blood loss anemia - anticipated outcome of surgery - transfuse as indicated, hgb stable Diabetes mellitus type 2 with hyperglycemia -Stop metformin -Insulin SS with levemir 20 units daily -A1c 6.6, Plan for discharge home back on metformin if hyperglycemia improved. No need for insulin upon discharge. Thrombocytopenia - mild - follow CBC - HIT AB negative Abdominal aortic aneurysm 3 cm -Continue outpatient follow-up Hypertension, currently with low BP -Continue with current meds, on midodrine -Follow blood pressures Obesity with BMI 31.6 -Outpatient structured weight loss Tobacco abuse -Cessation Discussed with cardiothoracic surgery [employer] DVT prophylaxis: heparin Discussed with: Patient Anticipated discharge: Today Anticipated discharge place: Home A total of 35 minutes was spent on the care of this complex patient more than 50% of the time was spent in counseling and care coordination.
[2020-09-24 12:24] LABS: Glucose,Whole Blood 107 mg/dL (75-99)
[2020-09-24] MEDS: amLODIPine 2.5 MG TAB PO SCH (12:47)
[2020-09-24 13:43] VITALS: BP 120/57; PULSE 58; RESP 20
--- NOTE | 2020-09-24 13:51 | P.DS ---
Providers Date of admission: 09/16/20 21:55 Expected date of discharge: 09/24/20 Attending physician: Harjeet Roca Consults: 09/16/20 21:55 Consult Physician Urgent Consulting Provider: Hipolito Gilmore Consult Reason/Comments: NSTEMI Do you want consulting provider notified?: Already Contacted 09/17/20 07:18 Consult Physician Routine Consulting Provider: Harjeet Roca Consult Reason/Comments: cabg Do you want consulting provider notified?: Already Contacted 09/17/20 07:21 Consult Physician Routine Consulting Provider: Lester Bell Consult Reason/Comments: Pulmonary management, preoperative and postoperative care Do you want consulting provider notified?: Yes 09/17/20 14:45 Consult to Anesthesia Routine Consulting Provider: Anesthesia,Services Consult Reason/Comments: Cardiac Surgery Pre-Op 09/18/20 19:16 Consult Physician Routine Consulting Provider: Faith Ordonez Consult Reason/Comments: attending Do you want consulting provider notified?: Already Contacted Primary care physician: [facility] Course: FINAL DIAGNOSIS: 1. Symptomatic multivessel coronary artery disease, status post triple vessel coronary artery bypass grafting surgery 2. Non-ST elevated myocardial infarction this admission 3. Preoperative new onset atrial fibrillation with RVR, status post clipping of the left atrial appendage with an Atriclip 4. History of hypertension 5. Diabetes mellitus type 2 6. Chronic ongoing tobacco abuse 7. History of hiatal hernia 8. History of sleep apnea 9. COPD with a preoperative FEV1 54% of predicted value 10. Postoperative acute blood loss anemia, expected PRINCIPAL PROCEDURE: 1. Coronary artery bypass grafting 3 with left internal mammary artery to left anterior descending coronary artery, reverse greater saphenous vein graft off the aorta to the posterior ventricular branch of the right coronary artery and a radial artery off the aorta to the circumflex coronary artery. 2. Bilateral lower extremity greater saphenous vein endoscopic harvesting. 3. Endoscopic left radial artery harvest. 4. Clip ligation of the left atrial appendage using a 35 mm Atriclip. 5. Intraoperative transesophageal echocardiogram. HISTORY OF PRESENT ILLNESS: This is a 62-year-old gentleman who is followed by Dr. Marimar Bowers on an outpatient basis. He has a past medical history significant for hypertension, diabetes mellitus type 2, hiatal hernia, sleep apnea and chronic ongoing tobacco abuse. He presented to the emergency department here at [facility] with complaints of chest pain which was radiating to his bilateral upper extremities and with complaints of a racing heart. In the emergency department a 12-lead EKG was completed which showed atrial fibrillation with a heart rate of 120s with nonspecific STT wave changes in leads 3 and aVF. Initial laboratory results showed a glucose of 224, elevated troponins of 0.086 and as high as 5.460 which ruled him in for a non-ST elevated myocardial infarction. The patient was subsequently admitted to the hospital and was taken for a heart catheterization performed by Dr. Gilmore which demonstrated a totally occluded right coronary artery, a 30% stenosis to a circumflex coronary artery, a 99% stenosis was proximal left anterior descending coronary artery and a 70% stenosis to his mid left anterior descending coronary artery. During heart catheterization a left ventriculogram was completed which showed him to have an ejection fraction of 45%. Due to the findings on the cardiac catheterization consult was placed Dr. Harjeet Roca for cardiothoracic surgery for further evaluation and treatment recommendations including myocardial revascularization surgery. The heart catheterization films were reviewed with the patient, treatment options were discussed with the patient including myocardial revascularization surgery. Risks and benefits of myocardial revascularization surgery were discussed with the patient including the STS risk score and knowing and understanding these risks the patient wished to proceed with myocardial revascularization surgery. HOSPITAL COURSE: The patient was admitted to the hospital and on 09/19/2020 after obtaining consent the patient was brought to the preoperative area, prepared in the usual fashion and subsequently taken to the operating room where Dr. Harjeet Roca performed an urgent coronary artery bypass grafting 3 with left internal mammary artery to left anterior descending coronary artery, a reverse greater saphenous vein graft off the aorta to the posterior ventricular branch of the right coronary artery and a radial artery off the aorta to the circumflex coronary artery. He also underwent bilateral lower extremity greater saphenous vein graft endoscopic harvesting, endoscopic harvesting of the left radial artery, clip ligation of the left atrial appendage using a 35 mm Atriclip and a transesophageal echocardiogram. Upon completion of the surgery the patient was transferred to the cardiovascular intensive care unit where he was recovered, monitored hemodynamically and where he progressed cardiac rehabilitation phase 1. He was extubated, all lines, tubes and supportive drips were discontinued and appropriate and he was transferred to the cardiac stepdown unit for further monitoring and rehabilitation. His oxygen was titrated down, he continued to work with physical and occupational therapy, he was tolerating an oral diet, his pain was well-controlled and he was ready to be discharged home with [facility] care on postoperative day #5. He has received written and verbal instructions regarding his medications, activity restrictions, signs and symptoms requiring physician notification and his follow-up appointments. The patient did have some postoperative atrial fibrillation although this was expected as he did have some preoperative atrial fibrillation which was treated accordingly. COMPLICATIONS: There were no postoperative complications. CONSULTATIONS: 1. Dr. Gilmore for cardiology management. 2. Dr. Perez for pulmonary and ventilator management. 3. Dr. Ordonez for medical and diabetic management. Patient Condition at Discharge: Serious Plan - Discharge Summary Discharge Rx Participant: Yes New Discharge Prescriptions: New Amiodarone [Cordarone] 400 mg PO BID #33 tab Apixaban [Eliquis] 5 mg PO BID #60 tab Potassium Chloride ER [K-Dur 10] 10 meq PO DAILY #30 tab Furosemide [Lasix] 40 mg PO DAILY #30 tablet Atorvastatin [Lipitor] 80 mg PO HS #30 tab Metoprolol Tartrate [Lopressor] 25 mg PO TID #90 tab amLODIPine [Norvasc] 2.5 mg PO DAILY@1200 #30 tab Clopidogrel [Plavix] 75 mg PO DAILY #30 tab Pantoprazole [Protonix] 40 mg PO AC-BRKFST #30 tablet. Acetaminophen Tab [Tylenol] 1,000 mg PO Q6HR PRN tab PRN Reason: Fever And/ Or Pain Albuterol Inhaler [Ventolin Hfa Inhaler] 1 puff INHALATION RT-QID PRN 30 Days #1 puff PRN Reason: Dyspnea Continue Multivitamins, Thera [Multivitamin (formulary)] 1 tab PO HS Aspirin [Adult Low Dose Aspirin EC] 81 mg PO HS metFORMIN HCL [Glucophage] 500 mg PO BID Fluticasone/Umeclidin/Vilanter [Trelegy Ellipta 100-62.5-25] 1 puff INHALATION Q72H Losartan Potassium [Cozaar] 25 mg PO HS #30 tab Discharge Medication List Aspirin [Adult Low Dose Aspirin EC] 81 mg PO HS 09/16/20 [History] Fluticasone/Umeclidin/Vilanter [Trelegy Ellipta 100-62.5-25] 1 puff INHALATION Q72H 09/16/20 [History] Multivitamins, Thera [Multivitamin (formulary)] 1 tab PO HS 09/16/20 [History] metFORMIN HCL [Glucophage] 500 mg PO BID 09/16/20 [History] Acetaminophen Tab [Tylenol] 1,000 mg PO Q6HR PRN tab 09/24/20 [Rx] Albuterol Inhaler [Ventolin Hfa Inhaler] 1 puff INHALATION RT-QID PRN 30 Days #1 puff 09/24/20 [Rx] Amiodarone [Cordarone] 400 mg PO BID #33 tab 09/24/20 [Rx] Apixaban [Eliquis] 5 mg PO BID #60 tab 09/24/20 [Rx] Atorvastatin [Lipitor] 80 mg PO HS #30 tab 09/24/20 [Rx] Clopidogrel [Plavix] 75 mg PO DAILY #30 tab 09/24/20 [Rx] Furosemide [Lasix] 40 mg PO DAILY #30 tablet 09/24/20 [Rx] Losartan Potassium [Cozaar] 25 mg PO HS #30 tab 09/24/20 [Rx] Metoprolol Tartrate [Lopressor] 25 mg PO TID #90 tab 09/24/20 [Rx] Pantoprazole [Protonix] 40 mg PO AC-BRKFST #30 tablet.dr 09/24/20 [Rx] Potassium Chloride ER [K-Dur 10] 10 meq PO DAILY #30 tab 09/24/20 [Rx] amLODIPine [Norvasc] 2.5 mg PO DAILY@1200 #30 tab 09/24/20 [Rx] Follow up Appointment(s)/Referral(s): Hipolito Gilmore MD [STAFF PHYSICIAN] - 09/29/20 1:30 pm Kalen Esteban NPC [Nurse Practitioner] - 09/29/20 4:00 pm Marimar Bowers DO [REFERRING] - 10/04/20 3:00 pm Nonstaff,Physician [REFERRING] - 1-2 days Harjeet Roca MD [Primary Care Provider] - 10/15/20 1:15 pm Christian Perez MD [STAFF PHYSICIAN] - 10/07/20 10:00 am Ambulatory/Diagnostic Orders: Complete Blood Count w/diff [LAB.AMB] Time Frame: 09/27/20, Facility: [facility], Location: [facility] Comprehensive Metabolic Panel [LAB.AMB] Time Frame: 09/27/20, Facility: [facility], Location: [facility] Activity/Diet/Wound Care/Special Instructions: DISCHARGE INSTRUCTIONS: 1. No driving for 4 weeks, or until physician gives their ok. 2. The patient should sleep in their own bed, no medical bed needed. 3. Stairs are not an issue. If the bedroom is upstairs, it is advised that the patient go up at night and down in the morning for the first week. Go slowly, using handrail and take 1 step at a time. 4. FLOYD hose are to be worn for 30 days or until physician discontinues. 5. Heart hugger is to be worn 100% of the time until physician discontinues.(except when showering) 6. No lifting, pushing, or pulling more than 10 pounds for 12 weeks. The physician will advise of any restriction changes. 7. The patient is expected to continue the prescribed walking program. 8. Continue pain control per as needed orders. 9. Continue with incentive spirometry and splinting/heart hugger until otherwise directed by the physician. 10. Must shower daily using liquid antibacterial soap and a separate white washcloth for each individual incision. 11. Routine sternal incision care. No powders, lotions, ointments on incisions. No dressings are necessary on incisions unless they are draining. Dermabond tape is to remain on sternal incision until surgeon follow-up. 12. Please call surgeon/MANAGER PROFESSIONAL DEVELOPMENT for temp greater than 101 F or purulent drainage from incisions. 13. All prescriptions given by surgeon for 30 days. Refills need to be filled through echocardiologist/primary care physician. 14. A Red armband has been placed on the patient. It should be worn for 30 days post surgery and will be removed by the cardiac surgeons. If an ER visit is necessary, please make sure the number on the Red armband is called. 15. You have been referred to and are expected to begin Cardiac Rehab in approximately 4-6 weeks. en stop 16. Please weigh yourself every morning and keep a log of your daily weights. 17. The patient is being discharged on amiodarone which he will take amiodarone 400 mg by mouth twice a day until 09/27/2020, then decreased amiodarone 200 mg by mouth twice a day 7 days until 10/04/2020 then decreased to 200 mg by mouth daily 7 days then discontinue. HOME HEALTH SERVICES TO PROVIDE: RN SKILLED HOME CARE SERVICES FOR POST-OP SURGICAL PATIENTS WITH THE FOLLOWING: Coronary Artery Bypass Surgery (CABG), Mitral Valve Replacement/Repair ( MVR), Aortic Valve Replacement/Repair (AVR) RN TO CONTINUE EDUCATION FROM ``ROAD TO A HEALTH HEART PATIENT EDUCATION MANUAL (GIVEN TO PATIENT IN THE HOSPITAL) MEDICATION RECONCILIATION WITH EDUCATION NEEDED ON FIRST HOME VISIT EMPHASIZE IMPORTANCE OF WEARING BREAST SUPPORT/HEART HUGGER ENCOURAGE USE OF INCENTIVE SPIROMETER 10 X EVERY HOUR WHILE AWAKE ENCOURAGE UTILIZATION OF LOWER EXTREMITY COMPRESSION STOCKINGS/FLOYD HOSE and ELEVATE LEGS ABOVE LEVEL OF HEART WHILE AT REST. ENCOURAGE AMBULATION 3-5x/day INCREASING TOLERATES, WHILE AVOIDING EXTREMES IN TEMPERATURE FREQUENCY: RN TO OPEN THE PATIENT WITHIN 24 HOURS OF DISCHARGE FROM THE HOSPITAL WITH TELEHEALTH INSTALLED AT [facility], RN TO VISIT 2-3 X A WEEK FOR 4 WEEKS ESTABLISHED BY PATIENT NEEDS. LABORATORY: CBC, CMP TO BE DRAWN ON THE THIRD DAY HOME, 09/27/2020 (RAN STAT) FAX RESULTS TO [phone]. TELEHEALTH PARAMETERS: WEIGHT: NOTIFY MD OF WEIGHT GAIN OF 2 LBS IN 24 HOURS OR 5 LBS IN ONE WEEK HR: NOTIFY MD OF HR <55 BPM OR HR>100 BPM BP: NOTIFY MD IF BP <90/55 OR BP>140/100 O2 SAT: NOTIFY MD IF PO2<93% ON ROOM AIR SEND TELEHEALTH REPORT TO PATTERNMAKER GRADER AND CARDIOVASCULAR SURGEON THE FIRST WEEK OF CARE AND THEN BI-WEEKLY. PLEASE ADDITIONALLY COMMUNICATE ANY ABNORMALS AND NEW FINDINGS TO THE SURGEONS OFFICE. For any questions or concerns please call vc++ developer Brandy @ or Don @ Discharge Disposition: HOME WITH HOME HEALTH SERVICES
--- NOTE | 2020-09-24 14:40 | P.PN ---
Subjective Progress Note Date: 09/24/20 Principal diagnosis: Coronary artery disease, non-ST segment elevation myocardial infarction Patient is seen today 09/23/2020 in follow-up on the selective care unit. He is currently sitting up in bed. Awake and alert in no acute distress. He was quite short of breath earlier this morning. He received some IV Lasix and breathing treatment currently he is doing better but still with an end expiratory wheeze. He is dyspneic with exertion. Continues to maintain good O2 saturations in the mid 90s on room air. He's been afebrile. He did have postop A. fib with rapid ventricular rate. He is currently on an amiodarone drip at 0.5 mg/m. He is on oral beta blockers. His Lasix as scheduled now at 40 mg IV every 12 hours. Repeat limited echocardiogram today revealed mild to moderately impaired left ventricular systolic function with ejection fraction 40-45%. There is a moderate pericardial effusion noted near the left ventricle. White count 9.3. Hemoglobin 10.7. Platelet count 125. Sodium 139. Potassium 4.2. Creatinine 1.29. Chest x-ray reveals pleural parenchymal changes. No change compared. The patient is seen today 09/24/2020 in follow-up on the selective care unit. He is currently sitting up in a chair at the bedside. Awake and alert in no a cute distress. Breathing easier today compared to yesterday. Continue O2 saturations in the 90s on room air. He's been afebrile. Hemodynamically stable. White count 7.7. Hemoglobin 9.6. Sodium 139. Potassium 4.4. Creatinine 1.30. Chest x-ray revealed a mild stable right lower lobe infiltra te. Minimal effusion. Objective - Vital Signs Vital signs: Vital Signs Temp 98.1 F 09/24/20 07:55 Pulse 58 L 09/24/20 12:00 Resp 20 09/24/20 12:00 BP 120/57 09/24/20 12:00 Pulse Ox 94 L 09/24/20 12:00 Intake & Output 09/23/20 09/24/20 09/24/20 18:59 06:59 18:59 Intake Total 660 240 Output Total 920 650 801 Balance -260 -650 -561 Weight 123.831 kg Intake: Oral 660 240 Output: Urine 920 650 801 Other: Voiding Method Toilet Urinal # Voids 1 2 400 # Bowel Movements 1 ABP, PAP, CO, CI - Last Documented Arterial Blood Pressure 111/64 Pulmonary Artery Pressure 29/11 Cardiac Output 8.1 Cardiac Index 3.3 - Exam GENERAL EXAM: Awake, alert very pleasant 70-year-old gentleman, on room air, comfortable in no apparent distress. HEAD: Normocephalic. EYES: Sluggish reaction of pupils, equal size. NOSE: Clear with pink turbinates. THROAT: Oral endotracheal and gastric tube secured in place. No erythema or exudates. NECK: No masses, no JVD. CHEST: Sternal dressing dry and intact. Heart Hugger are in place LUNGS: Equal air entry with basilar crackles CVS: S1 and S2 normal with no audible murmur, regular rhythm. ABDOMEN: No hepatosplenomegaly, normal bowel sounds, no guarding or rigidity. SPINE: No scoliosis or deformity SKIN: No rashes CENTRAL NERVOUS SYSTEM: Sedated, tone is normal in all 4 extremities. EXTREMITIES: There is no peripheral edema. No clubbing, no cyanosis. Periph eral pulses are intact. - Labs CBC & Chem 7: 09/24/20 08:24 09/24/20 08:24 Labs: Abnormal Lab Results - Last 24 Hours (Table) 09/23/20 09/23/20 09/24/20 Range/Units 16:48 20:46 02:05 RBC (4.30-5.90) m/uL Hgb (13.0-17.5) gm/dL Hct (39.0-53.0) % MCHC (31.0-37.0) g/dL Carbon Dioxide (22-30) mmol/L BUN (9-20) mg/dL Creatinine (0.66-1.25) mg/dL Glucose (74-99) mg/dL POC Glucose (mg/dL) 121 H 167 H 112 H (75-99) mg/dL 09/24/20 09/24/20 09/24/20 Range/Units 06:36 08:24 08:24 RBC 3.56 L (4.30-5.90) m/uL Hgb 9.6 L (13.0-17.5) gm/dL Hct 34.7 L (39.0-53.0) % MCHC 27.7 L (31.0-37.0) g/dL Carbon Dioxide 21 L (22-30) mmol/L BUN 42 H (9-20) mg/dL Creatinine 1.30 H (0.66-1.25) mg/dL Glucose 155 H (74-99) mg/dL POC Glucose (mg/dL) 104 H (75-99) mg/dL 09/24/20 09/24/20 Range/Units 10:46 12:21 RBC (4.30-5.90) m/uL Hgb (13.0-17.5) gm/dL Hct (39.0-53.0) % MCHC (31.0-37.0) g/dL Carbon Dioxide (22-30) mmol/L BUN (9-20) mg/dL Creatinine (0.66-1.25) mg/dL Glucose (74-99) mg/dL POC Glucose (mg/dL) 145 H 107 H (75-99) mg/dL Assessment and Plan Assessment: 1 Non-ST segment elevation myocardial infarction with significant triple-vessel disease. Status post coronary revascularization with EGAN to the LAD, left radial arterial graft to the obtuse marginal branch, saphenous vein graft to the RCA. 2 Acute hypoxic respiratory failure requiring intubation mechanical ventilatory support, expected outcome of surgery and recovered and on room air 3 Atrial fibrillation 4 Diabetes mellitus 5 Chronic tobacco dependence 6 Hypertension 7 Moderate pericardial effusion, an expected outcome of surgery Plan: The patient was seen and evaluated by Dr. Perez Cleared for discharge from the pulmonary standpoint Continue Trelegy and albuterol Follow up in the office in 1-2 weeks' time We will repeat a chest x-ray done We will continue to follow make further recommendations based on his clinical status I, the cosigning physician, performed a history & physical examination of the patient. Lungs sounds basilar crackles. Maintaining good O2 saturations in the 90s on room air. I discussed the assessment and plan of care with my nurse practitioner, Patricia Munguia. I attest to the above note as dictated by her.
[2020-09-24] MEDS ORDERED: APIXABAN 5 MG TAB PO SCH (21:00)
[2020-09-24] MEDS ORDERED: LOSARTAN 25 MG TAB PO SCH (21:00)
== END 2020-09-24 15:30 | disposition home health service (06) | DRG 233 ==
LOC: EC 20:46 → 3SCARD 21:55 → 2SICU 09-18 14:43 → 3SCARD 09-22 18:49
PROVIDERS: ADMIT Thoracic Surgery (Cardiothoracic Vascular Surgery); ATTEND Thoracic Surgery (Cardiothoracic Vascular Surgery)
PROC: B54DZZZ Ultrasonography of Bilateral Lower Extremity Veins (ICD-10-PCS; 2020-09-16)
PROC: B2111ZZ Fluoroscopy of Multiple Coronary Arteries using Low Osmolar Contrast (ICD-10-PCS; 2020-09-17)
PROC: B2151ZZ Fluoroscopy of Left Heart using Low Osmolar Contrast (ICD-10-PCS; 2020-09-17)
PROC: 4A023N7 Measurement of Cardiac Sampling and Pressure, Left Heart, Percutaneous Approach (ICD-10-PCS; 2020-09-17)
PROC: 06BQ4ZZ Excision of Left Saphenous Vein, Percutaneous Endoscopic Approach (ICD-10-PCS; principal; 2020-09-19 08:00)
PROC: 021009W Bypass Coronary Artery, One Artery from Aorta with Autologous Venous Tissue, Open Approach (ICD-10-PCS; principal; 2020-09-19 08:00)
PROC: 06BP4ZZ Excision of Right Saphenous Vein, Percutaneous Endoscopic Approach (ICD-10-PCS; principal; 2020-09-19 08:00)
PROC: 02L70CK Occlusion of Left Atrial Appendage with Extraluminal Device, Open Approach (ICD-10-PCS; principal; 2020-09-19 08:00)
PROC: 02100Z9 Bypass Coronary Artery, One Artery from Left Internal Mammary, Open Approach (ICD-10-PCS; principal; 2020-09-19 08:00)
PROC: 03BC4ZZ Excision of Left Radial Artery, Percutaneous Endoscopic Approach (ICD-10-PCS; principal; 2020-09-19 08:00)
PROC: 5A1221Z Performance of Cardiac Output, Continuous (ICD-10-PCS; principal; 2020-09-19 08:00)
PROC: 02100AW Bypass Coronary Artery, One Artery from Aorta with Autologous Arterial Tissue, Open Approach (ICD-10-PCS; principal; 2020-09-19 08:00)
DX: I21.4 Non-ST elevation (NSTEMI) myocardial infarction (principal); J96.01 Acute respiratory failure with hypoxia; N17.9 Acute kidney failure, unspecified; I31.3 Pericardial effusion (noninflammatory); D62 Acute posthemorrhagic anemia; Z20.828 Contact with and (suspected) exposure to other viral communicable diseases; D69.6 Thrombocytopenia, unspecified; Z68.33 Body mass index [BMI] 33.0-33.9, adult; J44.9 Chronic obstructive pulmonary disease, unspecified; I95.9 Hypotension, unspecified; I48.0 Paroxysmal atrial fibrillation; I71.4 Abdominal aortic aneurysm, without rupture; I10 Essential (primary) hypertension; F17.200 Nicotine dependence, unspecified, uncomplicated; E11.65 Type 2 diabetes mellitus with hyperglycemia; I25.5 Ischemic cardiomyopathy; E78.5 Hyperlipidemia, unspecified; I25.10 Atherosclerotic heart disease of native coronary artery without angina pectoris; K44.9 Diaphragmatic hernia without obstruction or gangrene; I25.84 Coronary atherosclerosis due to calcified coronary lesion; E66.9 Obesity, unspecified; G47.33 Obstructive sleep apnea (adult) (pediatric); Z71.3 Dietary counseling and surveillance; Z71.6 Tobacco abuse counseling; Z79.82 Long term (current) use of aspirin; Z79.84 Long term (current) use of oral hypoglycemic drugs; Z79.899 Other long term (current) drug therapy; Z98.890 Other specified postprocedural states; Z82.3 Family history of stroke; Z82.49 Family history of ischemic heart disease and other diseases of the circulatory system
CPT/HCPCS: 36415; 71045; 71046; 80048; 80053; 80061; 80074; 81001; 82330; 82805; 83036; 83735; 83880; 84443; 84484; 85025; 85027; 85520; 85610; 85730; 86022; 86850; 86891; 86900; 86901; 86920; 87070; 87635; 93005; 93306; 93308; 93458; 93880; 93922; 93970; 93979; 94002; 94150; 94640; 94760; 96365; 96366; 96368; 96376; 99291

== ENCOUNTER → 2021-06-16 | Outpatient (CLI) | payer MEDICARE, BC ==
--- NOTE | 2021-06-16 07:13 | CTL ---
EXAMINATION TYPE: CT Low Dose Lung DATE OF EXAM ORDERED: 06/16/2021 HISTORY: Long-term tobacco use. Lung cancer screening CT DLP: [address] CTDI: 2.60 mGy Automated exposure control for dose reduction was used. SCREENING VISIT: Baseline COMPARISON: None. TECHNIQUE: Low dose computed tomography scan was performed through the chest at 1 mm thick sections a nd reconstructed images in the coronal plane at [address] DIAGNOSTIC QUALITY: Limited, but interpretable FINDINGS: LUNG NODULES: None. LUNGS: COPD: Severity: Mild to moderate Fibrosis: Severity: Mild to moderate scattered throughout right lung Lymph nodes: No greater than 1 cm Other findings: None RIGHT PLEURAL SPACE: Effusion: Tiny Calcification: None Thickening: Tiny Pneumothorax: None LEFT PLEURAL SPACE: Effusion: None Calcification: None Thickening: None Pneumothorax: None HEART: Heart Size: Normal Coronary calcification: Post-CABG changes present Pericardial effusion: None OTHER FINDINGS: Upper abdomen: Artifact degradation. No significant abnormality. Bony thorax: Focal moderate spurring mid to lower thoracic spine Supraclavicular region: None Other: Prominent pulmonary arteries, CT findings suggesting underlying pulmonary artery hypertension IMPRESSION: Chronic changes without suspicious noncalcified nodules, asymmetric right-sided fibrotic changes noted. CT LUNG RAD AND CT CHEST RECOMMENDATION: Lung-Rad 1 Negative: Continue annual screening with LDCT in 12 months. S Modifier (other clinically significant findings): None
== END | disposition home or self-care (01) ==
LOC: RADCTMAIN 06:46
PROVIDERS: ATTEND Internal Medicine Critical Care Medicine
DX: Z12.2 Encounter for screening for malignant neoplasm of respiratory organs (principal); J84.10 Pulmonary fibrosis, unspecified; Z87.891 Personal history of nicotine dependence
CPT/HCPCS: 71271

== ENCOUNTER → 2023-03-19 | Outpatient (CLI) | payer MEDICARE, BC ==
--- NOTE | 2023-03-19 08:55 | US ---
EXAMINATION TYPE: US kidneys/renal and bladder DATE OF EXAM: 03/19/2023 COMPARISON: NONE CLINICAL INDICATION: Male, 73 years old with history of N28.9 DISORDER OF KIDNEY AND URETER, UNSPECIF IED; abn kidney function test EXAM MEASUREMENTS: Right Kidney: 12.8 x 4.1 x 4.4 cm Left Kidney: 11.6 x 6.3 x 4.6 cm Right Kidney: Hypoechoic area lower pole 1.3 x 1.3 x 1.4 cm. Left Kidney: wnl Bladder: anechoic Bilateral Jets seen: no There is no evidence for hydronephrosis at this point in time. No nephrolithiasis is seen. No shay s are identified. The urinary bladder is anechoic. IMPRESSION: 1. 1.25 exophytic hypoechoic well-circumscribed mass in the mid to lower pole right kidney. Cannot be classified as a simple cortical cyst although a small hemorrhagic cyst is favored. CT of the kidneys would be useful for further evaluation. 2. No renal calcifications, hydronephrosis. 3. No cortical thinning or abnormal increased echogenicity.
== END | disposition home or self-care (01) ==
LOC: RADUSWWP 07:42
PROVIDERS: ATTEND Internal Medicine
DX: N28.9 Disorder of kidney and ureter, unspecified (principal)
CPT/HCPCS: 76770

== ENCOUNTER → 2023-03-29 | Outpatient (CLI) | payer MEDICARE, BC ==
--- NOTE | 2023-03-30 12:50 | CT ---
EXAMINATION TYPE: CT abdomen wo/w con DATE OF EXAM: 03/29/2023 COMPARISON: Ultrasound 03/19/2023 HISTORY: right renal mass found on prior US CT DLP: 1996 mGycm CONTRAST: CT scan of the abdomen is performed with Oral Contrast and without and with IV Contrast, patient inj ected with 80ML mL of Isovue 300. FINDINGS: LUNG BASES-: No visible nodule. No infiltrate. LIVER/GB: No calcified gallstones. No space occupying hepatic lesion. Biliary tree is of normal ca liber. PANCREAS: No inflammation. No distinct mass. SPLEEN: No splenic enlargement. No lesion seen. ADRENALS: No nodule. No thickening. KIDNEYS/BLADDER: Exophytic lesion mid pole right kidney measuring 1.3 cm demonstrates precontrast Pal nsfield unit of 8.5 and postcontrast Hounsfield unit of the 13. This is compatible with a small simpl e cyst. No solid masses are seen of either kidney. There is no evidence for nephrolithiasis or hydron ephrosis. BOWEL: The visualized bowel loops are of normal caliber. LYMPH NODES: No greater than 1cm abdominal or pelvic lymph nodes are appreciated. AORTA: No significant abnormality. OSSEOUS STRUCTURES: No significant abnormality is seen. OTHER: No significant additional abnormality is seen. IMPRESSION: 1. 1.3 cm exophytic simple cyst midpole right kidney without evidence for solid renal lesion.
== END | disposition home or self-care (01) ==
LOC: RADCTMAIN 14:02
PROVIDERS: ATTEND Internal Medicine
DX: N28.1 Cyst of kidney, acquired (principal); N28.89 Other specified disorders of kidney and ureter
CPT/HCPCS: 82565; 84520; 74170; 36415; Q9967

== ENCOUNTER 2023-07-13 10:45 | Day surgery (SDC) | payer MEDICARE, BC ==
[2023-07-13] MEDS: LACTATED RINGERS 1,000 ML IV SCH ×2 (12:14→12:33)
[2023-07-13 12:18] VITALS: TEMP 97
[2023-07-13 12:18] LABS: Glucose,Whole Blood 126 mg/dL (70-110)
[2023-07-13] MEDS ORDERED: PROPOFOL 10 MG/ML 20 ML VIAL IV ONE (12:35)
--- NOTE | 2023-07-13 12:54 | P.PCN ---
Date of Procedure: 07/13/23 Procedure(s) Performed: BRIEF HISTORY: Patient is a 73-year-old pleasant male scheduled for an elective colonoscopy as a part of screening for colon cancer PROCEDURE PERFORMED: Colonoscopy with biopsy. PREOPERATIVE DIAGNOSIS: Screening for colon cancer. IV sedation per Anesthesia. PROCEDURE: After informed consent was obtained, the patient, was brought into the endoscopy unit. IV sedation was administered by Anesthesia under continuous monitoring. Digital rectal examination was normal. Initially the Olympus CF-160 flexible video colonoscope was then inserted in the rectum, gradually advanced into the cecum without any difficulty. Careful examination was performed as the scope was gradually being withdrawn. Ileocecal valve and the appendiceal orifice were visualized and appeared normal. Prep was excellent. Mucosa of the cecum, ascending colon, appeared normal. In the transverse colon there was a 3 mm polyp that was removed by cold biopsy. Rest of the transverse colon, descending colon, appeared normal. In the sigmoid there was a 4 mm and 5 limited polyp that was removed by cold biopsy. Rest of the sigmoid colon, and rectum appeared normal. Retroflexion was performed in the rectum and no lesions were seen. The patient tolerated the procedure well. IMPRESSION: 3 mm transverse colon polyp status post cold biopsy 4 mm and 5 mm; sigmoid polyp status post cold biopsy Rest of the colon appeared normal RECOMMENDATIONS: Findings of this examination were discussed with the patient as well as his family. He was advised to follow with the biopsy results. If the biopsy results adenoma he can have a repeat colonoscopy in 5 years.
[2023-07-13 13:20] VITALS: BP 134/74; PULSE 56; RESP 20
== END 2023-07-13 13:41 | disposition home or self-care (01) ==
LOC: ORWHC2ENDO 10:45
PROVIDERS: ATTEND Internal Medicine Gastroenterology
DX: Z12.11 Encounter for screening for malignant neoplasm of colon (principal); D12.3 Benign neoplasm of transverse colon; D12.5 Benign neoplasm of sigmoid colon; I10 Essential (primary) hypertension; E78.5 Hyperlipidemia, unspecified; I25.10 Atherosclerotic heart disease of native coronary artery without angina pectoris; I48.91 Unspecified atrial fibrillation; G47.33 Obstructive sleep apnea (adult) (pediatric); J44.9 Chronic obstructive pulmonary disease, unspecified; E11.9 Type 2 diabetes mellitus without complications; K21.9 Gastro-esophageal reflux disease without esophagitis; Z79.82 Long term (current) use of aspirin; Z79.84 Long term (current) use of oral hypoglycemic drugs; Z79.899 Other long term (current) drug therapy
CPT/HCPCS: 88305; 45380; J2704

== ENCOUNTER → 2024-01-14 | Outpatient (CLI) | payer MEDICARE, BC ==
--- NOTE | 2024-01-14 10:48 | CTL ---
EXAMINATION TYPE: CT Low Dose Lung DATE OF EXAM ORDERED: 01/14/2024 HISTORY: . Lung cancer screening CT DLP: 175.[address] CTDI: 4.3 mGy Automated exposure control for dose reduction was used. SCREENING VISIT: Follow-up. COMPARISON: 01/10/2023. TECHNIQUE: Low dose computed tomography scan was performed through the chest at 1 mm thick sections a nd reconstructed images in multiple planes at 1 mm and [address] DIAGNOSTIC QUALITY: Satisfactory FINDINGS: LUNG NODULES: No significant pulmonary nodules are identified. LUNGS: COPD: Severity: None Fibrosis: Severity: There is an scattered bands of opacity throughout the lungs bilaterally which are likely atelectasis or scarring. The lungs otherwise appear clear. Lymph nodes: No adenopathy. Other findings: RIGHT PLEURAL SPACE: Effusion: Trace. Calcification: None Thickening: Mild pleural thickening. Pneumothorax: None LEFT PLEURAL SPACE: Effusion: None Calcification: None Thickening: None Pneumothorax: None HEART: Heart Size: Normal Coronary Calcification: There are midline sternotomy wires. 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 There are severe coronary artery calcifications. Pericardial Effusion: None OTHER FINDINGS: Upper abdomen: None Bony thorax: None Supraclavicular region: None Other: None IMPRESSION: 1. Negative lung cancer screening examination for new or significant pulmonary nodules. 2. Unchanged chronic lung changes described above. 3. Surgical changes of prior CABG with severe coronary artery calcifications. CT LUNG RAD AND CT CHEST RECOMMENDATION: Lung-Rad 2 Benign Appearance or Behavior: Continue annual sc reening with LDCT in 12 months.
== END | disposition home or self-care (01) ==
LOC: RADCTMAIN 07:42
PROVIDERS: ATTEND Internal Medicine
DX: Z12.2 Encounter for screening for malignant neoplasm of respiratory organs (principal); I25.10 Atherosclerotic heart disease of native coronary artery without angina pectoris; R91.8 Other nonspecific abnormal finding of lung field; Z95.1 Presence of aortocoronary bypass graft; Z87.891 Personal history of nicotine dependence
CPT/HCPCS: 71271

== ENCOUNTER → 2025-01-14 | Outpatient (CLI) | payer MEDICARE, BC ==
--- NOTE | 2025-01-14 10:28 | CTL ---
EXAMINATION TYPE: CT Low Dose Lung DATE OF EXAM: 01/14/2025 10:06 AM COMPARISON: 01/14/2024 CLINICAL INDICATION: Male, 74 years old with history of Z87.891 personal hx tobacco use; HISTORY OF S K[place], history of tobacco use. TECHNIQUE: Multiple axial non-contrast scans were obtained from approximately the lung apices through the upper abdomen. Coronal and sagittal reformatted images were obtained. Low dose technique was uti lized. MIP were created on a separate workstation and submitted for review. CT DLP: 103 mGycm, Automated exposure control for dose reduction was used. CT Contrast: Contrast used: None Oral contrast used: None FINDINGS: Lack of intravenous contrast and low dose technique limits the evaluation of the vascular and soft ti ssue structures. LUNGS: No evidence of pulmonary fibrosis. No evidence of focal consolidation, pneumothorax or pleural effusion. Centrilobular emphysema changes. Nodules: RUL: None. RML: None. RLL: None. LIBRA: None. LLL: None. AIRWAY: Patent and unremarkable. HEART: Size within normal limits. Moderate coronary artery calcifications present. MEDIASTINUM: No gross evidence of adenopathy. VASCULATURE: No aortic aneurysm. MUSCULOSKELETAL: No acute osseous abnormalities SOFT TISSUES/LYMPH NODES: Unremarkable. LOWER NECK: No significant findings. UPPER ABDOMEN: No significant findings. IMPRESSION: 1. No clinically significant pulmonary nodules. 2. Mild emphysema. CT LUNG RAD AND CT CHEST RECOMMENDATION: Lung-Rad 1 Negative: Continue annual screening with LDCT in 12 months. S Modifier (other clinically significant findings): None Recommend smoking cessation (if current smoker), or continuation of smoking cessation (if prior smoke r). Annual screening for lung cancer with low-dose computed tomography is recommended in adults ages 55 to 77 years who have a 30 pack-year smoking history and currently smoke or have quit within the pa st 15 years. Screening should be discontinued once a person has not smoked for 15 years or develops a health problem that substantially limits life expectancy or the ability or willingness to have curat ashly lung surgery. Lung rads 2021 [email or web address] [email or web address], Workstation: [employer] LabsAPHSundance Research InstituteJLMPH, 01/14/2025 10:26 AM
== END | disposition home or self-care (01) ==
LOC: RADCTMAIN 09:23
PROVIDERS: ATTEND Internal Medicine Critical Care Medicine
DX: Z12.2 Encounter for screening for malignant neoplasm of respiratory organs (principal); J43.2 Centrilobular emphysema; Z87.891 Personal history of nicotine dependence
CPT/HCPCS: 71271